=== PATIENT | male | born 1955 | race Caucasian/White ===

== ENCOUNTER 2021-10-09 08:00 | Outpatient (CLI) | payer OTHER, SELFPAY | END 2021-10-09 08:01 | disposition home or self-care (01) | PROVIDERS: Visit Provider Nurse Practitioner Family | DX: E11.622 Type 2 diabetes mellitus with other skin ulcer (principal); I87.2 Venous insufficiency (chronic) (peripheral); I89.0 Lymphedema, not elsewhere classified; I87.313 Chronic venous hypertension (idiopathic) with ulcer of bilateral lower extremity; L97.815 Non-pressure chronic ulcer of other part of right lower leg with muscle involvement without evidence of necrosis; L97.215 Non-pressure chronic ulcer of right calf with muscle involvement without evidence of necrosis; L97.825 Non-pressure chronic ulcer of other part of left lower leg with muscle involvement without evidence of necrosis; L97.822 Non-pressure chronic ulcer of other part of left lower leg with fat layer exposed; Z79.84 Long term (current) use of oral hypoglycemic drugs; E66.01 Morbid (severe) obesity due to excess calories; Z68.44 Body mass index [BMI] 60.0-69.9, adult; S81.002A Unspecified open wound, left knee, initial encounter | CPT/HCPCS: 11042; 11043; 11046 ==

== ENCOUNTER 2021-10-21 08:37 | Outpatient (CLI) | payer OTHER, SELFPAY ==
--- NOTE | 2021-10-21 08:45 | CRLHL7_ITS ---
For Patients: As a result of the Century Cures Act, medical imaging exams and procedure reports are released immediately into your electronic medical record. You may view this report before your referring provider. If you have questions, please contact your health care provider. DUPLEX ARTERIAL ULTRASOUND BILATERAL LOWER EXTREMITY CLINICAL HISTORY: Lower extremity pain, concern for peripheral disease. COMPARISON: None. TECHNIQUE: The bilateral lower extremity arteries were examined per exam specific protocol with kitchen-scale ultrasound, color-flow and Doppler spectral analysis. Peak systolic velocities (PSV), Doppler waveform quality and Velocity Ratios if applicable, were documented at sites per exam specific protocol. FINDINGS: Multiphasic waveforms are seen throughout both lower extremity arterial systems. No evidence of hemodynamically significant stenoses or occlusions. RIGHT: PSV (cm/second). Waveform (Tri-T, Bi-B Ross-M). O AND M SUPERVISOR: 108. T. DFA: 90. T. FA PRX: 99. T. FA MID: 111. T. FA DISTAL: 100. T. POP A: 100. T. MERI A: 67. Multi. WOOD TURNING LATHE OPERATOR: 60. Multi. OCTAVIANO: 36. Multi. DPA: 54. Multi. LEFTT: PSV (cm/second). Waveform (Tri-T, Bi-B Ross-M). O AND M SUPERVISOR: 92. T. DFA: 39. T. FA PRX: 123. T. FA MID: 108. T. FA DISTAL: 115. T. POP A: 104. T. MERI A: 38. Multi. WOOD TURNING LATHE OPERATOR: 49. Multi. OCTAVIANO: 36. Multi DPA: 91. Multi. IMPRESSION: Multiphasic waveforms throughout both lower extremity arterial systems. No evidence of hemodynamically significant stenoses or occlusions. Douglas Jaimes M.D. [email or web address] YARELIS/Dictated by: Douglas Jaimes MD @ 10/21/2021 2:42:00 PM (Electronically Signed)
== END 2021-10-21 08:38 | disposition home or self-care (01) ==
LOC: US 08:38
PROVIDERS: PCP Internal Medicine; Visit Provider Nurse Practitioner Family
DX: M79.604 Pain in right leg (principal); M79.605 Pain in left leg
CPT/HCPCS: 93926

== ENCOUNTER 2021-10-21 09:54 | Outpatient (CLI) | payer OTHER, SELFPAY | END 2021-10-21 09:55 | disposition home or self-care (01) | LOC: WOUND 09:55 | PROVIDERS: PCP Internal Medicine; Visit Provider Physician Assistant Surgical | DX: E11.622 Type 2 diabetes mellitus with other skin ulcer (principal); I87.311 Chronic venous hypertension (idiopathic) with ulcer of right lower extremity; L97.212 Non-pressure chronic ulcer of right calf with fat layer exposed; S81.802A Unspecified open wound, left lower leg, initial encounter | CPT/HCPCS: 99214 ==

== ENCOUNTER 2021-10-26 10:47 | Outpatient (CLI) | payer OTHER, SELFPAY | END 2021-10-26 10:48 | disposition home or self-care (01) | LOC: WOUND 10:47 | PROVIDERS: PCP Internal Medicine; Visit Provider Nurse Practitioner Family | DX: E11.622 Type 2 diabetes mellitus with other skin ulcer (principal); L97.815 Non-pressure chronic ulcer of other part of right lower leg with muscle involvement without evidence of necrosis; L97.825 Non-pressure chronic ulcer of other part of left lower leg with muscle involvement without evidence of necrosis; L97.215 Non-pressure chronic ulcer of right calf with muscle involvement without evidence of necrosis; I89.0 Lymphedema, not elsewhere classified; Z79.84 Long term (current) use of oral hypoglycemic drugs | CPT/HCPCS: 11042; 11045 ==

== ENCOUNTER 2021-11-03 13:02 | Outpatient (CLI) | payer OTHER, SELFPAY | END 2021-11-03 13:03 | disposition home or self-care (01) | LOC: WOUND 13:02 | PROVIDERS: PCP Internal Medicine; Visit Provider Nurse Practitioner Family | DX: E11.622 Type 2 diabetes mellitus with other skin ulcer (principal); L97.215 Non-pressure chronic ulcer of right calf with muscle involvement without evidence of necrosis; L97.815 Non-pressure chronic ulcer of other part of right lower leg with muscle involvement without evidence of necrosis; S81.802A Unspecified open wound, left lower leg, initial encounter; Z79.84 Long term (current) use of oral hypoglycemic drugs | CPT/HCPCS: 11042 ==

== ENCOUNTER 2021-11-17 09:03 | Outpatient (CLI) | payer OTHER, SELFPAY | END 2021-11-17 09:04 | disposition home or self-care (01) | LOC: WOUND 09:03 | PROVIDERS: PCP Internal Medicine; Visit Provider Nurse Practitioner Family | DX: E11.622 Type 2 diabetes mellitus with other skin ulcer (principal); L97.815 Non-pressure chronic ulcer of other part of right lower leg with muscle involvement without evidence of necrosis; S81.802A Unspecified open wound, left lower leg, initial encounter; I89.0 Lymphedema, not elsewhere classified; Z79.84 Long term (current) use of oral hypoglycemic drugs | CPT/HCPCS: 11042 ==

== ENCOUNTER 2021-12-01 09:12 | Outpatient (CLI) | payer OTHER, SELFPAY | END 2021-12-01 09:13 | disposition home or self-care (01) | LOC: WOUND 09:13 | PROVIDERS: PCP Internal Medicine; Visit Provider Nurse Practitioner Family | DX: E11.622 Type 2 diabetes mellitus with other skin ulcer (principal); L97.815 Non-pressure chronic ulcer of other part of right lower leg with muscle involvement without evidence of necrosis; L97.215 Non-pressure chronic ulcer of right calf with muscle involvement without evidence of necrosis; Z79.84 Long term (current) use of oral hypoglycemic drugs | CPT/HCPCS: 11042 ==

== ENCOUNTER 2021-12-26 11:24 | Emergency (ER) | payer OTHER, SELFPAY ==
--- NOTE | 2021-12-26 11:29 | ED.GENADULT ---
HPI - General Adult General Chief complaint: Back Injury/Pain Stated complaint: lower back pain left side Time Seen by Provider: 12/26/21 11:26 History of Present Illness HPI narrative: Ender is a 66yo male patient with h/o T2DM, chronic bilateral LE wounds, and chronic back pain that presents to the ED via POV with complaints of left sided back pain. Review of Ender's records indicate that he was recently seen in September of 2021 for complaints of poorly controlled chronic bilateral lower extremity wounds. At that time, the patient was scheduled for outpatient infusion of IV antibiotics. Patient reports he has not had significant change in smell, pain, or drainage noted from the wound. Although, he reports, at wound care states that the wounds are significantly improving. The patient states today, his family noted with wound dressing change that there is odor to the wound again. He does not smell this. In addition, the patient states that his low back pain on the left has been present for approximately 3 days. It is worsened with movement and forward bending. The patient states he has had no recent trauma or injury. Although, the patient had a fall approximately 4 months prior. He was in the emergency department, evaluated, and treated. He is uncertain this could be secondary to urinary complaints. He does not have a history of frequent urinary tract infection or kidney stones. Related Data Home Medications Medication Instructions Recorded Confirmed acetic acid 0.25 % irrigation 12/26/21 solution amiodarone 200 mg tablet mg 12/26/21 apixaban 5 mg tablet (Eliquis) mg 12/26/21 carvedilol 12.5 mg tablet mg 12/26/21 gentamicin 0.1 % topical ointment topical 12/26/21 metformin 500 mg tablet mg 12/26/21 pravastatin 20 mg tablet mg 12/26/21 sacubitril 49 mg-valsartan 51 mg tab 12/26/21 tablet (Entresto) spironolactone 25 mg tablet mg 12/26/21 tizanidine 4 mg tablet mg 12/26/21 Previous Rx's Medication Instructions Recorded hydrocodone 5 mg-acetaminophen 325 1 tab PO BID PRN flank pain #6 tabs 12/26/21 mg tablet sulfamethoxazole 800 1 tab PO BID #10 tabs 12/26/21 mg-trimethoprim 160 mg tablet (Bactrim DS) Allergies Allergy/AdvReac Type Severity Reaction Status Date / Time No Known Drug Allergies Allergy Verified 12/26/21 11:41 Review of Systems Const: Denies: fever, chills, fatigue or malaise Eyes: Denies: change in vision or blurry vision ENMT: Denies: throat pain or ear pain Cardio: Denies: chest pain, palpitations or shortness of breath with exertion Resp: Denies: shortness of breath, cough, wheezing or pain on inspiration GI: Denies: abdominal pain, nausea, vomiting, diarrhea or constipation : Denies: painful urination, urinary frequency or urinary urgency Musculo: Reports: back pain; Denies: joint pain Integ/Breast: Reports: non-healing lesion (chronic LE wounds, reportedly improved per patient); Denies: rash Neuro: Denies: headache, numbness in extremities, weakness in extremities or dizziness Psych: Denies: anxiety or mood swings Endo: Denies: fatigue Allergy/Immuno: Denies: wheezing PFSH PFSH Social History Smoking Status: Unknown if ever smoked How often do you have a drink containing alcohol: never How often do you have six or more drinks on one occasion: Never AUDIT-C Alcohol total score: 0 Non-prescribed substance use: denies use Exam Const: Vital Signs, click to edit/add: Vital Signs - 24 hr 12/26/21 11:34 Temperature 97.0 F L Pulse Rate [Right Pulse Oximeter] 62 Respiratory Rate 20 Blood Pressure [Ri ght Upper Arm] 149/97 H Pulse Oximetry 94 Oxygen Delivery Me thod Room Air Documenting provider has reviewed patient's vital signs: yes Common normals: no apparent distress, oriented x3, no limitations, healthy appearing, alert and well nourished General appearance: cooperative, comfortable and well developed; not in distress Nutritional appearance: obese morbidly obese Orientation/consciousness: Yes awake, Yes oriented to person and Yes oriented to place HENMT: Common normals: normocephalic, head/scalp atraumatic and hearing grossly normal bilaterally Head and scalp: normocephalic and atraumatic Face and sinus: normal facial exam (within limits of masking) Eye: Common normals: EOMs intact bilaterally General eye: normal appearance of both eyes Resp: Common normals: normal respiratory effort, no retractions, no use of accessory muscles and clear to auscultation bilaterally Effort & inspection: able to speak in complete sentences Auscultation: clear to auscultation bilaterally Cardio: Common normals: regular rate, regular rhythm, S1 normal heart sound and S2 normal heart sound Rate: regular rate Rhythm: regular rhythm Heart sounds: S1 normal and S2 normal Other: HS distant 2/2 body habitus GI: Common normals: soft to palpation and non-tender Palpation: soft : Common normals: no CVA tenderness Bladder/kidney exam: no CVA tenderness Back & Pelvis: Common normals: no CVA tenderness, thoracic and lumbar spine normal to inspection and no thoracic nor lumbar tenderness Extremity: General: edema (bilateral chronic, pitting with wraps in place; scaling chronic icthyosis) and other findings (greenish-yellow discharge noted on wound dressing, minimal) Legs Lower/ Feet Lateral Rt1: 1. wound 4.5cm x 2.5cm (est) with granulomatous tissue surrounding 2. 1cm (est) circular wound with granulomatous tissue surrounding Neuro: Common normals: oriented x3, moves all extremities, no focal motor deficits and no sensory deficits noted Sensorium/orientation: awake, alert, oriented to person and oriented to place Gait (neuro): assistive device used other (walker at home, wheelchair for distances) Motor exam: no movement abnormalities noted Psych: Common normals: mental status grossly normal, thought process normal and activity/motor behavior normal Appearance: grossly normal Thought process: normal thought process Thought content: normal thought content Attention/concentration: attention grossly intact Memory/cognition: memory grossly intact Insight: insight good Judgement: judgment good Skin: Common normals: no rashes or lesions noted General skin exam: no rashes or lesions noted Course Course Hospital Course: Ender presented with complaints of left low back pain without acute injury or trauma and request for reevaluation of RLE wound, currently followed by wound care. He has labs as noted with plan for evaluation of possible etiology of condition. No acute trauma or injury to suggest musculoskeletal injury, however patient is supermorbidly obese, and we discussed potential self-injury due to body habitus. Patient's RLE wound was unwrapped, cultured, and fresh wrap was placed for wound care. Labs are pending. Unfortunately due to patient's body habitus, we will be unable to perform imaging to evaluate if concern for stone is present. The patient is given anticipatory guidance regarding s/s of potential stone obstruction including anuria, dysuria, or worsening pain. If these or fever develops, he is strongly urge to follow-up for reevaluation and determination of closest facility that may be able to offer imaging. Wound dressing: Vaselline gauze over RLE to ankle with adaptec applied at ankle. Entire leg dressed Vital Signs Vital signs: Initial Vital Signs Temperature 97.0 F L 12/26/21 11:34 Temperature Source Temporal Artery Scan 12/26/21 11:34 Pulse Rate 62 12/26/21 11:34 Respiratory Rate 20 12/26/21 11:34 Blood Pressure 149/97 H 12/26/21 11:34 Blood Pressure Mean 114 12/26/21 11:34 Blood Pressure Position Sitting 12/26/21 11:34 Pulse Oximetry 94 12/26/21 11:34 Oxygen Delivery Method 12/26/21 11:34 Vital Signs Temperature 97.0 F L 12/26/21 11:34 Pulse Rate 62 12/26/21 11:34 Respiratory Rate 20 12/26/21 11:34 Blood Pressure 149/97 H 12/26/21 11:34 Pulse Oximetry 94 12/26/21 11:34 Oxygen Delivery Method 12/26/21 11:34 Temperature 97.0 F L 12/26/21 11:34 Pulse Rate 62 12/26/21 11:34 Respiratory Rate 20 12/26/21 11:34 Blood Pressure 149/97 H 12/26/21 11:34 Pulse Oximetry 94 12/26/21 11:34 Oxygen Delivery Method 12/26/21 11:34 Medical Decision Making MDM Narrative Medical decision making narrative: Life-threatening differential diagnoses considered include: cauda equina and epidural abscess, mass, or lesion. Other differential diagnoses considered include: sprain or strain, contusion, nerve root entrapment, radiculopathy, muscle spasm, urolithiasis, lumbar fracture, pyelonephritis, as well as other etiologies. The patient denied saddle anesthesia, bowel or bladder incontinence, or lower extremity weakness. Lab Data Lab results reviewed: Yes I reviewed the patient's lab results Labs: Lab Results 12/26/21 12/26/21 12/26/21 Range/Units 12:05 12:53 12:53 WBC 7.22 (4.50-11.00) K/uL RBC 5.01 (4.30-5.90) m/uL Hgb 12.3 L (13.5-17.5) gm/dL Hct 42.5 (37.0-53.0) % MCV 85 (80-100) fL MCH 25 L (26-34) pg MCHC 29 L (32-36) gm/dL RDW Coeff of Asael 17.9 H (11.5-15.5) % Plt Count 218 (140-440) K/uL Neut % (Auto) 73.9 H (42.0-72.0) % Lymph % (Auto) 15.0 L (20-44) % [place] % (Auto) 6.0 (0.0-11.0) % Eos % (Auto) 4.6 (0.0-7.0) % Baso % (Auto) 0.4 (0.0-3.0) % Neut # (Auto) 5.30 (1.7-7.0) K/uL Lymph # (Auto) 1.10 (0.90-2.90) K/uL [place] # (Auto) 0.40 (0.00-0.90) K/UL Eos # (Auto) 0.33 (0.00-0.50) K/uL Baso # (Auto) 0.03 (0.00-0.30) K/uL Abs Immat Gran (auto) 0.01 (0.00-0.30) K/uL Diff Slide Review Acceptable Review (Acceptable) Sodium 141 (135-149) mmol/L Potassium 5.7 H (3.6-5.1) mmol/L Chloride 100 (96-114) mmol/L Carbon Dioxide 31 (20-32) mmol/L BUN 29 (7-30) mg/dL Creatinine 0.9 (0.5-1.5) mg/dL Estimated Creat Clear 94.05 Estimated GFR 95 ml/min Glucose 114 (60-115) mg/dL Calcium 9.4 (8.4-10.6) mg/dL Total Bilirubin 0.6 (0.1-1.5) mg/dL AST 16 (12-35) U/L ALT 10 (4-50) U/L Alkaline Phosphatase 83 (40-150) U/L Total Protein 9.0 H (6.0-8.3) g/dL Albumin 4.2 (3.3-5.0) g/dL Urine Color Yellow (Yellow) Urine Appearance Cloudy A (Clear) Urine pH 5.5 (5.0-8.5) Ur Specific [place] 1.020 (1.000-1.030) Urine Protein Trace A (Negative) Urine Glucose (UA) Negative (Negative) Urine Ketones Negative (Negative) Urine Blood 3+ A (Negative) Urine Nitrite Positive A (Negative) Urine Bilirubin Negative (Negative) Urine Urobilinogen 1.0 (0.2-1.0) Ur Leukocyte Esterase 3+ A (Negative) Urine RBC 25-50 A (0-2) Urine WBC 25-50 A (0-5) Ur Squamous Epith Cells Moderate A (None-Few) Other Sediment TUR[employer]ER Urine Bacteria Many A (None) Urine Yeast Moderate A (None) Discharge Plan Discharge Clinical Impression: Chronic wound of extremity Urinary tract infection Qualifiers: Urinary tract infection type: acute cystitis Hematuria presence: with hematuria Qualified Code(s): N30.01 - Acute cystitis with hematuria Low back pain Qualifiers: Chronicity: acute Back pain laterality: left Sciatica presence: without sciatica Qualified Code(s): M54.50 - Low back pain, unspecified Patient Disposition: Home, Self-Care Condition: Stable Instructions: Flank Pain (ED) Additional Instructions: Thank you for choosing [facility] for your care today. Consider treatment with Flomax, NSAIDs, and pain medication. Take antibiotic as directed. Use medication as directed. Urology referral should be considered with patient's primary physician if pain does not improve after treatment. Encouraged to drink plenty of water. Patient advised to eliminate soda and tea from diet. Discussed consideration of straining urine for stone analysis, if stone passes. In addition, continue wound care dressing changes as noted, with care to be taken around the ankle to ensure wraps are not causing restriction. The patient is also given guidance on foot soaks that may assist with cares including Epsom salt soaks and Listerine soaks three times daily, if access to someone to rewrap lower extremities. Follow up recommended for new or worsening symptoms. I recommend calling primary care for follow-up in the next 3-5 days for persistent symptoms. If new or worsening symptoms develop or you have any concerns in the meantime, please call your primary care clinic or return to the ER for re-evaluation. Activity Level: No Restrictions and Activity as Tolerated Discharge Diet: Low Fat/Low Cholesterol Prescriptions: New sulfamethoxazole-trimethoprim [Bactrim DS] 800-160 mg tablet 1 tab PO BID Qty: 10 0RF hydrocodone-acetaminophen 5-325 mg tablet 1 tab PO BID PRN (Reason: flank pain) Qty: 6 0RF Held spironolactone 25 mg tablet Hold Instructions: Resume on 01/01/22. Hold while taking antibiotic. Follow with primary physician to have potassium level reassessed. No Action metformin 500 mg tablet carvedilol 12.5 mg tablet tizanidine 4 mg tablet amiodarone 200 mg tablet acetic acid 0.25 % solution Label Comments: SOAK TO OPEN WOUNDS ONCE DAILY pravastatin 20 mg tablet gentamicin 0.1 % ointment TOPICAL Label Comments: APPLY TO WOUND BEDS TWICE DAILY FOR 1 WEEK Eliquis 5 mg tablet Entresto 49-51 mg tablet Follow Up/Referrals: Pushpa Meier [Primary Care Provider] - Stand Alone [facility]: [facility] Info Inst[facility]
[2021-12-26 11:34] VITALS: BP 149/97; PULSE 62; RESP 20; TEMP 36.1; O2SAT 94; BMI 54.5
[2021-12-26 12:16] LABS: Appearance Urine Cloudy (Clear); Bilirubin Urine Negative (Negative); Blood Urine 3+ (Negative); Color Urine Yellow (Yellow); Glucose Urine Negative (Negative); Ketones Urine Negative (Negative); Leukocyte Esterase Urine 3+ (Negative); Nitrite Urine Positive (Negative); Protein Urine Trace (Negative); pH Urine 5.5 (5.0-8.5)
[2021-12-26 12:31] LABS: Bacteria Urine Many; RBC Urine 25-50 (0-2); Squamous Epithelial Cell Urine Moderate (None-Few); WBC Urine 25-50 (0-5)
--- NOTE | 2021-12-26 12:40 | ED.NURSE ---
and justowriter operator in to unwrap wound on pt's R leg. MD removed old dressing, collected wound culture of wound on lateral lower R leg. Wound dressed by with vaseline gauze, adaptic, telfa, kerlix gauze roll, and JONA wrap. Burlap Bag Sewer then applied coban around pt's entire lower R leg.
[2021-12-26 12:59] LABS: Basophils Absolute Auto 0.03 K/uL (0.00-0.30); Basophils Percent Auto 0.4 % (0.0-3.0); Eosinophils Absolute Auto 0.33 K/uL (0.00-0.50); Eosinophils Percent Auto 4.6 % (0.0-7.0); Hematocrit 42.5 % (37.0-53.0); Hemoglobin* 12.3 gm/dL (13.5-17.5); Immature Granulocytes Abs Auto 0.01 K/uL (0.00-0.30); Mean Corpuscular HGB Conc 29 gm/dL (32-36); Mean Corpuscular Hemoglobin 25 pg (26-34); Mean Corpuscular Volume 85 fL (80-100); Neutrophils Percent Auto 73.9 % (42.0-72.0); Platelet Count* 218 K/uL (140-440); RDW Coefficient of Variation % 17.9 % (11.5-15.5); Red Blood Count 5.01 m/uL (4.30-5.90); White Blood Count* 7.22 K/uL (4.50-11.00)
[2021-12-26 13:11] LABS: Albumin* 4.2 g/dL (3.3-5.0); Chloride* 100 mmol/L (96-114)
[2021-12-26 13:12] LABS: Potassium* 5.7 mmol/L (3.6-5.1); Sodium* 141 mmol/L (135-149)
[2021-12-26 13:14] LABS: Aspartate Amino Transferase* 16 U/L (12-35); Bilirubin Total* 0.6 mg/dL (0.1-1.5); Carbon Dioxide* 31 mmol/L (20-32); Creatinine* 0.9 mg/dL (0.5-1.5); Est. Creatinine Clearance* 94.05; Estimated Glomerular Filt Rate 95 ml/min
[2021-12-26 13:15] LABS: Alanine Aminotransferase* 10 U/L (4-50); Alkaline Phosphatase* 83 U/L (40-150); Blood Urea Nitrogen* 29 mg/dL (7-30); Calcium* 9.4 mg/dL (8.4-10.6); Glucose* 114 mg/dL (60-115)
[2021-12-26 13:17] LABS: Slide Review Reflex Yes
[2021-12-26 13:18] LABS: Slide Review Acceptable Review (Acceptable)
== END 2021-12-26 13:50 | disposition home or self-care (01) ==
PROVIDERS: Emergency Provider Family Medicine; PCP Internal Medicine
DX: M54.50 Low back pain, unspecified (principal); N30.01 Acute cystitis with hematuria; S81.801A Unspecified open wound, right lower leg, initial encounter
CPT/HCPCS: 36415; 80053; 81003; 81015; 85025; 87086; 87186; 87205; 99284

== ENCOUNTER 2021-12-29 08:59 | Outpatient (CLI) | payer OTHER, SELFPAY | END 2021-12-29 09:00 | disposition home or self-care (01) | LOC: WOUND 08:59 | PROVIDERS: PCP Internal Medicine; Visit Provider Nurse Practitioner Family | DX: E11.622 Type 2 diabetes mellitus with other skin ulcer (principal); L97.815 Non-pressure chronic ulcer of other part of right lower leg with muscle involvement without evidence of necrosis; L97.215 Non-pressure chronic ulcer of right calf with muscle involvement without evidence of necrosis; L97.822 Non-pressure chronic ulcer of other part of left lower leg with fat layer exposed; Z79.84 Long term (current) use of oral hypoglycemic drugs | CPT/HCPCS: 11042; 11045; 87070; 87186 ==

== ENCOUNTER 2022-01-05 13:05 | Outpatient (CLI) | payer OTHER, SELFPAY | END 2022-01-05 13:06 | disposition home or self-care (01) | LOC: WOUND 13:05 | PROVIDERS: PCP Internal Medicine; Visit Provider Nurse Practitioner Family | DX: E11.622 Type 2 diabetes mellitus with other skin ulcer (principal); L97.815 Non-pressure chronic ulcer of other part of right lower leg with muscle involvement without evidence of necrosis; L97.825 Non-pressure chronic ulcer of other part of left lower leg with muscle involvement without evidence of necrosis; L97.219 Non-pressure chronic ulcer of right calf with unspecified severity; Z79.84 Long term (current) use of oral hypoglycemic drugs | CPT/HCPCS: 11042; 11045 ==

== ENCOUNTER 2022-01-19 09:00 | Outpatient (CLI) | payer OTHER, SELFPAY | END 2022-01-19 09:01 | disposition home or self-care (01) | LOC: WOUND 09:00 | PROVIDERS: PCP Internal Medicine; Visit Provider Nurse Practitioner Family | DX: E11.622 Type 2 diabetes mellitus with other skin ulcer (principal); L97.812 Non-pressure chronic ulcer of other part of right lower leg with fat layer exposed; S81.802A Unspecified open wound, left lower leg, initial encounter; Z79.84 Long term (current) use of oral hypoglycemic drugs | CPT/HCPCS: 11042; 15271; Q4151 ==

== ENCOUNTER 2022-01-26 08:57 | Outpatient (CLI) | payer OTHER, SELFPAY | END 2022-01-26 08:58 | disposition home or self-care (01) | LOC: WOUND 08:58 | PROVIDERS: PCP Internal Medicine; Visit Provider Nurse Practitioner Family | DX: E11.622 Type 2 diabetes mellitus with other skin ulcer (principal); L97.822 Non-pressure chronic ulcer of other part of left lower leg with fat layer exposed; S81.802A Unspecified open wound, left lower leg, initial encounter; Z79.84 Long term (current) use of oral hypoglycemic drugs | CPT/HCPCS: 11042; 11045 ==

== ENCOUNTER 2022-02-02 08:30 | Outpatient (CLI) | payer OTHER, SELFPAY | END 2022-02-02 08:31 | disposition home or self-care (01) | PROVIDERS: PCP Internal Medicine; Visit Provider Nurse Practitioner Family | DX: E11.622 Type 2 diabetes mellitus with other skin ulcer (principal); L97.815 Non-pressure chronic ulcer of other part of right lower leg with muscle involvement without evidence of necrosis; S81.802A Unspecified open wound, left lower leg, initial encounter; Z79.84 Long term (current) use of oral hypoglycemic drugs | CPT/HCPCS: 11042; 11045 ==

== ENCOUNTER 2022-02-16 08:46 | Outpatient (CLI) | payer MEDICARE, BC, SELFPAY | END 2022-02-16 08:47 | disposition home or self-care (01) | PROVIDERS: PCP Internal Medicine; Visit Provider Nurse Practitioner Family | DX: E11.622 Type 2 diabetes mellitus with other skin ulcer (principal); L97.815 Non-pressure chronic ulcer of other part of right lower leg with muscle involvement without evidence of necrosis; S81.802A Unspecified open wound, left lower leg, initial encounter; I89.0 Lymphedema, not elsewhere classified; Z79.84 Long term (current) use of oral hypoglycemic drugs | CPT/HCPCS: 11042; 11045 ==

== ENCOUNTER 2022-03-09 08:50 | Outpatient (CLI) | payer MEDICARE, BC, SELFPAY | END 2022-03-09 08:51 | disposition home or self-care (01) | LOC: WOUND 08:51 | PROVIDERS: PCP Internal Medicine; Visit Provider Nurse Practitioner Family | DX: E11.622 Type 2 diabetes mellitus with other skin ulcer (principal); L97.815 Non-pressure chronic ulcer of other part of right lower leg with muscle involvement without evidence of necrosis; L97.822 Non-pressure chronic ulcer of other part of left lower leg with fat layer exposed; Z79.84 Long term (current) use of oral hypoglycemic drugs | CPT/HCPCS: 15271; Q4158 ==

== ENCOUNTER 2022-03-23 08:05 | Outpatient (CLI) | payer MEDICARE, BC, SELFPAY | END 2022-03-23 08:06 | disposition home or self-care (01) | LOC: WOUND 08:06 | PROVIDERS: PCP Internal Medicine; Visit Provider Nurse Practitioner Family | DX: E11.622 Type 2 diabetes mellitus with other skin ulcer (principal); L97.815 Non-pressure chronic ulcer of other part of right lower leg with muscle involvement without evidence of necrosis; L97.822 Non-pressure chronic ulcer of other part of left lower leg with fat layer exposed; Z79.84 Long term (current) use of oral hypoglycemic drugs | CPT/HCPCS: 11042; 11045 ==

== ENCOUNTER 2022-03-30 07:46 | Outpatient (CLI) | payer MEDICARE, BC, SELFPAY | END 2022-03-30 07:47 | disposition home or self-care (01) | LOC: WOUND 07:46 | PROVIDERS: PCP Internal Medicine; Visit Provider Nurse Practitioner Family | DX: E11.622 Type 2 diabetes mellitus with other skin ulcer (principal); L97.815 Non-pressure chronic ulcer of other part of right lower leg with muscle involvement without evidence of necrosis; L97.822 Non-pressure chronic ulcer of other part of left lower leg with fat layer exposed; Z79.84 Long term (current) use of oral hypoglycemic drugs; I89.0 Lymphedema, not elsewhere classified | CPT/HCPCS: 11042 ==

== ENCOUNTER 2022-04-20 07:52 | Outpatient (CLI) | payer MEDICARE, BC, SELFPAY | END 2022-04-20 07:53 | disposition home or self-care (01) | LOC: WOUND 07:53 | PROVIDERS: PCP Internal Medicine; Visit Provider Nurse Practitioner Family | DX: E11.622 Type 2 diabetes mellitus with other skin ulcer (principal); L97.825 Non-pressure chronic ulcer of other part of left lower leg with muscle involvement without evidence of necrosis; L97.215 Non-pressure chronic ulcer of right calf with muscle involvement without evidence of necrosis; I89.0 Lymphedema, not elsewhere classified | CPT/HCPCS: 11042 ==

== ENCOUNTER 2022-05-04 07:56 | Outpatient (CLI) | payer MEDICARE, BC, SELFPAY | END 2022-05-04 07:57 | disposition home or self-care (01) | LOC: WOUND 07:56 | PROVIDERS: PCP Internal Medicine; Visit Provider Nurse Practitioner Family | DX: E11.622 Type 2 diabetes mellitus with other skin ulcer (principal); L97.822 Non-pressure chronic ulcer of other part of left lower leg with fat layer exposed; L97.815 Non-pressure chronic ulcer of other part of right lower leg with muscle involvement without evidence of necrosis; Z79.84 Long term (current) use of oral hypoglycemic drugs | CPT/HCPCS: 11042 ==

== ENCOUNTER 2022-05-18 07:34 | Outpatient (CLI) | payer MEDICARE, BC, SELFPAY | END 2022-05-18 07:35 | disposition home or self-care (01) | LOC: WOUND 07:35 | PROVIDERS: PCP Internal Medicine; Visit Provider Nurse Practitioner Family | DX: E11.622 Type 2 diabetes mellitus with other skin ulcer (principal); L97.815 Non-pressure chronic ulcer of other part of right lower leg with muscle involvement without evidence of necrosis; L97.822 Non-pressure chronic ulcer of other part of left lower leg with fat layer exposed; I87.2 Venous insufficiency (chronic) (peripheral); Z79.4 Long term (current) use of insulin | CPT/HCPCS: 11042 ==

== ENCOUNTER 2022-06-01 07:48 | Outpatient (CLI) | payer MEDICARE, BC, SELFPAY | END 2022-06-01 07:49 | disposition home or self-care (01) | LOC: WOUND 07:48 | PROVIDERS: PCP Internal Medicine; Visit Provider Nurse Practitioner Family | DX: E11.622 Type 2 diabetes mellitus with other skin ulcer (principal); L97.822 Non-pressure chronic ulcer of other part of left lower leg with fat layer exposed; L97.812 Non-pressure chronic ulcer of other part of right lower leg with fat layer exposed; Z79.84 Long term (current) use of oral hypoglycemic drugs | CPT/HCPCS: 11042 ==

== ENCOUNTER 2022-06-15 07:43 | Outpatient (CLI) | payer MEDICARE, BC, SELFPAY | END 2022-06-15 07:44 | disposition home or self-care (01) | LOC: WOUND 07:44 | PROVIDERS: PCP Internal Medicine; Visit Provider Physician Assistant Surgical | DX: E11.622 Type 2 diabetes mellitus with other skin ulcer (principal); L97.825 Non-pressure chronic ulcer of other part of left lower leg with muscle involvement without evidence of necrosis; L97.815 Non-pressure chronic ulcer of other part of right lower leg with muscle involvement without evidence of necrosis; Z79.84 Long term (current) use of oral hypoglycemic drugs | CPT/HCPCS: 11042 ==

== ENCOUNTER 2022-06-29 07:46 | Outpatient (CLI) | payer MEDICARE, BC, SELFPAY | END 2022-06-29 07:47 | disposition home or self-care (01) | LOC: WOUND 07:46 | PROVIDERS: PCP Internal Medicine; Visit Provider Nurse Practitioner Family | DX: E11.622 Type 2 diabetes mellitus with other skin ulcer (principal); L97.815 Non-pressure chronic ulcer of other part of right lower leg with muscle involvement without evidence of necrosis; L97.825 Non-pressure chronic ulcer of other part of left lower leg with muscle involvement without evidence of necrosis; Z79.84 Long term (current) use of oral hypoglycemic drugs | CPT/HCPCS: 11042 ==

== ENCOUNTER 2022-07-13 07:51 | Outpatient (CLI) | payer MEDICARE, BC, SELFPAY | END 2022-07-13 07:52 | disposition home or self-care (01) | LOC: WOUND 07:51 | PROVIDERS: PCP Internal Medicine; Visit Provider Nurse Practitioner Family | DX: E11.622 Type 2 diabetes mellitus with other skin ulcer (principal); L97.822 Non-pressure chronic ulcer of other part of left lower leg with fat layer exposed; L97.812 Non-pressure chronic ulcer of other part of right lower leg with fat layer exposed; Z79.84 Long term (current) use of oral hypoglycemic drugs | CPT/HCPCS: 11042 ==

== ENCOUNTER 2022-07-27 07:51 | Outpatient (CLI) | payer MEDICARE, BC, SELFPAY | END 2022-07-27 07:52 | disposition home or self-care (01) | LOC: WOUND 07:51 | PROVIDERS: PCP Internal Medicine; Visit Provider Nurse Practitioner Family | DX: E11.622 Type 2 diabetes mellitus with other skin ulcer (principal); L97.822 Non-pressure chronic ulcer of other part of left lower leg with fat layer exposed; L97.212 Non-pressure chronic ulcer of right calf with fat layer exposed; I89.0 Lymphedema, not elsewhere classified | CPT/HCPCS: 11042 ==

== ENCOUNTER 2022-08-10 07:53 | Outpatient (CLI) | payer MEDICARE, BC, SELFPAY | END 2022-08-10 07:54 | disposition home or self-care (01) | LOC: WOUND 07:53 | PROVIDERS: PCP Internal Medicine; Visit Provider Nurse Practitioner Family | DX: E11.622 Type 2 diabetes mellitus with other skin ulcer (principal); L97.822 Non-pressure chronic ulcer of other part of left lower leg with fat layer exposed; L97.212 Non-pressure chronic ulcer of right calf with fat layer exposed; I89.0 Lymphedema, not elsewhere classified; I87.2 Venous insufficiency (chronic) (peripheral) | CPT/HCPCS: 11042 ==

== ENCOUNTER 2022-09-14 13:16 | Outpatient (CLI) | payer MEDICARE, BC, SELFPAY | END 2022-09-14 13:17 | disposition home or self-care (01) | LOC: WOUND 13:17 | PROVIDERS: PCP Internal Medicine; Visit Provider Nurse Practitioner Family | DX: E11.622 Type 2 diabetes mellitus with other skin ulcer (principal); L97.822 Non-pressure chronic ulcer of other part of left lower leg with fat layer exposed; L97.212 Non-pressure chronic ulcer of right calf with fat layer exposed; I89.0 Lymphedema, not elsewhere classified; Z79.84 Long term (current) use of oral hypoglycemic drugs | CPT/HCPCS: 11042 ==

== ENCOUNTER 2022-09-28 07:45 | Outpatient (CLI) | payer MEDICARE, BC, SELFPAY | END 2022-09-28 07:46 | disposition home or self-care (01) | LOC: WOUND 07:45 | PROVIDERS: PCP Internal Medicine; Visit Provider Physician Assistant Surgical | DX: E11.622 Type 2 diabetes mellitus with other skin ulcer (principal); L97.822 Non-pressure chronic ulcer of other part of left lower leg with fat layer exposed; L97.212 Non-pressure chronic ulcer of right calf with fat layer exposed; Z79.84 Long term (current) use of oral hypoglycemic drugs; Z79.85 Long-term (current) use of injectable non-insulin antidiabetic drugs | CPT/HCPCS: 11042 ==

== ENCOUNTER 2022-10-19 07:55 | Outpatient (CLI) | payer MEDICARE, BC, SELFPAY | END 2022-10-19 07:56 | disposition home or self-care (01) | LOC: WOUND 07:55 | PROVIDERS: PCP Internal Medicine; Visit Provider Nurse Practitioner Family | DX: E11.622 Type 2 diabetes mellitus with other skin ulcer (principal); L97.212 Non-pressure chronic ulcer of right calf with fat layer exposed; L97.822 Non-pressure chronic ulcer of other part of left lower leg with fat layer exposed; Z79.84 Long term (current) use of oral hypoglycemic drugs | CPT/HCPCS: 11042 ==

== ENCOUNTER 2022-11-02 07:59 | Outpatient (CLI) | payer MEDICARE, BC, SELFPAY | END 2022-11-02 08:00 | disposition home or self-care (01) | LOC: WOUND 08:00 | PROVIDERS: PCP Internal Medicine; Visit Provider Nurse Practitioner Family | DX: E11.622 Type 2 diabetes mellitus with other skin ulcer (principal); L97.212 Non-pressure chronic ulcer of right calf with fat layer exposed; Z79.84 Long term (current) use of oral hypoglycemic drugs | CPT/HCPCS: 11042; 97597 ==

== ENCOUNTER 2022-11-16 07:46 | Outpatient (CLI) | payer MEDICARE, BC, SELFPAY | END 2022-11-16 07:47 | disposition home or self-care (01) | LOC: WOUND 07:47 | PROVIDERS: PCP Internal Medicine; Visit Provider Nurse Practitioner Family | DX: E11.622 Type 2 diabetes mellitus with other skin ulcer (principal); L97.822 Non-pressure chronic ulcer of other part of left lower leg with fat layer exposed; L97.212 Non-pressure chronic ulcer of right calf with fat layer exposed; I89.0 Lymphedema, not elsewhere classified; Z79.84 Long term (current) use of oral hypoglycemic drugs | CPT/HCPCS: 11042; 97597 ==

== ENCOUNTER 2022-11-25 16:53 | Inpatient (IN) | payer MEDICARE, BC, SELFPAY ==
[2022-11-25] VITALS (34 sets, daily range): BP systolic 94–143; BP diastolic 53–83; PULSE 59–75; RESP 18–28; TEMP 36.6–36.9; O2SAT 78–94; BMI 64.5
--- NOTE | 2022-11-25 17:25 | CRLHL7_ITS ---
For Patients: As a result of the Century Cures Act, medical imaging exams and procedure reports are released immediately into your electronic medical record. You may view this report before your referring provider. If you have questions, please contact your health care provider. HISTORY: Weakness. Hypoxia. TECHNIQUE: One view of the chest. COMPARISON: No prior. FINDINGS: Platelike opacity within the right lung likely relates to platelike atelectasis. Left lung clear. No pneumothorax. No pleural effusion. Cardiac size is prominent but exaggerated by technique. IMPRESSION: Platelike atelectasis within the right lung. Dictated by Kal Ayala MD @ 11/25/2022 7:27:04 PM Dictated by: Kal Ayala MD @ 11/25/2022 19:27:07 (Electronically Signed)
--- NOTE | 2022-11-25 17:28 | ED_ITS ---
HPI - General Adult General Time Seen by Provider: 17:28 Date Seen: 11/25/22 Chief complaint: Laceration/Wound Stated complaint: Weakness Time Seen by Provider: 11/25/22 17:03 History of Present Illness HPI narrative: This is a 67-year-old male who has a past medical history of atrial fibrillation (on amiodarone and Eliquis) high cholesterol, morbid obesity, non insulin- dependent type 2 diabetes, chronic bilateral lower extremity edema, chronic bilateral lower extremity wounds, possible lung disease or COPD (uses an albuterol inhaler p.r.n. at home) was brought to the ER today by EMS from home for evaluation of generalized weakness. According to the patient he does have chronic lower extremity wounds and goes to a wound clinic for wound evaluations every couple of weeks. He keeps dressings on his legs to catch chronic serosanguineous yellow drainage from both of his legs. They have not really changed lately. He is not particularly suspicious that they are infected. He does note that he has been having to use his inhaler fairly often the summer and he relates that today's when the Aricept from the [employer]. He has not been having to use his inhaler today. No recent cough or particular trouble breathing. Today he has just been weaker than normal. It sounds like he has had generally no energy. No other definite symptoms today. No chest pain. No palpitations. Initially says that there is no new cough, but then he says that his granddaughter came to visit this weekend in both in his not have a cough. No fever. No nausea or vomiting. No diarrhea. His blood sugar has been labile today, as high as 340 and as low as 70. He does not take any insulin for that. He says he thinks he probably has not been eating and drinking as much as he should lately. He was apparently weeks Ob 911 was called. Paramedics gave him 500 mL of fluid EN route. He was placed on oxygen by paramedics, and says he does not normally need oxygen. He does not feel short of breath. He had significant swelling of his backside and perineum with feces. It sounds like he has a very hard time doing his care is at home because of his BMI. He is not having any diarrhea. He has significant skin breakdown of the folds of the skin under his pannus, around his mons pubis, and the intertriginous areas of his groin. He is not able to see those. They are sensitive. It sounds like these are chronic Related Data Home Medications Medication Instructions Recorded Confirmed acetic acid 0.25 % irrigation 1 irrig irrigation Q6H PRN 12/26/21 11/25/22 solution amiodarone 200 mg tablet 200 mg PO DAILY 12/26/21 11/25/22 apixaban 5 mg tablet (Eliquis) 5 mg PO BID 12/26/21 11/25/22 carvedilol 12.5 mg tablet 12.5 mg PO BID 12/26/21 11/25/22 metformin 500 mg tablet 1,000 mg PO BID 12/26/21 11/25/22 pravastatin 20 mg tablet 20 mg PO NIGHTLY 12/26/21 11/25/22 sacubitril 49 mg-valsartan 51 mg 1 tab PO BID 12/26/21 11/25/22 tablet (Entresto) spironolactone 25 mg tablet 25 mg PO DAILY 12/26/21 11/25/22 albuterol sulfate 90 mcg/actuation 2 puff inhalation Q4H PRN wheezing 11/25/22 11/25/22 aerosol inhaler blood sugar diagnostic (Accu-Chek 11/25/22 11/25/22 SmartView Test Strips) semaglutide 0.25 mg or 0.5 mg (2 0.25 mg subcut .weekly 11/25/22 11/25/22 mg/3 mL) subcutaneous pen injector (Ozempic) Previous Rx's Medication Instructions Recorded sulfamethoxazole 800 1 tab PO BID #10 tabs 12/26/21 mg-trimethoprim 160 mg tablet (Bactrim DS) Allergies Allergy/AdvReac Type Severity Reaction Status Date / Time No Known Drug Allergies Allergy Verified 11/25/22 17:03 Review of Systems Narrative: As above, otherwise negative [facility] Medical History (Updated 11/26/22 @ 00:22 by Radha Austin MD) Morbid obesity with BMI of 60.0-69.9, adult ?E66.01 - Morbid (severe) obesity due to excess calories (ICD-10) ?Z68.44 - Body mass index [BMI] 60.0-69.9, adult (ICD-10) Non-pressure ulcer of right lower extremity with fat layer exposed ?L97.912 - Non-pressure chronic ulcer of unspecified part of right lower leg with fat layer exposed (ICD-10) Social History Smoking Status: Never smoker Do you use any of these nicotine containing products: None Second hand tobacco smoke exposure: No How often do you have a drink containing alcohol: never How often do you have six or more drinks on one occasion: Never AUDIT-C Alcohol total score: 0 Non-prescribed substance use: denies use service: No Exam Narrative: Exam Narrative: Constitutional: Appears well-developed. He has a very elevated BMI. He is initially sitting up on the edge of the bed with his feet down. Alert. Conversant. He is a vague historian. Overall, Non toxic. I assess the nurses in getting him cleaned up and positioned back into bed so he can rest. HENT: Head: Atraumatic. Nose: Nose normal. Mouth/Throat: Oral mucosa is clear. Mucous membranes are dry but not desiccated a cracked. no trismus. Pharynx normal. Eyes: Conjunctivae normal. EOM normal. Pupils equal, round, and reactive to light. No scleral icterus. Neck: Normal range of motion. Neck supple. No tracheal deviation present. Cardiovascular: Normal rate, regular rhythm. No gallop. No friction rub. No murmur heard. Symmetric radial artery pulses Pulmonary/Chest: Effort normal. No stridor. No respiratory distress. No wheezes. No rales. No rhonchi . No tenderness. Breathing easily on nasal cannula. Abdominal: Soft. Bowel sounds normal. Protuberant due to body habitus, No distension. No mass. No tenderness. No rebound. No guarding. Musculoskeletal: RUE: Normal range of motion. No tenderness. No deformity LUE: Normal range of motion. No tenderness. No deformity RLE: Normal range of motion. . No tenderness. No deformity LLE: Normal range of motion. No tenderness. No deformity He has what appears to be chronic edema both lower extremities. He has thickening and scaliness and lichenification of the skin of both of his legs. There appears to be some yellowish serous drainage attached to the skin on both of his legs, right more than the left. Which he says is chronic. No definite acute ulcer or bright erythema. Lymph: No cervical adenopathy. Neurological: Alert and oriented to person, place, and time. Normal strength. CN II-VII intact. No sensory deficit. GCS eye subscore is 4. GCS verbal subscore is 5. GCS motor subscore is 6. Normal coordination Skin: The skin underneath his abdominal pannus, around his mons pubis, and the intertriginous areas of his groin is erythematous and broken down. It is not really indurated to suggest cellulitis. Suspect this is probably a Susan infection/skin breakdown from moisture and limited hygiene. I am able to retract the skin of his mons pubis and see the glans of his penis, which appears normal. There is some skin breakdown on the scrotum but no evidence for scrotal edema or abscess. As were assisting with cleaning up his backside which was soiled with dark brown stool were able to evaluate his backside and gluteal cleft. There is chronic thickening of the skin over the sacrum but no evidence for ulcer. He does have some erythematous skin breakdown of the gluteal cleft but no obvious penetrating ulcer or abscess or definite induration to suggest cellulitis there. Skin of his trunk and upper extremities is warm and dry. No otherr kelsie noted. No pallor. Normal capillary refill. Psychiatric: Normal mood. Normal affect. Const: Vital Signs, click to edit/add: Vital Signs - 24 hr 11/25/22 16:57 11/25/22 17:25 11/25/22 17:25 Temperature 98.4 F Pulse Rate Respiratory Rate 18 20 Blood Pressure Blood Pressure [Ri ght Upper Arm] 139/83 Pulse Oximetry 84 L 84 L 92 Oxygen Delivery Me thod Room Air Room Air Nasal Cannula Oxygen Flow Rate 2 11/25/22 17:38 11/25/22 17:44 11/25/22 17:45 Temperature Pulse Rate 62 64 63 Respiratory Rate 24 Blood Pressure 113/66 Blood Pressure [Ri ght Upper Arm] Pulse Oximetry 93 93 92 Oxygen Delivery Me thod Nasal Cannula Oxygen Flow Rate 2 11/25/22 18:00 11/25/22 18:01 11/25/22 18:15 Temperature Pulse Rate 66 62 64 Respiratory Rate 26 H Blood Pressure 111/67 Blood Pressure [Ri ght Upper Arm] Pulse Oximetry 91 93 93 Oxygen Delivery Me thod Nasal Cannula Nasal Cannula Oxygen Flow Rate 2 2 11/25/22 18:30 11/25/22 18:32 11/25/22 18:45 Temperature Pulse Rate 63 63 72 Respiratory Rate Blood Pressure 116/67 Blood Pressure [Ri ght Upper Arm] Pulse Oximetry 92 91 91 Oxygen Delivery Me thod Oxygen Flow Rate 11/25/22 19:00 11/25/22 19:02 11/25/22 19:15 Temperature Pulse Rate 65 67 62 Respiratory Rate Blood Pressure 121/71 Blood Pressure [Ri ght Upper Arm] Pulse Oximetry 90 91 90 Oxygen Delivery Me thod Oxygen Flow Rate 11/25/22 19:30 11/25/22 19:33 11/25/22 19:45 Temperature Pulse Rate 68 75 69 Respiratory Rate Blood Pressure 117/60 Blood Pressure [Ri ght Upper Arm] Pulse Oximetry 89 91 87 L Oxygen Delivery Me thod Oxygen Flow Rate 11/25/22 20:00 11/25/22 20:01 11/25/22 20:15 Temperature Pulse Rate 64 66 63 Respiratory Rate Blood Pressure 104/58 L Blood Pressure [Ri ght Upper Arm] Pulse Oximetry 87 L 88 78 L Oxygen Delivery Me thod Oxygen Flow Rate 11/25/22 20:30 11/25/22 20:32 11/25/22 20:45 Temperature Pulse Rate 61 61 59 L Respiratory Rate Blood Pressure 99/58 L Blood Pressure [Ri ght Upper Arm] Pulse Oximetry 86 L 88 93 Oxygen Delivery Me thod Oxygen Flow Rate 2 3 4 11/25/22 21:00 11/25/22 21:01 11/25/22 21:02 Temperature Pulse Rate 62 65 62 Respiratory Rate Blood Pressure 94/53 L Blood Pressure [Ri ght Upper Arm] Pulse Oximetry 92 92 92 Oxygen Delivery Me thod Oxygen Flow Rate 4 4 11/25/22 21:15 11/25/22 21:30 11/25/22 21:32 Temperature Pulse Rate 62 60 64 Respiratory Rate Blood Pressure 95/63 Blood Pressure [Ri ght Upper Arm] Pulse Oximetry 90 90 90 Oxygen Delivery Me thod Oxygen Flow Rate 11/25/22 21:45 11/25/22 22:00 11/25/22 22:01 Temperature Pulse Rate 64 66 65 Respiratory Rate Blood Pressure 102/64 Blood Pressure [Ri ght Upper Arm] Pulse Oximetry 90 90 90 Oxygen Delivery Me thod Nasal Cannula Oxygen Flow Rate 4 11/25/22 22:15 Temperature Pulse Rate 66 Respiratory Rate Blood Pressure Blood Pressure [Ri ght Upper Arm] Pulse Oximetry 89 Oxygen Delivery Me thod Nasal Cannula Oxygen Flow Rate 4 Course Course Hospital Course: Admission history and physical, transfer summary all together. Patient was on the floor for 2 hours. Transferred immediately secondary to decompensation, respiratory arrest to [facility] ICU. Reevaluation(s) Reevaluation #1: Recheck-rostrally stable. Hemodynamically stable. Resting in bed. Vital Signs Vital signs: Initial Vital Signs Temperature 98.4 F 11/25/22 16:57 Temperature Source Temporal Artery Scan 11/25/22 16:57 Respiratory Rate 18 11/25/22 16:57 Blood Pressure 139/83 11/25/22 16:57 Blood Pressure Mean 101 11/25/22 16:57 Blood Pressure Position Sitting 11/25/22 16:57 Pulse Oximetry 84 L 11/25/22 16:57 Oxygen Delivery Method Room Air 11/25/22 16:57 Vital Signs Temperature 98.4 F 11/25/22 16:57 Respiratory Rate 18 11/25/22 16:57 Blood Pressure 139/83 11/25/22 16:57 Pulse Oximetry 84 L 11/25/22 16:57 Oxygen Delivery Method Room Air 11/25/22 16:57 Temperature 98.4 F 11/25/22 16:57 Pulse Rate 66 11/25/22 22:15 Respiratory Rate 26 H 11/25/22 18:01 Blood Pressure 102/64 11/25/22 22:01 Pulse Oximetry 89 11/25/22 22:15 Oxygen Delivery Method Nasal Cannula 11/25/22 22:15 Oxygen Flow Rate 4 11/25/22 22:15 Medical Decision Making [facility] Narrative Medical decision making narrative: This is a pleasant 67-year-old gentleman brought to the ER today from home by EMS for generalized weakness. He was found to be hypoxic per EMS and is now stable on 2 L nasal cannula. One. Neuro. Patient has generalized weakness but is able to ambulate here in the ER. No focal deficits. No acute stroke symptoms. 2. Pulmonary. Patient has had a mild cough for the past few days. Chest x-ray shows no definite acute pulmonary infiltrate, just right basilar atelectasis. He is hypoxic requiring 2 L nasal cannula but no respiratory distress. He . Has a history of using an albuterol inhaler from time to time at home, is not having any wheezing or bronchospasm on my exam tonight. Blood gas shows normal pH with the elevated pCO2, likely reflective of chronic CO2 retention related to his body habitus. At this point oxygen is stable on nasal cannula. No trend for respiratory depression and indicated that require BiPAP or intubation. With his recent cough we did check for coronavirus. He is COVID positive. May have been exposed when his family came to visit this weekend. Decadron administered for potential coronavirus causing hypoxia. He will require admission. Discussed with our hospitalist, Dr. Austin. She accepts him for admission here. She also requests that we add on D-dimer given risk of PE. She will follow up on the D-dimer test result and treat accordingly. 3. Cardiac. The EKG shows sinus rhythm. Troponin negative. 4. Renal. No acute kidney injury. Potassium and electrolytes normal. 5. Endocrine. Patient apparently has diabetes and had labile blood sugars at home today. Blood sugar on his BMP is normal. No evidence for DKA nonketotic hyperosmolar syndrome. The steroids administered for COVID here in the ER, will have to monitor for hyperglycemia while on the floor. ID. Skin exam shows signs for breakdown and excoriation under his abdominal pannus and in his groin intertriginous areas and gluteal cleft. Suspect likely related to Susan, difficulties with hygiene. No clear evidence for any abdominal wall cellulitis, panniculitis, Elizabeth's gangrene. no evidence for sepsis. Lab Data Labs: Lab Results 11/25/22 11/25/22 11/25/22 Range/Units 17:35 17:35 19:39 WBC 5.55 (4.50-11.00) K/uL RBC 4.34 (4.30-5.90) m/uL Hgb 10.6 L (13.5-17.5) gm/dL Hct 37.5 (37.0-53.0) % MCV 86 (80-100) fL MCH 24 L (26-34) pg MCHC 28 L (32-36) gm/dL RDW Coeff of Asael 18.1 H (11.5-15.5) % Plt Count 182 (140-440) K/uL Neut % (Auto) 70.8 (42.0-72.0) % Lymph % (Auto) 11.2 L (20-44) % Ramsey % (Auto) 16.9 H (0.0-11.0) % Eos % (Auto) 0.5 (0.0-7.0) % Baso % (Auto) 0.4 (0.0-3.0) % Neut # (Auto) 3.93 (1.7-7.0) K/uL Lymph # (Auto) 0.60 L (0.90-2.90) K/uL Ramsey # (Auto) 0.90 (0.00-0.90) K/UL Eos # (Auto) 0.03 (0.00-0.50) K/uL Baso # (Auto) 0.02 (0.00-0.30) K/uL Abs Immat Gran (auto) 0.01 (0.00-0.30) K/uL Imm/Tot Granulo (auto) 0.2 % D-Dimer Quant (PE/DVT) 0.78 H (0.00-0.50) ug/ml VBG pH 7.360 (7.32-7.43) VBG pCO2 56 H (40-50) mmHG VBG pO2 42.7 (25-47) mmHG VBG HCO3 32 H (21-28) mmol/L Sodium 137 (135-149) mmol/L Potassium 5.1 (3.6-5.1) mmol/L Chloride 100 (96-114) mmol/L Carbon Dioxide 29 (20-32) mmol/L BUN 30 (7-30) mg/dL Creatinine 0.9 (0.5-1.5) mg/dL Estimated Creat Clear 90.42 Estimated GFR 95 ml/min Glucose 102 (60-115) mg/dL Hemoglobin A1c 5.86 H (0-5.6) % Lactate 1.4 (0.5-1.9) mmol/L Calcium 8.6 (8.4-10.6) mg/dL Lactate Dehydrogenase 212 (120-246) U/L Troponin I < 0.01 L (0.01-0.04) ng/mL C-Reactive Protein Cancelled 5.9 H Procalcitonin 0.10 (<0.50) ng/mL Urine Color (Yellow) Urine Appearance (Clear) Urine pH (5.0-8.5) Ur Specific [place] (1.000-1.030) Urine Protein (Negative) Urine Glucose (UA) (Negative) Urine Ketones (Negative) Urine Blood (Negative) Urine Nitrite (Negative) Urine Bilirubin (Negative) Urine Urobilinogen (0.2-1.0) Ur Leukocyte Esterase (Negative) Urine RBC (0-2) Urine WBC (0-5) Ur Squamous Epith Cells (None-Few) Urine Bacteria (None) SARS-CoV-2 (PCR) POSITIVE SARS-CoV-2 A (Negative) Influenza Type A (PCR) Negative PCR FLU A (Negative) Influenza Type B (PCR) Negative PCR FLU B (Negative) RSV (PCR) Negative PCR RSV (Negative) Lab Acknowledgement Test Added 11/25/22 11/25/22 11/25/22 Range/Units 19:50 20:28 21:59 WBC (4.50-11.00) K/uL RBC (4.30-5.90) m/uL Hgb (13.5-17.5) gm/dL Hct (37.0-53.0) % MCV (80-100) fL MCH (26-34) pg MCHC (32-36) gm/dL RDW Coeff of Asael (11.5-15.5) % Plt Count (140-440) K/uL Neut % (Auto) (42.0-72.0) % Lymph % (Auto) (20-44) % Ramsey % (Auto) (0.0-11.0) % Eos % (Auto) (0.0-7.0) % Baso % (Auto) (0.0-3.0) % Neut # (Auto) (1.7-7.0) K/uL Lymph # (Auto) (0.90-2.90) K/uL Ramsey # (Auto) (0.00-0.90) K/UL Eos # (Auto) (0.00-0.50) K/uL Baso # (Auto) (0.00-0.30) K/uL Abs Immat Gran (auto) (0.00-0.30) K/uL Imm/Tot Granulo (auto) % D-Dimer Quant (PE/DVT) (0.00-0.50) ug/ml VBG pH (7.32-7.43) VBG pCO2 (40-50) mmHG VBG pO2 (25-47) mmHG VBG HCO3 (21-28) mmol/L Sodium (135-149) mmol/L Potassium (3.6-5.1) mmol/L Chloride (96-114) mmol/L Carbon Dioxide (20-32) mmol/L BUN (7-30) mg/dL Creatinine (0.5-1.5) mg/dL Estimated Creat Clear Estimated GFR ml/min Glucose (60-115) mg/dL Hemoglobin A1c (0-5.6) % Lactate (0.5-1.9) mmol/L Calcium (8.4-10.6) mg/dL Lactate Dehydrogenase (120-246) U/L Troponin I (0.01-0.04) ng/mL C-Reactive Protein Procalcitonin (<0.50) ng/mL Urine Color Yellow (Yellow) Urine Appearance Cloudy A (Clear) Urine pH 5.5 (5.0-8.5) Ur Specific [place] >= 1.030 (1.000-1.030) Urine Protein 1+ A (Negative) Urine Glucose (UA) Negative (Negative) Urine Ketones Negative (Negative) Urine Blood 2+ A (Negative) Urine Nitrite Positive A (Negative) Urine Bilirubin Negative (Negative) Urine Urobilinogen 1.0 (0.2-1.0) Ur Leukocyte Esterase Trace A (Negative) Urine RBC 5-10 A (0-2) Urine WBC 5-10 A (0-5) Ur Squamous Epith Cells Few (None-Few) Urine Bacteria Many A (None) SARS-CoV-2 (PCR) (Negative) Influenza Type A (PCR) (Negative) Influenza Type B (PCR) (Negative) RSV (PCR) (Negative) Lab Acknowledgement Test Added Test Added 11/25/22 Range/Units 22:03 WBC (4.50-11.00) K/uL RBC (4.30-5.90) m/uL Hgb (13.5-17.5) gm/dL Hct (37.0-53.0) % MCV (80-100) fL MCH (26-34) pg MCHC (32-36) gm/dL RDW Coeff of Asael (11.5-15.5) % Plt Count (140-440) K/uL Neut % (Auto) (42.0-72.0) % Lymph % (Auto) (20-44) % Ramsey % (Auto) (0.0-11.0) % Eos % (Auto) (0.0-7.0) % Baso % (Auto) (0.0-3.0) % Neut # (Auto) (1.7-7.0) K/uL Lymph # (Auto) (0.90-2.90) K/uL Ramsey # (Auto) (0.00-0.90) K/UL Eos # (Auto) (0.00-0.50) K/uL Baso # (Auto) (0.00-0.30) K/uL Abs Immat Gran (auto) (0.00-0.30) K/uL Imm/Tot Granulo (auto) % D-Dimer Quant (PE/DVT) (0.00-0.50) ug/ml VBG pH (7.32-7.43) VBG pCO2 (40-50) mmHG VBG pO2 (25-47) mmHG VBG HCO3 (21-28) mmol/L Sodium (135-149) mmol/L Potassium (3.6-5.1) mmol/L Chloride (96-114) mmol/L Carbon Dioxide (20-32) mmol/L BUN (7-30) mg/dL Creatinine (0.5-1.5) mg/dL Estimated Creat Clear Estimated GFR ml/min Glucose (60-115) mg/dL Hemoglobin A1c (0-5.6) % Lactate (0.5-1.9) mmol/L Calcium (8.4-10.6) mg/dL Lactate Dehydrogenase (120-246) U/L Troponin I (0.01-0.04) ng/mL C-Reactive Protein Procalcitonin (<0.50) ng/mL Urine Color (Yellow) Urine Appearance (Clear) Urine pH (5.0-8.5) Ur Specific [place] (1.000-1.030) Urine Protein (Negative) Urine Glucose (UA) (Negative) Urine Ketones (Negative) Urine Blood (Negative) Urine Nitrite (Negative) Urine Bilirubin (Negative) Urine Urobilinogen (0.2-1.0) Ur Leukocyte Esterase (Negative) Urine RBC (0-2) Urine WBC (0-5) Ur Squamous Epith Cells (None-Few) Urine Bacteria (None) SARS-CoV-2 (PCR) (Negative) Influenza Type A (PCR) (Negative) Influenza Type B (PCR) (Negative) RSV (PCR) (Negative) Lab Acknowledgement Test Added Imaging Data Chest x-ray: Attestation: I have reviewed the pertinent imaging results. Radiologist's impression: IMPRESSION: Platelike atelectasis within the right lung. ECG Data Attestation: I personally reviewed and interpreted this ECG as follows: Interpretation: Normal sinus rhythm with first-degree AV block. Rate 61 MA 224 QRS axis right bundle-branch block. Left anterior fascicular block. Left axis deviation. No pathologic Q-waves. ST segment/T wave: T-wave inversion V1, V2. No definite ST segment elevation or depression. QTc: 489 No old EKGs available for comparison. Discharge Plan Discharge Condition: Critical Oxygen: Yes Oxygen Delivery Method: intubated Urinary Catheter: Yes
[2022-11-25] MEDS: 0.9 % SODIUM CHLORIDE 1000 ml 1,000 ML IV (17:41)
[2022-11-25 17:42] LABS: HCO3 VBG 32 mmol/L (21-28); Lactate* 1.4 mmol/L (0.5-1.9); PCO2 VBG 56 mmHG (40-50); PO2 VBG 42.7 mmHG (25-47)
[2022-11-25 17:45] LABS: Basophils Absolute Auto 0.02 K/uL (0.00-0.30); Basophils Percent Auto 0.4 % (0.0-3.0); Eosinophils Absolute Auto 0.03 K/uL (0.00-0.50); Eosinophils Percent Auto 0.5 % (0.0-7.0); Hematocrit 37.5 % (37.0-53.0); Hemoglobin* 10.6 gm/dL (13.5-17.5); Immature Granulocytes Abs Auto 0.01 K/uL (0.00-0.30); Immature Granulocytes Pct Auto 0.2 %; Lymphocytes Percent Auto 11.2 % (20-44); Mean Corpuscular HGB Conc 28 gm/dL (32-36); Mean Corpuscular Hemoglobin 24 pg (26-34); Mean Corpuscular Volume 86 fL (80-100); Monocytes Percent Auto 16.9 % (0.0-11.0); Neutrophils Absolute Auto 3.93 K/uL (1.7-7.0); Neutrophils Percent Auto 70.8 % (42.0-72.0); Platelet Count* 182 K/uL (140-440); RDW Coefficient of Variation % 18.1 % (11.5-15.5); Red Blood Count 4.34 m/uL (4.30-5.90); White Blood Count* 5.55 K/uL (4.50-11.00)
[2022-11-25 17:51] LABS: Slide Review Reflex No
[2022-11-25 18:06] LABS: C Reactive Protein* 5.9 mg/dL (0.5-1.0)
[2022-11-25] MEDS: NYSTATIN CREAM 30 GM TOPICAL (18:14)
[2022-11-25 18:20] LABS: Troponin I* < 0.01 ng/mL (0.01-0.04)
[2022-11-25 18:22] LABS: PCR FLU A Negative PCR FLU A (Negative); PCR FLU B Negative PCR FLU B (Negative); PCR RSV Negative PCR RSV (Negative)
[2022-11-25 18:53] LABS: SARS PCR* POSITIVE SARS-CoV-2 (Negative)
[2022-11-25 19:53] LABS: Chloride* 100 mmol/L (96-114); Sodium* 137 mmol/L (135-149)
[2022-11-25 19:56] LABS: Blood Urea Nitrogen* 30 mg/dL (7-30); Carbon Dioxide* 29 mmol/L (20-32); Creatinine* 0.9 mg/dL (0.5-1.5); Est. Creatinine Clearance* 90.42; Estimated Glomerular Filt Rate 95 ml/min
[2022-11-25 19:57] LABS: Calcium* 8.6 mg/dL (8.4-10.6); Glucose* 102 mg/dL (60-115)
[2022-11-25 19:58] LABS: Appearance Urine Cloudy (Clear); Bilirubin Urine Negative (Negative); Blood Urine 2+ (Negative); Color Urine Yellow (Yellow); Glucose Urine Negative (Negative); Ketones Urine Negative (Negative); Leukocyte Esterase Urine Trace (Negative); Nitrite Urine Positive (Negative); Protein Urine 1+ (Negative); Specific Gravity Urine >= 1.030 (1.000-1.030); pH Urine 5.5 (5.0-8.5)
[2022-11-25 20:08] LABS: Bacteria Urine Many; Squamous Epithelial Cell Urine Few (None-Few)
[2022-11-25 20:12] LABS: Potassium* 5.1 mmol/L (3.6-5.1)
[2022-11-25] MEDS: dexAMETHasone 4 MG/ML VIAL 6 MG IV (20:20)
--- NOTE | 2022-11-25 21:11 | ED.NURSE ---
02 was needed to be increased to 4 l n/c due to sats in low 80s with him sleeping. Is arousable. had stopped by and she is aware that he will be admitted.
--- NOTE | 2022-11-25 21:56 | PM.IMHP1 ---
Hospitalist- H&P: HPI History of Present Illness Date Seen: 11/26/22 Chief complaint: Weekness Narrative: ADMISSION HISTORY AND PHYSICAL --> CRITICAL CARE/TRANSFER- HOSPITALIST I previously had been consulted about this patient for admission. He had presented with weakness and a cough. He told the emergency room physician that his grand kids had visited with a hold and both he and his has started to feel ill in the last 1-2 days. His past medical history is relevant for congestive heart failure, morbid obesity, type 2 diabetes, chronic lymphedema, untreated JOHNATHON. He was found to have COVID pneumonitis exacerbated cavazos of acute heart failure. I surveyed him in the ED from the rob and he was resting comfortably on 2 L nasal cannula oxygen. Discussed the case with the ER physician and agreed to admit. In the hours from admission to arrival on the floor he became more hypotensive and his oxygen needs did increase. Patient arrived on the floor at approximately 10:30 p.m.. It was obvious upon arrival to room 274 that this patient was in distress and decompensating. The RN called me to the bedside. I immediately noted him to be up tended following commands. In the last 30 minutes in prior transfer up to the ED his O2 requirement had increased to 4 L per nasal cannula and his sats were in the high 80s. His blood pressure was dropping. He was tachypneic. -my immediate impression was this patient was quickly decompensated and likely would need intubation and transfer to tertiary care ICU. -stat ABG, stat Lasix 80 mg IV push -start heated high-flow at 100%/40 L -get a 2nd line -placed a Ma -call ENGINEERING LECTURER and prepare for intubation -I appreciate Dr. Harris coming up from the ED to assist, [place] from anesthesia arrived within 30 minute -lab called back with a critical pH of 7.1, pCO2 95. -our team prepared to intubate and control his airway -[place] from anesthesia was able to secure an ET tube, 8.5, 26 cm at the lip -our RSI protocol included a propofol push and drip - we then noted mild to moderate hypotension and bradycardia. We pushed ketamine and vecuronium. We started a ketamine drip and DC our propofol. With persistent hypotension we started norepinephrine. He did get a 500 mL fluid bolus to help support his intravascular pressure. -I updated Dr. Spaulding at [place]. -EMS transferred by ground, leaving the floor at approx 12:20am. CODE STATUS: FULL CODE EMERGENCY CONTACT PLAN: , ALFONSO, . She was updated at 12:00 a.m. with recent events and need for transfer. I've updated the PFSH, medications and allergies in the [facility] tabs. INVESTIGATIONS: LABS/MICRO/ECG/IMAGING Blood pressure 94/53, 99/58, 104/58, 117/60 Pulse 50s and 60s Pulse ox 92% on 2 L Afebrile CBC reflects a hemoglobin of 10.6, WBC of 5.5 Platelet count 182 Blood gas shows a normal pH of 7.3, mild hypercapnia at 56 --> next pH was 7.1 with worsening hypercapnia. Normal electrolytes and renal function Normal lactate Normal troponin Mildly elevated CRP at 5.9 Urine is cloudy, positive nitrate, trace leukocyte esterase, 5-10 red blood cells Positive SARS-CoV-2 Chest x-ray one view portable IMPRESSION: Platelike atelectasis within the right lung. Urine culture and blood culture x 2 pending REVIEW OF SYSTEMS: 12-point ROS completed with patient and negative unless otherwise stated in HPI or below. PHYSICAL EXAM: CONSTITUTIONAL: obtunded; not following commands. not speaking coherently. VITAL SIGNS: see record. HEENT: Normocephalic, atraumatic. PERRL, EOMI, conjunctivae pink, no scleral icterus. Ears and nose externally normal. Pharynx normal. NECK: No JVD. No carotid bruit, no thyromegaly, no adenopathy. CHEST: b/l rhonchi; wet sounding. HEART: S1 and S2 normal. No harsh murmurs. chronic lymphedema and stasis dermatitis MUSCULOSKELETAL: No gross joint deformity or swelling. NEURO: obtunded. No asymmetric findings. SKIN: chronic lymphedema changes ADMIT TO MEDSURG: CCU DVT: Lovenox or eliquis once taking oral GI: IV PPI Time spent: Today I spent 2 hours with the patient, discussing the patient with ER staff, reviewing [facility] and [facility] notes/diagnostics, discussing the care plan with our care time that includes social work, PT/OT, pharmacy, RT, nursing home and documenting my impressions and plan in the medical record. Critical Care: 10:30pm-12:30am, 120 minutes [id number] Critical care first 30-74 minutes [id number] Critical care next full 30 mins: X2 The patient required my highest level preparedness to intervene emergently and I personally spent this critical care time directly and personally managing the patient. This critical care time included: Obtaining a history; Examining the patient; Pulse oximetry; Ordering and reviewing of studies; Arranging urgent treatment with development of a management plan; Evaluation of patients response to treatment; Frequent reassessment discussions with other providers. This critical care time was performed to assess and manage the high probability of imminent life-threatening deterioration that could result in multiorgan failure. It was exclusive of separate billable procedures and treating other patients and teaching time. Dr. Harris from ED and [place], ENGINEERING LECTURER assisted. [facility] Medical History (Updated 11/26/22 @ 00:22 by Radha Austin MD) Morbid obesity with BMI of 60.0-69.9, adult ?E66.01 - Morbid (severe) obesity due to excess calories (ICD-10) ?Z68.44 - Body mass index [BMI] 60.0-69.9, adult (ICD-10) Non-pressure ulcer of right lower extremity with fat layer exposed ?L97.912 - Non-pressure chronic ulcer of unspecified part of right lower leg with fat layer exposed (ICD-10) Social History Smoking Status: Never smoker Do you use any of these nicotine containing products: None Second hand tobacco smoke exposure: No How often do you have a drink containing alcohol: never How often do you have six or more drinks on one occasion: Never AUDIT-C Alcohol total score: 0 Non-prescribed substance use: denies use service: No Meds Home Medications and Allergies Home Medications Medication Instructions Recorded Confirmed Type acetic acid 0.25 % irrigation 1 irrig irrigation Q6H PRN 12/26/21 11/25/22 History solution amiodarone 200 mg tablet 200 mg PO DAILY 12/26/21 11/25/22 History apixaban 5 mg tablet (Eliquis) 5 mg PO BID 12/26/21 11/25/22 History carvedilol 12.5 mg tablet 12.5 mg PO BID 12/26/21 11/25/22 History metformin 500 mg tablet 1,000 mg PO BID 12/26/21 11/25/22 History pravastatin 20 mg tablet 20 mg PO NIGHTLY 12/26/21 11/25/22 History sacubitril 49 mg-valsartan 51 mg 1 tab PO BID 12/26/21 11/25/22 History tablet (Entresto) spironolactone 25 mg tablet 25 mg PO DAILY 12/26/21 11/25/22 History albuterol sulfate 90 mcg/actuation 2 puff inhalation Q4H PRN wheezing 11/25/22 11/25/22 History aerosol inhaler blood sugar diagnostic (Accu-Chek 11/25/22 11/25/22 History SmartView Test Strips) semaglutide 0.25 mg or 0.5 mg (2 0.25 mg subcut .weekly 11/25/22 11/25/22 History mg/3 mL) subcutaneous pen injector ([id number]) Allergies Allergy/AdvReac Type Severity Reaction Status Date / Time No Known Drug Allergies Allergy Verified 11/25/22 17:03 Exam Const: Vital Signs, click to edit/add: Vital Signs - 24 hr 11/25/22 16:57 11/25/22 17:25 11/25/22 17:25 Temperature 98.4 F Pulse Rate Respiratory Rate 18 20 Blood Pressure Blood Pressure [Ri ght Upper Arm] 139/83 Pulse Oximetry 84 L 84 L 92 Oxygen Delivery Me thod Room Air Room Air Nasal Cannula Oxygen Flow Rate 2 11/25/22 17:38 11/25/22 17:44 11/25/22 17:45 Temperature Pulse Rate 62 64 63 Respiratory Rate 24 Blood Pressure 113/66 Blood Pressure [Ri ght Upper Arm] Pulse Oximetry 93 93 92 Oxygen Delivery Me thod Nasal Cannula Oxygen Flow Rate 2 11/25/22 18:00 11/25/22 18:01 11/25/22 18:15 Temperature Pulse Rate 66 62 64 Respiratory Rate 26 H Blood Pressure 111/67 Blood Pressure [Ri ght Upper Arm] Pulse Oximetry 91 93 93 Oxygen Delivery Me thod Nasal Cannula Nasal Cannula Oxygen Flow Rate 2 2 11/25/22 18:30 11/25/22 18:32 11/25/22 18:45 Temperature Pulse Rate 63 63 72 Respiratory Rate Blood Pressure 116/67 Blood Pressure [Ri ght Upper Arm] Pulse Oximetry 92 91 91 Oxygen Delivery Me thod Oxygen Flow Rate 11/25/22 19:00 11/25/22 19:02 08/17/23 19:15 Temperature Pulse Rate 65 67 62 Respiratory Rate Blood Pressure 121/71 Blood Pressure [Ri ght Upper Arm] Pulse Oximetry 90 91 90 Oxygen Delivery Me thod Oxygen Flow Rate 11/25/22 19:30 11/25/22 19:33 11/25/22 19:45 Temperature Pulse Rate 68 75 69 Respiratory Rate Blood Pressure 117/60 Blood Pressure [Ri ght Upper Arm] Pulse Oximetry 89 91 87 L Oxygen Delivery Me thod Oxygen Flow Rate 11/25/22 20:00 11/25/22 20:01 11/25/22 20:15 Temperature Pulse Rate 64 66 63 Respiratory Rate Blood Pressure 104/58 L Blood Pressure [Ri ght Upper Arm] Pulse Oximetry 87 L 88 78 L Oxygen Delivery Me thod Oxygen Flow Rate 11/25/22 20:30 11/25/22 20:32 11/25/22 20:45 Temperature Pulse Rate 61 61 59 L Respiratory Rate Blood Pressure 99/58 L Blood Pressure [Ri ght Upper Arm] Pulse Oximetry 86 L 88 93 Oxygen Delivery Me thod Oxygen Flow Rate 2 3 4 11/25/22 21:00 11/25/22 21:01 Temperature Pulse Rate 62 65 Respiratory Rate Blood Pressure 94/53 L Blood Pressure [Ri ght Upper Arm] Pulse Oximetry 92 92 Oxygen Delivery Me thod Oxygen Flow Rate 4 4 Hospitalist - H&P: Result Labs Labs: Short CBC 11/25/22 Range/Units 17:35 WBC 5.55 (4.50-11.00) K/uL Hgb 10.6 L (13.5-17.5) gm/dL Hct 37.5 (37.0-53.0) % Plt Count 182 (140-440) K/uL BMP 11/25/22 17:35 Sodium 137 Potassium 5.1 Chloride 100 Carbon Dioxide 29 BUN 30 Creatinine 0.9 Glucose 102 Calcium 8.6 Cardiac Enzymes 11/25/22 Range/Units 17:35 Troponin I < 0.01 L (0.01-0.04) ng/mL Urine 11/25/22 Range/Units 19:50 Urine Color Yellow (Yellow) Urine Appearance Cloudy A (Clear) Urine pH 5.5 (5.0-8.5) Ur Specific [place] >= 1.030 (1.000-1.030) Urine Protein 1+ A (Negative) Urine Glucose (UA) Negative (Negative) Assessment and Plan Assessment and plan (1) Acute respiratory failure due to COVID-19: Problem comment: -covid + -covid vaccinated -superimposed heart failure -RSI indicated for hypercapnia and not protecting airway -transferred by ground to Dr. Jasson Bender accepting Status: Acute (2) Acute respiratory failure with hypoxia and hypercapnia: Problem comment: -as above Status: Acute (3) Morbid obesity with BMI of 60.0-69.9, adult: Status: Acute (4) Type 2 diabetes mellitus: Status: Acute (5) Acute heart failure: Status: Acute
[2022-11-25 22:07] LABS: D Dimer Quantitative* 0.78 ug/ml (0.00-0.50)
[2022-11-25 22:34] LABS: Lactate Dehydrogenase* 212 U/L (120-246)
[2022-11-25 22:37] LABS: Hemoglobin A1C* 5.86 % (0-5.6)
[2022-11-25] MEDS: FUROSEMIDE 10 MG/ML inj 80 MG IVP (23:00)
[2022-11-25 23:08] LABS: HCO3 ABG 34 mmol/L (21-28); PO2 ABG 77.5 mmHG (80-105)
[2022-11-25 23:09] LABS: Base Excess ABG 2.1 mmol/L (-3.0-3.0); TCO2 ABG 32 mmol/l (21-30)
[2022-11-25 23:10] LABS: Carboxyhemoglobin* 1.6 % (0.0-5.0); Oxygen Saturation ABG 90 % (92-100); pH ABG 7.15 (7.35-7.45)
[2022-11-25 23:11] LABS: ABG PCO2 96 mmHG (35-45)
[2022-11-25 23:19] LABS: Chloride* 100 mmol/L (96-114); Potassium* 5.3 mmol/L (3.6-5.1); Sodium* 139 mmol/L (135-149)
[2022-11-25 23:22] LABS: Blood Urea Nitrogen* 28 mg/dL (7-30); Carbon Dioxide* 33 mmol/L (20-32); Est. Creatinine Clearance* 90.42; Estimated Glomerular Filt Rate 84 ml/min; Glucose* 143 mg/dL (60-115)
[2022-11-25 23:23] LABS: Calcium* 8.4 mg/dL (8.4-10.6)
[2022-11-25] MEDS: SUCCINYLCHOLINE 20 MG/ML INJ 200 MG IVP (23:23)
[2022-11-25] MEDS: PROPOFOL 10 MG/ML INJ 200 MG IVP (23:23)
--- NOTE | 2022-11-25 23:33 | CRLHL7_ITS ---
For Patients: As a result of the Century Cures Act, medical imaging exams and procedure reports are released immediately into your electronic medical record. You may view this report before your referring provider. If you have questions, please contact your health care provider. INDICATION: Intubation. COMPARISON: 5:33 p.m. 11/25/2022 chest radiograph. FINDINGS/IMPRESSION: Supine portable AP chest radiograph. Interval placement of an endotracheal tube with its tip 3 centimeters above the elli. A nasogastric tube has also been placed, extending at least to the level of the distal esophagus with the more distal portions of the tube obscured by overlying density. Lungs show shallow inspiration, slight increase in right upper lobe atelectasis, and unchanged pulmonary vascular congestion. Cardiac contour appears stable. Dictated by Hermelindo Iglesias MD @ 11/26/2022 1:01:31 AM Dictated by: Hermelindo Iglesias MD @ 11/26/2022 01:01:55 (Electronically Signed)
[2022-11-25] MEDS: propofoL 1,000 MG/100 ML ML 144.24 MG IVPB (23:34)
[2022-11-25] MEDS: KETAMINE HCL 100 MG/ML inj 200 MG IV (23:41)
[2022-11-25] MEDS: VECURONIUM 1 MG/ML INJ 10 MG IVP (23:43)
--- NOTE | 2022-11-26 00:09 | PM.ANBPRC ---
[facility] Medical History (Updated 11/25/22 @ 21:58 by Radha Austin MD) Morbid obesity with BMI of 60.0-69.9, adult ?E66.01 - Morbid (severe) obesity due to excess calories (ICD-10) ?Z68.44 - Body mass index [BMI] 60.0-69.9, adult (ICD-10) Non-pressure ulcer of right lower extremity with fat layer exposed ?L97.912 - Non-pressure chronic ulcer of unspecified part of right lower leg with fat layer exposed (ICD-10) Social History Smoking Status: Never smoker Do you use any of these nicotine containing products: None Second hand tobacco smoke exposure: No How often do you have a drink containing alcohol: never How often do you have six or more drinks on one occasion: Never AUDIT-C Alcohol total score: 0 Non-prescribed substance use: denies use service: No Meds Home Medications and Allergies Home Medications Medication Instructions Recorded Confirmed Type acetic acid 0.25 % irrigation 1 irrig irrigation Q6H PRN 12/26/21 11/25/22 History solution amiodarone 200 mg tablet 200 mg PO DAILY 12/26/21 11/25/22 History apixaban 5 mg tablet (Eliquis) 5 mg PO BID 12/26/21 11/25/22 History carvedilol 12.5 mg tablet 12.5 mg PO BID 12/26/21 11/25/22 History metformin 500 mg tablet 1,000 mg PO BID 12/26/21 11/25/22 History pravastatin 20 mg tablet 20 mg PO NIGHTLY 12/26/21 11/25/22 History sacubitril 49 mg-valsartan 51 mg 1 tab PO BID 12/26/21 11/25/22 History tablet (Entresto) spironolactone 25 mg tablet 25 mg PO DAILY 12/26/21 11/25/22 History albuterol sulfate 90 mcg/actuation 2 puff inhalation Q4H PRN wheezing 11/25/22 11/25/22 History aerosol inhaler blood sugar diagnostic (Accu-Chek 11/25/22 11/25/22 History SmartView Test Strips) semaglutide 0.25 mg or 0.5 mg (2 0.25 mg subcut .weekly 11/25/22 11/25/22 History mg/3 mL) subcutaneous pen injector (Ozempic) Allergies Allergy/AdvReac Type Severity Reaction Status Date / Time No Known Drug Allergies Allergy Verified 11/25/22 17:03 Results Labs Labs: Laboratory Results - last 24 hr 11/25/22 11/25/22 11/25/22 17:35 17:35 19:39 WBC 5.55 RBC 4.34 Hgb 10.6 L Hct 37.5 MCV 86 MCH 24 L MCHC 28 L RDW Coeff of Asael 18.1 H Plt Count 182 Neut % (Auto) 70.8 Lymph % (Auto) 11.2 L Adams % (Auto) 16.9 H Eos % (Auto) 0.5 Baso % (Auto) 0.4 Neut # (Auto) 3.93 Lymph # (Auto) 0.60 L Adams # (Auto) 0.90 Eos # (Auto) 0.03 Baso # (Auto) 0.02 Abs Immat Gran (auto) 0.01 Imm/Tot Granulo (auto) 0.2 D-Dimer Quant (PE/DVT) 0.78 H ABG pH ABG pCO2 ABG pO2 ABG HCO3 ABG Total CO2 ABG O2 Saturation ABG Base Excess VBG pH 7.360 VBG pCO2 56 H VBG pO2 42.7 VBG HCO3 32 H Carboxyhemoglobin Sodium 137 Potassium 5.1 Chloride 100 Carbon Dioxide 29 BUN 30 Creatinine 0.9 Estimated Creat Clear 90.42 Estimated GFR 95 Glucose 102 Hemoglobin A1c 5.86 H Lactate 1.4 Calcium 8.6 Lactate Dehydrogenase 212 Troponin I < 0.01 L C-Reactive Protein Cancelled 5.9 H Procalcitonin 0.10 Urine Color Urine Appearance Urine pH Ur Specific [place] Urine Protein Urine Glucose (UA) Urine Ketones Urine Blood Urine Nitrite Urine Bilirubin Urine Urobilinogen Ur Leukocyte Esterase Urine RBC Urine WBC Ur Squamous Epith Cells Urine Bacteria SARS-CoV-2 (PCR) POSITIVE SARS-CoV-2 A Influenza Type A (PCR) Negative PCR FLU A Influenza Type B (PCR) Negative PCR FLU B RSV (PCR) Negative PCR RSV Lab Acknowledgement Test Added 11/25/22 11/25/22 11/25/22 19:50 20:28 21:59 WBC RBC Hgb Hct MCV MCH MCHC RDW Coeff of Asael Plt Count Neut % (Auto) Lymph % (Auto) Adams % (Auto) Eos % (Auto) Baso % (Auto) Neut # (Auto) Lymph # (Auto) Adams # (Auto) Eos # (Auto) Baso # (Auto) Abs Immat Gran (auto) Imm/Tot Granulo (auto) D-Dimer Quant (PE/DVT) ABG pH ABG pCO2 ABG pO2 ABG HCO3 ABG Total CO2 ABG O2 Saturation ABG Base Excess VBG pH VBG pCO2 VBG pO2 VBG HCO3 Carboxyhemoglobin Sodium Potassium Chloride Carbon Dioxide BUN Creatinine Estimated Creat Clear Estimated GFR Glucose Hemoglobin A1c Lactate Calcium Lactate Dehydrogenase Troponin I C-Reactive Protein Procalcitonin Urine Color Yellow Urine Appearance Cloudy A Urine pH 5.5 Ur Specific [place] >= 1.030 Urine Protein 1+ A Urine Glucose (UA) Negative Urine Ketones Negative Urine Blood 2+ A Urine Nitrite Positive A Urine Bilirubin Negative Urine Urobilinogen 1.0 Ur Leukocyte Esterase Trace A Urine RBC 5-10 A Urine WBC 5-10 A Ur Squamous Epith Cells Few Urine Bacteria Many A SARS-CoV-2 (PCR) Influenza Type A (PCR) Influenza Type B (PCR) RSV (PCR) Lab Acknowledgement Test Added Test Added 11/25/22 11/25/22 11/25/22 22:03 22:47 22:50 WBC RBC Hgb Hct MCV MCH MCHC RDW Coeff of Asael Plt Count Neut % (Auto) Lymph % (Auto) Adams % (Auto) Eos % (Auto) Baso % (Auto) Neut # (Auto) Lymph # (Auto) Adams # (Auto) Eos # (Auto) Baso # (Auto) Abs Immat Gran (auto) Imm/Tot Granulo (auto) D-Dimer Quant (PE/DVT) ABG pH 7.15 L* ABG pCO2 96 H* ABG pO2 77.5 L ABG HCO3 34 H ABG Total CO2 32 H ABG O2 Saturation 90 L ABG Base Excess 2.1 VBG pH VBG pCO2 VBG pO2 VBG HCO3 Carboxyhemoglobin 1.6 Sodium 139 Potassium 5.3 H Chloride 100 Carbon Dioxide 33 H BUN 28 Creatinine 1.0 Estimated Creat Clear 90.42 Estimated GFR 84 Glucose 143 H Hemoglobin A1c Lactate Calcium 8.4 Lactate Dehydrogenase Troponin I C-Reactive Protein Procalcitonin Urine Color Urine Appearance Urine pH Ur Specific [place] Urine Protein Urine Glucose (UA) Urine Ketones Urine Blood Urine Nitrite Urine Bilirubin Urine Urobilinogen Ur Leukocyte Esterase Urine RBC Urine WBC Ur Squamous Epith Cells Urine Bacteria SARS-CoV-2 (PCR) Influenza Type A (PCR) Influenza Type B (PCR) RSV (PCR) Lab Acknowledgement Test Added Vital Signs Vital Signs: Last Vital Signs Temp 98.4 F 11/25/22 16:57 Pulse 66 11/25/22 22:15 Resp 26 H 11/25/22 18:01 BP 102/64 11/25/22 22:01 Pulse Ox 89 11/25/22 22:15 O2 Del Method Nasal Cannula 11/25/22 22:15 O2 Flow Rate 4 11/25/22 22:15 Weight: 240.404 kg Height: 193.04 cm Anesthesia Procedures Airway Patient Location: MedSurg/CCU Urgency: emergent Date: 11/26/22 Time: 23:45 UTILITY BILL COLLECTION CLERK: Darien Piper Preferred by: LEODAN Preanesthetic Checklist: IV checked and monitors and equipment checked Difficult Airway: Yes Indications for Airway Management: airway protection and cardiovascular instability Spontaneous Ventilation: present Sedation Level: moderate (conscious sedation) Preoxygenated: Yes Mask Difficulty Assessment: 0 - not attempted Final Airway Details: 8.0 oral endotracheal tube times 1 with glidescope 3 with ease. Secured. Positive bilateral breath sounds. Chest x-ray to confirm placement. To Ventilator. EMS here for transport. Sedation and paralysis per nursing documentation. Dr. Austin informed and Dr. Asutin resumed care Final Airway Type: endotracheal airway Number of Attempts at Approach: 1 Dentition Unchanged: Yes
--- NOTE | 2022-11-26 00:15 | W.ANESCHARGE ---
Anesthesia Charges Start Date/Time Anesthesia Start Date: 11/26/22 Anesthesia Start Time: 23:35 Stop Date/Time Anesthesia Stop Date: 11/26/22 Anesthesia Stop Time: 23:55 Summary Emergency: CODING QUALITY COORDINATOR
--- NOTE | 2022-11-26 00:25 | PM.DS1 ---
DS: Providers Provider Date Seen: 11/26/22 Date of admission: 11/25/22 22:21 Primary care physician: Pushpa Meier Admitting Clinician: Radha Austin MD [facility] Attending Physician on discharge: Radha Austin MD [facility] Date of Discharge: 11/26/22 DS: Diagnosis Discharge Diagnosis (1) Acute respiratory failure due to COVID-19: Status: Acute Problem details: -covid + -covid vaccinated -superimposed heart failure -RSI indicated for hypercapnia and not protecting airway -transferred by ground to Dr. Jasson Bender accepting (2) Acute respiratory failure with hypoxia and hypercapnia: Status: Acute Problem details: -as above (3) Acute heart failure: Status: Acute DS: Summary Hospital Course Hospital Course: Admission history and physical, transfer summary all together. Patient was on the floor for 2 hours. Transferred immediately secondary to decompensation, respiratory arrest to [facility] ICU. Status at Discharge Functional status at discharge: bed bound Overall status at discharge: patient is not back to baseline Time Spent with Patient Time attestation: Total time spent providing and/or coordinating discharge services: Time spent: Greater than 30 minutes Exam Const: Vital Signs, click to edit/add: Vital Signs - 24 hr 11/25/22 16:57 11/25/22 17:25 11/25/22 17:25 Temperature 98.4 F Pulse Rate Respiratory Rate 18 20 Blood Pressure Blood Pressure [Ri ght Upper Arm] 139/83 Pulse Oximetry 84 L 84 L 92 Oxygen Delivery Me thod Room Air Room Air Nasal Cannula Oxygen Flow Rate 2 11/25/22 17:38 11/25/22 17:44 11/25/22 17:45 Temperature Pulse Rate 62 64 63 Respiratory Rate 24 Blood Pressure 113/66 Blood Pressure [Ri ght Upper Arm] Pulse Oximetry 93 93 92 Oxygen Delivery Me thod Nasal Cannula Oxygen Flow Rate 2 11/25/22 18:00 11/25/22 18:01 11/25/22 18:15 Temperature Pulse Rate 66 62 64 Respiratory Rate 26 H Blood Pressure 111/67 Blood Pressure [Ri ght Upper Arm] Pulse Oximetry 91 93 93 Oxygen Delivery Me thod Nasal Cannula Nasal Cannula Oxygen Flow Rate 2 2 11/25/22 18:30 11/25/22 18:32 11/25/22 18:45 Temperature Pulse Rate 63 63 72 Respiratory Rate Blood Pressure 116/67 Blood Pressure [Ri ght Upper Arm] Pulse Oximetry 92 91 91 Oxygen Delivery Me thod Oxygen Flow Rate 11/25/22 19:00 11/25/22 19:02 11/25/22 19:15 Temperature Pulse Rate 65 67 62 Respiratory Rate Blood Pressure 121/71 Blood Pressure [Ri ght Upper Arm] Pulse Oximetry 90 91 90 Oxygen Delivery Me thod Oxygen Flow Rate 11/25/22 19:30 11/25/22 19:33 11/25/22 19:45 Temperature Pulse Rate 68 75 69 Respiratory Rate Blood Pressure 117/60 Blood Pressure [Ri ght Upper Arm] Pulse Oximetry 89 91 87 L Oxygen Delivery Me thod Oxygen Flow Rate 11/25/22 20:00 11/25/22 20:01 11/25/22 20:15 Temperature Pulse Rate 64 66 63 Respiratory Rate Blood Pressure 104/58 L Blood Pressure [Ri ght Upper Arm] Pulse Oximetry 87 L 88 78 L Oxygen Delivery Me thod Oxygen Flow Rate 11/25/22 20:30 11/25/22 20:32 11/25/22 20:45 Temperature Pulse Rate 61 61 59 L Respiratory Rate Blood Pressure 99/58 L Blood Pressure [Ri ght Upper Arm] Pulse Oximetry 86 L 88 93 Oxygen Delivery Me thod Oxygen Flow Rate 2 3 4 11/25/22 21:00 11/25/22 21:01 11/25/22 21:02 Temperature Pulse Rate 62 65 62 Respiratory Rate Blood Pressure 94/53 L Blood Pressure [Ri ght Upper Arm] Pulse Oximetry 92 92 92 Oxygen Delivery Me thod Oxygen Flow Rate 4 4 11/25/22 21:15 11/25/22 21:30 11/25/22 21:32 Temperature Pulse Rate 62 60 64 Respiratory Rate Blood Pressure 95/63 Blood Pressure [Ri ght Upper Arm] Pulse Oximetry 90 90 90 Oxygen Delivery Me thod Oxygen Flow Rate 11/25/22 21:45 11/25/22 22:00 11/25/22 22:01 Temperature Pulse Rate 64 66 65 Respiratory Rate Blood Pressure 102/64 Blood Pressure [Ri ght Upper Arm] Pulse Oximetry 90 90 90 Oxygen Delivery Me thod Nasal Cannula Oxygen Flow Rate 4 11/25/22 22:15 Temperature Pulse Rate 66 Respiratory Rate Blood Pressure Blood Pressure [Ri ght Upper Arm] Pulse Oximetry 89 Oxygen Delivery Me thod Nasal Cannula Oxygen Flow Rate 4 DS: Data Data Completed and Pending Labs on day of discharge: Labs from last 24 hours 11/25/22 11/25/22 11/25/22 22:50 22:47 22:03 WBC RBC Hgb Hct MCV MCH MCHC RDW Coeff of Asael Plt Count Neut % (Auto) Lymph % (Auto) [place] % (Auto) Eos % (Auto) Baso % (Auto) Neut # (Auto) Lymph # (Auto) [place] # (Auto) Eos # (Auto) Baso # (Auto) Abs Immat Gran (auto) Imm/Tot Granulo (auto) D-Dimer Quant (PE/DVT) ABG pH 7.15 L* ABG pCO2 96 H* ABG pO2 77.5 L ABG HCO3 34 H ABG Total CO2 32 H ABG O2 Saturation 90 L ABG Base Excess 2.1 VBG pH VBG pCO2 VBG pO2 VBG HCO3 Carboxyhemoglobin 1.6 Sodium 139 Potassium 5.3 H Chloride 100 Carbon Dioxide 33 H BUN 28 Creatinine 1.0 Estimated Creat Clear 90.42 Estimated GFR 84 Glucose 143 H Hemoglobin A1c Lactate Calcium 8.4 Lactate Dehydrogenase Troponin I C-Reactive Protein Procalcitonin Urine Color Urine Appearance Urine pH Ur Specific [place] Urine Protein Urine Glucose (UA) Urine Ketones Urine Blood Urine Nitrite Urine Bilirubin Urine Urobilinogen Ur Leukocyte Esterase Urine RBC Urine WBC Ur Squamous Epith Cells Urine Bacteria SARS-CoV-2 (PCR) Influenza Type A (PCR) Influenza Type B (PCR) RSV (PCR) Lab Acknowledgement Test Added 11/25/22 11/25/22 11/25/22 21:59 20:28 19:50 WBC RBC Hgb Hct MCV MCH MCHC RDW Coeff of Asael Plt Count Neut % (Auto) Lymph % (Auto) [place] % (Auto) Eos % (Auto) Baso % (Auto) Neut # (Auto) Lymph # (Auto) [place] # (Auto) Eos # (Auto) Baso # (Auto) Abs Immat Gran (auto) Imm/Tot Granulo (auto) D-Dimer Quant (PE/DVT) ABG pH ABG pCO2 ABG pO2 ABG HCO3 ABG Total CO2 ABG O2 Saturation ABG Base Excess VBG pH VBG pCO2 VBG pO2 VBG HCO3 Carboxyhemoglobin Sodium Potassium Chloride Carbon Dioxide BUN Creatinine Estimated Creat Clear Estimated GFR Glucose Hemoglobin A1c Lactate Calcium Lactate Dehydrogenase Troponin I C-Reactive Protein Procalcitonin Urine Color Yellow Urine Appearance Cloudy A Urine pH 5.5 Ur Specific [place] >= 1.030 Urine Protein 1+ A Urine Glucose (UA) Negative Urine Ketones Negative Urine Blood 2+ A Urine Nitrite Positive A Urine Bilirubin Negative Urine Urobilinogen 1.0 Ur Leukocyte Esterase Trace A Urine RBC 5-10 A Urine WBC 5-10 A Ur Squamous Epith Cells Few Urine Bacteria Many A SARS-CoV-2 (PCR) Influenza Type A (PCR) Influenza Type B (PCR) RSV (PCR) Lab Acknowledgement Test Added Test Added 11/25/22 11/25/22 11/25/22 19:39 17:35 17:35 WBC 5.55 RBC 4.34 Hgb 10.6 L Hct 37.5 MCV 86 MCH 24 L MCHC 28 L RDW Coeff of Asael 18.1 H Plt Count 182 Neut % (Auto) 70.8 Lymph % (Auto) 11.2 L [place] % (Auto) 16.9 H Eos % (Auto) 0.5 Baso % (Auto) 0.4 Neut # (Auto) 3.93 Lymph # (Auto) 0.60 L [place] # (Auto) 0.90 Eos # (Auto) 0.03 Baso # (Auto) 0.02 Abs Immat Gran (auto) 0.01 Imm/Tot Granulo (auto) 0.2 D-Dimer Quant (PE/DVT) 0.78 H ABG pH ABG pCO2 ABG pO2 ABG HCO3 ABG Total CO2 ABG O2 Saturation ABG Base Excess VBG pH 7.360 VBG pCO2 56 H VBG pO2 42.7 VBG HCO3 32 H Carboxyhemoglobin Sodium 137 Potassium 5.1 Chloride 100 Carbon Dioxide 29 BUN 30 Creatinine 0.9 Estimated Creat Clear 90.42 Estimated GFR 95 Glucose 102 Hemoglobin A1c 5.86 H Lactate 1.4 Calcium 8.6 Lactate Dehydrogenase 212 Troponin I < 0.01 L C-Reactive Protein 5.9 H Cancelled Procalcitonin 0.10 Urine Color Urine Appearance Urine pH Ur Specific [place] Urine Protein Urine Glucose (UA) Urine Ketones Urine Blood Urine Nitrite Urine Bilirubin Urine Urobilinogen Ur Leukocyte Esterase Urine RBC Urine WBC Ur Squamous Epith Cells Urine Bacteria SARS-CoV-2 (PCR) POSITIVE SARS-CoV-2 A Influenza Type A (PCR) Negative PCR FLU A Influenza Type B (PCR) Negative PCR FLU B RSV (PCR) Negative PCR RSV Lab Acknowledgement Test Added Preliminary micro results at discharge 11/25/22 Unknown Urine Culture - Preliminary Urine,Clean Catch Culture in Progress Discharge Plan Discharge Disposition: [facility] Date of Admission: 11/25/22 22:21 Attending Provider on Discharge: Radha Austin Primary Care Provider: Pushpa Meier Condition: Critical Oxygen: Yes Oxygen Delivery Method: intubated Urinary Catheter: Yes Drips/Lines: ketamine, norepinephrine Services not available here: ICU care
--- NOTE | 2022-11-26 02:25 | PC.NURSE ---
Addendum entered by Iram Aldridge RN 11/26/22 03:01: Pt transferred to [place] @0045 Original Note: ADMIT/DISCHARGE NOTE: Pt to [facility] @ [phone], not responding to questions, no meaningful conversation, responding only to tactile stimulus. Initially on 2L O2, immediately switched to hiflo 40L/100% with oxygen saturations in the low 90's. 80mg Lasix given, Ma placed per MD. MD in to see pt, RSI initiated, please refer to Critical Care Record for medications and interventions completed. Pt sent to [facility] via EMS, Report given to nurse caring for pt at [facility].
== END 2022-11-26 00:45 | disposition short-term general hospital (02) | DRG 177 ==
LOC: ED 18:02 → MEDSURG 11-26 00:24
PROVIDERS: Admitting Provider Family Medicine; Emergency Provider Emergency Medicine; PCP Internal Medicine; Visit Provider Family Medicine
DX: U07.1 COVID-19 (principal); I50.23 Acute on chronic systolic (congestive) heart failure; J96.02 Acute respiratory failure with hypercapnia; J96.01 Acute respiratory failure with hypoxia; J98.11 Atelectasis; Z68.44 Body mass index [BMI] 60.0-69.9, adult; I45.2 Bifascicular block; L97.929 Non-pressure chronic ulcer of unspecified part of left lower leg with unspecified severity; L97.919 Non-pressure chronic ulcer of unspecified part of right lower leg with unspecified severity; I48.91 Unspecified atrial fibrillation; Z79.01 Long term (current) use of anticoagulants; E78.00 Pure hypercholesterolemia, unspecified; E11.8 Type 2 diabetes mellitus with unspecified complications; Z79.85 Long-term (current) use of injectable non-insulin antidiabetic drugs; Z79.84 Long term (current) use of oral hypoglycemic drugs; L30.4 Erythema intertrigo; E66.01 Morbid (severe) obesity due to excess calories; G47.33 Obstructive sleep apnea (adult) (pediatric); R60.0 Localized edema; L28.0 Lichen simplex chronicus
CPT/HCPCS: 31500; 36415; 36600; 51701; 71045; 80048; 81001; 82803; 83036; 83605; 83615; 84145; 84484; 85025; 85379; 86140; 87040; 87086; 87186; 87631; 93005; 94761; 99140; 99284; 99285; A9270; J0330; J1100; J1940; J2704; J3490; J7030

== ENCOUNTER 2022-11-25 23:41 | Outpatient (CLI) | payer MEDICARE, BC, SELFPAY ==
--- NOTE | 2022-12-09 12:11 | W.ANESCHARGE ---
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
== END 2022-11-25 23:42 | disposition home or self-care (01) ==
LOC: AMB 12-06 03:36
PROVIDERS: PCP Internal Medicine; Visit Provider Emergency Medicine
DX: J96.90 Respiratory failure, unspecified, unspecified whether with hypoxia or hypercapnia (principal)
CPT/HCPCS: 31500; 99140; A0425; A0434

== ENCOUNTER 2022-12-20 09:37 | Outpatient (CLI) | payer MEDICARE, BC, SELFPAY | END 2022-12-20 09:38 | disposition home or self-care (01) | LOC: WOUND 09:38 | PROVIDERS: PCP Internal Medicine; Visit Provider Nurse Practitioner Family | DX: E11.622 Type 2 diabetes mellitus with other skin ulcer (principal); I89.0 Lymphedema, not elsewhere classified; L97.222 Non-pressure chronic ulcer of left calf with fat layer exposed; L97.812 Non-pressure chronic ulcer of other part of right lower leg with fat layer exposed; I87.2 Venous insufficiency (chronic) (peripheral); Z79.84 Long term (current) use of oral hypoglycemic drugs | CPT/HCPCS: 11042; 11045 ==

== ENCOUNTER 2022-12-27 09:51 | Outpatient (CLI) | payer MEDICARE, BC, SELFPAY | END 2022-12-27 09:52 | disposition home or self-care (01) | LOC: WOUND 09:51 | PROVIDERS: PCP Internal Medicine; Visit Provider Nurse Practitioner Family | DX: E11.622 Type 2 diabetes mellitus with other skin ulcer (principal); I89.0 Lymphedema, not elsewhere classified; L97.222 Non-pressure chronic ulcer of left calf with fat layer exposed; L97.812 Non-pressure chronic ulcer of other part of right lower leg with fat layer exposed; Z79.84 Long term (current) use of oral hypoglycemic drugs | CPT/HCPCS: 11042; 11045 ==

== ENCOUNTER 2023-01-03 10:06 | Outpatient (CLI) | payer MEDICARE, BC, SELFPAY | END 2023-01-03 10:07 | disposition home or self-care (01) | LOC: WOUND 10:06 | PROVIDERS: PCP Internal Medicine; Visit Provider Nurse Practitioner Family | DX: E11.622 Type 2 diabetes mellitus with other skin ulcer (principal); I89.0 Lymphedema, not elsewhere classified; L97.222 Non-pressure chronic ulcer of left calf with fat layer exposed; L97.812 Non-pressure chronic ulcer of other part of right lower leg with fat layer exposed; Z79.84 Long term (current) use of oral hypoglycemic drugs; Z79.85 Long-term (current) use of injectable non-insulin antidiabetic drugs | CPT/HCPCS: 11042; 11045 ==

== ENCOUNTER 2023-01-10 08:53 | Outpatient (CLI) | payer MEDICARE, BC, SELFPAY | END 2023-01-10 08:54 | disposition home or self-care (01) | LOC: WOUND 08:54 | PROVIDERS: PCP Internal Medicine; Visit Provider Nurse Practitioner Family | DX: E11.622 Type 2 diabetes mellitus with other skin ulcer (principal); L97.222 Non-pressure chronic ulcer of left calf with fat layer exposed; L97.812 Non-pressure chronic ulcer of other part of right lower leg with fat layer exposed; Z79.84 Long term (current) use of oral hypoglycemic drugs | CPT/HCPCS: 11042; 11045 ==

== ENCOUNTER 2023-01-17 09:47 | Outpatient (CLI) | payer MEDICARE, BC, SELFPAY | END 2023-01-17 09:48 | disposition home or self-care (01) | LOC: WOUND 09:47 | PROVIDERS: PCP Internal Medicine; Visit Provider Nurse Practitioner Family | DX: E11.622 Type 2 diabetes mellitus with other skin ulcer (principal); L97.222 Non-pressure chronic ulcer of left calf with fat layer exposed; L97.212 Non-pressure chronic ulcer of right calf with fat layer exposed; I89.0 Lymphedema, not elsewhere classified; Z79.84 Long term (current) use of oral hypoglycemic drugs | CPT/HCPCS: 11042; 11045; 97602 ==

== ENCOUNTER 2023-01-24 09:44 | Outpatient (CLI) | payer MEDICARE, BC, SELFPAY | END 2023-01-24 09:45 | disposition home or self-care (01) | LOC: WOUND 09:44 | PROVIDERS: PCP Internal Medicine; Visit Provider Nurse Practitioner Family | DX: E11.622 Type 2 diabetes mellitus with other skin ulcer (principal); I89.0 Lymphedema, not elsewhere classified; L97.222 Non-pressure chronic ulcer of left calf with fat layer exposed; L97.818 Non-pressure chronic ulcer of other part of right lower leg with other specified severity; Z79.84 Long term (current) use of oral hypoglycemic drugs | CPT/HCPCS: 11042; 11045 ==

== ENCOUNTER 2023-01-31 09:34 | Outpatient (CLI) | payer MEDICARE, BC, SELFPAY | END 2023-01-31 09:35 | disposition home or self-care (01) | LOC: WOUND 09:34 | PROVIDERS: PCP Internal Medicine; Visit Provider Nurse Practitioner Family | DX: E11.622 Type 2 diabetes mellitus with other skin ulcer (principal); I89.0 Lymphedema, not elsewhere classified; L97.222 Non-pressure chronic ulcer of left calf with fat layer exposed; L97.812 Non-pressure chronic ulcer of other part of right lower leg with fat layer exposed; Z79.84 Long term (current) use of oral hypoglycemic drugs | CPT/HCPCS: 11042; 11045; 97602 ==

== ENCOUNTER 2023-02-07 09:54 | Outpatient (CLI) | payer MEDICARE, BC, SELFPAY | END 2023-02-07 09:55 | disposition home or self-care (01) | LOC: WOUND 09:54 | PROVIDERS: PCP Internal Medicine; Visit Provider Nurse Practitioner Family | DX: E11.622 Type 2 diabetes mellitus with other skin ulcer (principal); I89.0 Lymphedema, not elsewhere classified; L97.222 Non-pressure chronic ulcer of left calf with fat layer exposed; L97.818 Non-pressure chronic ulcer of other part of right lower leg with other specified severity; Z79.84 Long term (current) use of oral hypoglycemic drugs | CPT/HCPCS: 11042; 11045 ==

== ENCOUNTER 2023-02-14 09:48 | Outpatient (CLI) | payer MEDICARE, BC, SELFPAY | END 2023-02-14 09:49 | disposition home or self-care (01) | LOC: WOUND 09:48 | PROVIDERS: PCP Internal Medicine; Visit Provider Nurse Practitioner Family | DX: E11.622 Type 2 diabetes mellitus with other skin ulcer (principal); I89.0 Lymphedema, not elsewhere classified; L97.222 Non-pressure chronic ulcer of left calf with fat layer exposed; L97.212 Non-pressure chronic ulcer of right calf with fat layer exposed; I87.2 Venous insufficiency (chronic) (peripheral); Z79.84 Long term (current) use of oral hypoglycemic drugs | CPT/HCPCS: 97597; 97598 ==

== ENCOUNTER 2023-02-21 09:49 | Outpatient (CLI) | payer MEDICARE, BC, SELFPAY | END 2023-02-21 09:50 | disposition home or self-care (01) | LOC: WOUND 09:49 | PROVIDERS: PCP Internal Medicine; Visit Provider Family Medicine | DX: I89.0 Lymphedema, not elsewhere classified (principal); L97.222 Non-pressure chronic ulcer of left calf with fat layer exposed; L97.818 Non-pressure chronic ulcer of other part of right lower leg with other specified severity | CPT/HCPCS: 97597; 97598 ==

== ENCOUNTER 2023-02-28 09:41 | Outpatient (CLI) | payer MEDICARE, BC, SELFPAY | END 2023-02-28 09:42 | disposition home or self-care (01) | LOC: WOUND 09:41 | PROVIDERS: PCP Internal Medicine; Visit Provider Nurse Practitioner Family | DX: E11.622 Type 2 diabetes mellitus with other skin ulcer (principal); I89.0 Lymphedema, not elsewhere classified; L97.222 Non-pressure chronic ulcer of left calf with fat layer exposed; L97.812 Non-pressure chronic ulcer of other part of right lower leg with fat layer exposed; Z79.84 Long term (current) use of oral hypoglycemic drugs | CPT/HCPCS: 11042; 11045 ==

== ENCOUNTER 2023-03-07 09:33 | Outpatient (CLI) | payer MEDICARE, BC, SELFPAY | END 2023-03-07 09:34 | disposition home or self-care (01) | LOC: WOUND 09:33 | PROVIDERS: PCP Internal Medicine; Visit Provider Nurse Practitioner Family | DX: I89.0 Lymphedema, not elsewhere classified (principal); I87.2 Venous insufficiency (chronic) (peripheral); L97.222 Non-pressure chronic ulcer of left calf with fat layer exposed; L97.818 Non-pressure chronic ulcer of other part of right lower leg with other specified severity | CPT/HCPCS: 97597; 97598 ==

== ENCOUNTER 2023-03-14 09:43 | Outpatient (CLI) | payer MEDICARE, BC, SELFPAY | END 2023-03-14 09:44 | disposition home or self-care (01) | LOC: WOUND 09:44 | PROVIDERS: PCP Internal Medicine; Visit Provider Nurse Practitioner Family | DX: E11.622 Type 2 diabetes mellitus with other skin ulcer (principal); I89.0 Lymphedema, not elsewhere classified; L97.222 Non-pressure chronic ulcer of left calf with fat layer exposed; L97.812 Non-pressure chronic ulcer of other part of right lower leg with fat layer exposed; I87.2 Venous insufficiency (chronic) (peripheral); Z79.84 Long term (current) use of oral hypoglycemic drugs | CPT/HCPCS: 11042; 11045 ==

== ENCOUNTER 2023-03-21 09:42 | Outpatient (CLI) | payer MEDICARE, BC, SELFPAY | END 2023-03-21 09:43 | disposition home or self-care (01) | LOC: WOUND 09:43 | PROVIDERS: PCP Internal Medicine; Visit Provider Nurse Practitioner Family | DX: I89.0 Lymphedema, not elsewhere classified (principal); L97.222 Non-pressure chronic ulcer of left calf with fat layer exposed; L97.812 Non-pressure chronic ulcer of other part of right lower leg with fat layer exposed | CPT/HCPCS: 11042; 97602 ==

== ENCOUNTER 2023-03-28 09:45 | Outpatient (CLI) | payer MEDICARE, BC, SELFPAY | END 2023-03-28 09:46 | disposition home or self-care (01) | LOC: WOUND 09:46 | PROVIDERS: PCP Internal Medicine; Visit Provider Nurse Practitioner Family | DX: E11.622 Type 2 diabetes mellitus with other skin ulcer (principal); I89.0 Lymphedema, not elsewhere classified; L97.222 Non-pressure chronic ulcer of left calf with fat layer exposed; L97.212 Non-pressure chronic ulcer of right calf with fat layer exposed; Z79.84 Long term (current) use of oral hypoglycemic drugs | CPT/HCPCS: 15271; 15272; Q4158 ==

== ENCOUNTER 2023-04-05 09:51 | Outpatient (CLI) | payer MEDICARE, BC, SELFPAY | END 2023-04-05 09:52 | disposition home or self-care (01) | LOC: WOUND 09:52 | PROVIDERS: PCP Internal Medicine; Visit Provider Family Medicine | DX: E11.622 Type 2 diabetes mellitus with other skin ulcer (principal); I89.0 Lymphedema, not elsewhere classified; L97.222 Non-pressure chronic ulcer of left calf with fat layer exposed; L97.812 Non-pressure chronic ulcer of other part of right lower leg with fat layer exposed; Z79.84 Long term (current) use of oral hypoglycemic drugs | CPT/HCPCS: 11042; 11045 ==

== ENCOUNTER 2023-04-18 09:53 | Outpatient (CLI) | payer MEDICARE, BC, SELFPAY | END 2023-04-18 09:54 | disposition home or self-care (01) | LOC: WOUND 09:53 | PROVIDERS: PCP Internal Medicine; Visit Provider Nurse Practitioner Family | DX: E11.622 Type 2 diabetes mellitus with other skin ulcer (principal); I89.0 Lymphedema, not elsewhere classified; L97.222 Non-pressure chronic ulcer of left calf with fat layer exposed; L97.818 Non-pressure chronic ulcer of other part of right lower leg with other specified severity; I87.2 Venous insufficiency (chronic) (peripheral); Z79.84 Long term (current) use of oral hypoglycemic drugs | CPT/HCPCS: 11042; 11045; 97597 ==

== ENCOUNTER 2023-04-25 09:54 | Outpatient (CLI) | payer MEDICARE, BC, SELFPAY | END 2023-04-25 09:55 | disposition home or self-care (01) | LOC: WOUND 09:54 | PROVIDERS: PCP Internal Medicine; Visit Provider Nurse Practitioner Family | DX: I89.0 Lymphedema, not elsewhere classified (principal); I87.2 Venous insufficiency (chronic) (peripheral); E11.622 Type 2 diabetes mellitus with other skin ulcer; L97.222 Non-pressure chronic ulcer of left calf with fat layer exposed; L97.212 Non-pressure chronic ulcer of right calf with fat layer exposed; Z79.84 Long term (current) use of oral hypoglycemic drugs | CPT/HCPCS: 97597; 97598 ==

== ENCOUNTER 2023-05-02 09:40 | Outpatient (CLI) | payer MEDICARE, BC, SELFPAY | END 2023-05-02 09:41 | disposition home or self-care (01) | LOC: WOUND 09:40 | PROVIDERS: PCP Internal Medicine; Visit Provider Nurse Practitioner Family | DX: I89.0 Lymphedema, not elsewhere classified (principal); E11.622 Type 2 diabetes mellitus with other skin ulcer; L97.222 Non-pressure chronic ulcer of left calf with fat layer exposed; L97.212 Non-pressure chronic ulcer of right calf with fat layer exposed; Z79.84 Long term (current) use of oral hypoglycemic drugs | CPT/HCPCS: 11042; 11045 ==

== ENCOUNTER 2023-05-09 09:52 | Outpatient (CLI) | payer MEDICARE, BC, SELFPAY | END 2023-05-09 09:53 | disposition home or self-care (01) | LOC: WOUND 09:53 | PROVIDERS: PCP Internal Medicine; Visit Provider Nurse Practitioner Family | DX: I87.2 Venous insufficiency (chronic) (peripheral) (principal); E11.622 Type 2 diabetes mellitus with other skin ulcer; L97.222 Non-pressure chronic ulcer of left calf with fat layer exposed; L97.818 Non-pressure chronic ulcer of other part of right lower leg with other specified severity; I89.0 Lymphedema, not elsewhere classified; Z79.84 Long term (current) use of oral hypoglycemic drugs | CPT/HCPCS: 15271; 97597; Q4158 ==

== ENCOUNTER 2023-05-16 09:49 | Outpatient (CLI) | payer MEDICARE, BC, SELFPAY | END 2023-05-16 09:50 | disposition home or self-care (01) | LOC: WOUND 09:49 | PROVIDERS: PCP Internal Medicine; Visit Provider Nurse Practitioner Family | DX: I87.2 Venous insufficiency (chronic) (peripheral) (principal); L97.222 Non-pressure chronic ulcer of left calf with fat layer exposed; L97.812 Non-pressure chronic ulcer of other part of right lower leg with fat layer exposed; I89.0 Lymphedema, not elsewhere classified | CPT/HCPCS: 11042; 97602 ==

== ENCOUNTER 2023-05-23 09:51 | Outpatient (CLI) | payer MEDICARE, BC, SELFPAY | END 2023-05-23 09:52 | disposition home or self-care (01) | LOC: WOUND 09:52 | PROVIDERS: PCP Internal Medicine; Visit Provider Physician Assistant | DX: I87.2 Venous insufficiency (chronic) (peripheral) (principal); E11.622 Type 2 diabetes mellitus with other skin ulcer; L97.222 Non-pressure chronic ulcer of left calf with fat layer exposed; L97.812 Non-pressure chronic ulcer of other part of right lower leg with fat layer exposed; Z79.84 Long term (current) use of oral hypoglycemic drugs | CPT/HCPCS: 97597 ==

== ENCOUNTER 2023-05-30 09:52 | Outpatient (CLI) | payer MEDICARE, BC, SELFPAY | END 2023-05-30 09:53 | disposition home or self-care (01) | LOC: WOUND 09:53 | PROVIDERS: PCP Internal Medicine; Visit Provider Nurse Practitioner Family | DX: I87.2 Venous insufficiency (chronic) (peripheral) (principal); E11.622 Type 2 diabetes mellitus with other skin ulcer; L97.812 Non-pressure chronic ulcer of other part of right lower leg with fat layer exposed; L97.222 Non-pressure chronic ulcer of left calf with fat layer exposed; Z79.84 Long term (current) use of oral hypoglycemic drugs | CPT/HCPCS: 11042; 15271; Q4158 ==

== ENCOUNTER 2023-06-06 09:50 | Outpatient (CLI) | payer MEDICARE, BC, SELFPAY | END 2023-06-06 09:51 | disposition home or self-care (01) | LOC: WOUND 09:50 | PROVIDERS: PCP Internal Medicine; Visit Provider Nurse Practitioner Family | DX: I87.2 Venous insufficiency (chronic) (peripheral) (principal); E11.622 Type 2 diabetes mellitus with other skin ulcer; L97.222 Non-pressure chronic ulcer of left calf with fat layer exposed; L97.812 Non-pressure chronic ulcer of other part of right lower leg with fat layer exposed; Z79.84 Long term (current) use of oral hypoglycemic drugs | CPT/HCPCS: 11042 ==

== ENCOUNTER 2023-06-13 09:51 | Outpatient (CLI) | payer MEDICARE, BC, SELFPAY | END 2023-06-13 09:52 | disposition home or self-care (01) | LOC: WOUND 09:51 | PROVIDERS: PCP Internal Medicine; Visit Provider Nurse Practitioner Family | DX: I87.2 Venous insufficiency (chronic) (peripheral) (principal); E11.622 Type 2 diabetes mellitus with other skin ulcer; L97.812 Non-pressure chronic ulcer of other part of right lower leg with fat layer exposed; L97.222 Non-pressure chronic ulcer of left calf with fat layer exposed; I89.0 Lymphedema, not elsewhere classified; Z79.84 Long term (current) use of oral hypoglycemic drugs | CPT/HCPCS: 15271; 97597; Q4158 ==

== ENCOUNTER 2023-06-20 09:46 | Outpatient (CLI) | payer MEDICARE, BC, SELFPAY | END 2023-06-20 09:47 | disposition home or self-care (01) | LOC: WOUND 09:46 | PROVIDERS: PCP Internal Medicine; Visit Provider Nurse Practitioner Family | DX: I87.2 Venous insufficiency (chronic) (peripheral) (principal); E11.622 Type 2 diabetes mellitus with other skin ulcer; L97.222 Non-pressure chronic ulcer of left calf with fat layer exposed; L97.812 Non-pressure chronic ulcer of other part of right lower leg with fat layer exposed; I89.0 Lymphedema, not elsewhere classified; Z79.84 Long term (current) use of oral hypoglycemic drugs | CPT/HCPCS: 11042; 97597 ==

== ENCOUNTER 2023-06-27 09:16 | Outpatient (CLI) | payer MEDICARE, BC, SELFPAY | END 2023-06-27 09:17 | disposition home or self-care (01) | LOC: WOUND 09:16 | PROVIDERS: PCP Internal Medicine; Visit Provider Nurse Practitioner Family | DX: I87.2 Venous insufficiency (chronic) (peripheral) (principal); E11.622 Type 2 diabetes mellitus with other skin ulcer; L97.812 Non-pressure chronic ulcer of other part of right lower leg with fat layer exposed; L97.222 Non-pressure chronic ulcer of left calf with fat layer exposed; I89.0 Lymphedema, not elsewhere classified; Z79.84 Long term (current) use of oral hypoglycemic drugs | CPT/HCPCS: 15271; 97597; Q4158 ==

== ENCOUNTER 2023-07-04 09:39 | Outpatient (CLI) | payer MEDICARE, BC, SELFPAY | END 2023-07-04 09:40 | disposition home or self-care (01) | LOC: WOUND 09:39 | PROVIDERS: PCP Internal Medicine; Visit Provider Physician Assistant | DX: I87.2 Venous insufficiency (chronic) (peripheral) (principal); E11.622 Type 2 diabetes mellitus with other skin ulcer; L97.222 Non-pressure chronic ulcer of left calf with fat layer exposed; L97.812 Non-pressure chronic ulcer of other part of right lower leg with fat layer exposed; Z79.84 Long term (current) use of oral hypoglycemic drugs | CPT/HCPCS: 97597 ==

== ENCOUNTER 2023-07-11 09:47 | Outpatient (CLI) | payer MEDICARE, BC, SELFPAY | END 2023-07-11 09:48 | disposition home or self-care (01) | LOC: WOUND 09:47 | PROVIDERS: PCP Internal Medicine; Visit Provider Nurse Practitioner Family | DX: I87.2 Venous insufficiency (chronic) (peripheral) (principal); E11.622 Type 2 diabetes mellitus with other skin ulcer; E11.43 Type 2 diabetes mellitus with diabetic autonomic (poly)neuropathy; L97.222 Non-pressure chronic ulcer of left calf with fat layer exposed; L97.812 Non-pressure chronic ulcer of other part of right lower leg with fat layer exposed; L60.3 Nail dystrophy; Z79.84 Long term (current) use of oral hypoglycemic drugs | CPT/HCPCS: 11720; 97597 ==

== ENCOUNTER 2023-07-18 09:45 | Outpatient (CLI) | payer MEDICARE, BC, SELFPAY | END 2023-07-18 09:46 | disposition home or self-care (01) | LOC: WOUND 09:45 | PROVIDERS: PCP Internal Medicine; Visit Provider Nurse Practitioner Family | DX: I87.2 Venous insufficiency (chronic) (peripheral) (principal); E11.622 Type 2 diabetes mellitus with other skin ulcer; E11.43 Type 2 diabetes mellitus with diabetic autonomic (poly)neuropathy; L97.222 Non-pressure chronic ulcer of left calf with fat layer exposed; L97.812 Non-pressure chronic ulcer of other part of right lower leg with fat layer exposed; Z79.84 Long term (current) use of oral hypoglycemic drugs | CPT/HCPCS: 15271; Q4158 ==

== ENCOUNTER 2023-07-25 09:46 | Outpatient (CLI) | payer MEDICARE, BC, SELFPAY | END 2023-07-25 09:47 | disposition home or self-care (01) | LOC: WOUND 09:46 | PROVIDERS: PCP Internal Medicine; Visit Provider Nurse Practitioner Family | DX: I87.2 Venous insufficiency (chronic) (peripheral) (principal); E11.622 Type 2 diabetes mellitus with other skin ulcer; E11.43 Type 2 diabetes mellitus with diabetic autonomic (poly)neuropathy; L97.222 Non-pressure chronic ulcer of left calf with fat layer exposed; L97.812 Non-pressure chronic ulcer of other part of right lower leg with fat layer exposed; Z79.84 Long term (current) use of oral hypoglycemic drugs | CPT/HCPCS: 97597 ==

== ENCOUNTER 2023-08-01 09:49 | Outpatient (CLI) | payer MEDICARE, BC, SELFPAY | END 2023-08-01 09:50 | disposition home or self-care (01) | LOC: WOUND 09:49 | PROVIDERS: PCP Internal Medicine; Visit Provider Nurse Practitioner Family | DX: I87.2 Venous insufficiency (chronic) (peripheral) (principal); E11.622 Type 2 diabetes mellitus with other skin ulcer; E11.43 Type 2 diabetes mellitus with diabetic autonomic (poly)neuropathy; L97.222 Non-pressure chronic ulcer of left calf with fat layer exposed; L97.812 Non-pressure chronic ulcer of other part of right lower leg with fat layer exposed; I89.0 Lymphedema, not elsewhere classified; Z79.84 Long term (current) use of oral hypoglycemic drugs | CPT/HCPCS: 11042 ==

== ENCOUNTER 2023-08-08 09:53 | Outpatient (CLI) | payer MEDICARE, BC, SELFPAY | END 2023-08-08 09:54 | disposition home or self-care (01) | LOC: WOUND 09:53 | PROVIDERS: PCP Internal Medicine; Visit Provider Nurse Practitioner Family | DX: I87.2 Venous insufficiency (chronic) (peripheral) (principal); E11.622 Type 2 diabetes mellitus with other skin ulcer; E11.43 Type 2 diabetes mellitus with diabetic autonomic (poly)neuropathy; L97.222 Non-pressure chronic ulcer of left calf with fat layer exposed; L97.812 Non-pressure chronic ulcer of other part of right lower leg with fat layer exposed; I89.0 Lymphedema, not elsewhere classified; Z79.84 Long term (current) use of oral hypoglycemic drugs | CPT/HCPCS: 11042 ==

== ENCOUNTER 2023-08-15 09:57 | Outpatient (CLI) | payer MEDICARE, BC, SELFPAY | END 2023-08-15 09:58 | disposition home or self-care (01) | LOC: WOUND 09:57 | PROVIDERS: PCP Internal Medicine; Visit Provider Family Medicine | DX: I87.2 Venous insufficiency (chronic) (peripheral) (principal); E11.622 Type 2 diabetes mellitus with other skin ulcer; E11.43 Type 2 diabetes mellitus with diabetic autonomic (poly)neuropathy; L97.222 Non-pressure chronic ulcer of left calf with fat layer exposed; L97.812 Non-pressure chronic ulcer of other part of right lower leg with fat layer exposed; Z79.84 Long term (current) use of oral hypoglycemic drugs | CPT/HCPCS: 11042 ==

== ENCOUNTER 2023-08-22 09:47 | Outpatient (CLI) | payer MEDICARE, BC, SELFPAY | END 2023-08-22 09:48 | disposition home or self-care (01) | LOC: WOUND 09:47 | PROVIDERS: PCP Internal Medicine; Visit Provider Nurse Practitioner Family | DX: E11.622 Type 2 diabetes mellitus with other skin ulcer (principal); E11.43 Type 2 diabetes mellitus with diabetic autonomic (poly)neuropathy; L97.222 Non-pressure chronic ulcer of left calf with fat layer exposed; Z79.84 Long term (current) use of oral hypoglycemic drugs | CPT/HCPCS: 11042 ==

== ENCOUNTER 2023-08-29 08:40 | Outpatient (CLI) | payer MEDICARE, BC, SELFPAY | END 2023-08-29 08:41 | disposition home or self-care (01) | LOC: WOUND 08:40 | PROVIDERS: PCP Internal Medicine; Visit Provider Nurse Practitioner Family | DX: I87.313 Chronic venous hypertension (idiopathic) with ulcer of bilateral lower extremity (principal); E11.622 Type 2 diabetes mellitus with other skin ulcer; E11.43 Type 2 diabetes mellitus with diabetic autonomic (poly)neuropathy; L97.812 Non-pressure chronic ulcer of other part of right lower leg with fat layer exposed; L97.222 Non-pressure chronic ulcer of left calf with fat layer exposed; Z79.84 Long term (current) use of oral hypoglycemic drugs | CPT/HCPCS: 97597 ==

== ENCOUNTER 2023-09-06 09:42 | Outpatient (CLI) | payer MEDICARE, BC, SELFPAY | END 2023-09-06 09:43 | disposition home or self-care (01) | LOC: WOUND 09:43 | PROVIDERS: PCP Internal Medicine; Visit Provider Family Medicine | DX: I87.2 Venous insufficiency (chronic) (peripheral) (principal); E11.622 Type 2 diabetes mellitus with other skin ulcer; E11.43 Type 2 diabetes mellitus with diabetic autonomic (poly)neuropathy; L97.222 Non-pressure chronic ulcer of left calf with fat layer exposed; L97.812 Non-pressure chronic ulcer of other part of right lower leg with fat layer exposed; Z79.84 Long term (current) use of oral hypoglycemic drugs | CPT/HCPCS: 11042 ==

== ENCOUNTER 2023-09-12 09:49 | Outpatient (CLI) | payer MEDICARE, BC, SELFPAY | END 2023-09-12 09:50 | disposition home or self-care (01) | LOC: WOUND 09:49 | PROVIDERS: PCP Internal Medicine; Visit Provider Nurse Practitioner Family | DX: I87.2 Venous insufficiency (chronic) (peripheral) (principal); E11.622 Type 2 diabetes mellitus with other skin ulcer; L97.222 Non-pressure chronic ulcer of left calf with fat layer exposed; L97.812 Non-pressure chronic ulcer of other part of right lower leg with fat layer exposed; Z79.84 Long term (current) use of oral hypoglycemic drugs | CPT/HCPCS: 11042; 97597 ==

== ENCOUNTER 2023-09-19 09:48 | Outpatient (CLI) | payer MEDICARE, BC, SELFPAY | END 2023-09-19 09:49 | disposition home or self-care (01) | LOC: WOUND 09:49 | PROVIDERS: PCP Internal Medicine; Visit Provider Nurse Practitioner Family | DX: I87.2 Venous insufficiency (chronic) (peripheral) (principal); E11.43 Type 2 diabetes mellitus with diabetic autonomic (poly)neuropathy; L97.228 Non-pressure chronic ulcer of left calf with other specified severity; L97.812 Non-pressure chronic ulcer of other part of right lower leg with fat layer exposed; I89.0 Lymphedema, not elsewhere classified; Z79.84 Long term (current) use of oral hypoglycemic drugs | CPT/HCPCS: 11042 ==

== ENCOUNTER 2023-09-26 09:49 | Outpatient (CLI) | payer MEDICARE, BC, SELFPAY | END 2023-09-26 09:50 | disposition home or self-care (01) | LOC: WOUND 09:49 | PROVIDERS: PCP Internal Medicine; Visit Provider Family Medicine | DX: I87.2 Venous insufficiency (chronic) (peripheral) (principal); E11.622 Type 2 diabetes mellitus with other skin ulcer; E11.43 Type 2 diabetes mellitus with diabetic autonomic (poly)neuropathy; L97.222 Non-pressure chronic ulcer of left calf with fat layer exposed; L97.812 Non-pressure chronic ulcer of other part of right lower leg with fat layer exposed; Z79.84 Long term (current) use of oral hypoglycemic drugs | CPT/HCPCS: 11042 ==

== ENCOUNTER 2023-10-03 09:55 | Outpatient (CLI) | payer MEDICARE, BC, SELFPAY | END 2023-10-03 09:56 | disposition home or self-care (01) | LOC: WOUND 09:55 | PROVIDERS: PCP Internal Medicine; Visit Provider Nurse Practitioner Family | DX: I87.2 Venous insufficiency (chronic) (peripheral) (principal); E11.622 Type 2 diabetes mellitus with other skin ulcer; E11.43 Type 2 diabetes mellitus with diabetic autonomic (poly)neuropathy; L97.812 Non-pressure chronic ulcer of other part of right lower leg with fat layer exposed; L97.222 Non-pressure chronic ulcer of left calf with fat layer exposed; Z79.84 Long term (current) use of oral hypoglycemic drugs | CPT/HCPCS: 97597 ==

== ENCOUNTER 2023-10-10 09:47 | Outpatient (CLI) | payer MEDICARE, BC, SELFPAY | END 2023-10-10 09:48 | disposition home or self-care (01) | LOC: WOUND 09:47 | PROVIDERS: PCP Internal Medicine; Visit Provider Nurse Practitioner Family | DX: I87.2 Venous insufficiency (chronic) (peripheral) (principal); E11.622 Type 2 diabetes mellitus with other skin ulcer; E11.43 Type 2 diabetes mellitus with diabetic autonomic (poly)neuropathy; I89.0 Lymphedema, not elsewhere classified; L97.222 Non-pressure chronic ulcer of left calf with fat layer exposed; L97.812 Non-pressure chronic ulcer of other part of right lower leg with fat layer exposed; Z79.84 Long term (current) use of oral hypoglycemic drugs | CPT/HCPCS: 15271; Q4121 ==

== ENCOUNTER 2023-10-17 15:41 | Outpatient (CLI) | payer MEDICARE, BC, SELFPAY | END 2023-10-17 15:42 | disposition home or self-care (01) | LOC: WOUND 15:41 | PROVIDERS: PCP Internal Medicine; Visit Provider Nurse Practitioner Family | DX: I87.2 Venous insufficiency (chronic) (peripheral) (principal); E11.622 Type 2 diabetes mellitus with other skin ulcer; E11.43 Type 2 diabetes mellitus with diabetic autonomic (poly)neuropathy; L97.222 Non-pressure chronic ulcer of left calf with fat layer exposed; L97.812 Non-pressure chronic ulcer of other part of right lower leg with fat layer exposed; Z79.84 Long term (current) use of oral hypoglycemic drugs | CPT/HCPCS: 97597 ==

== ENCOUNTER 2023-10-24 09:44 | Outpatient (CLI) | payer MEDICARE, BC, SELFPAY | END 2023-10-24 09:45 | disposition home or self-care (01) | LOC: WOUND 09:44 | PROVIDERS: PCP Internal Medicine; Visit Provider Physician Assistant Surgical | DX: I87.2 Venous insufficiency (chronic) (peripheral) (principal); E11.622 Type 2 diabetes mellitus with other skin ulcer; E11.43 Type 2 diabetes mellitus with diabetic autonomic (poly)neuropathy; L97.222 Non-pressure chronic ulcer of left calf with fat layer exposed; L97.812 Non-pressure chronic ulcer of other part of right lower leg with fat layer exposed; Z79.84 Long term (current) use of oral hypoglycemic drugs | CPT/HCPCS: 15271; C5271; Q4121 ==

== ENCOUNTER 2023-10-31 09:48 | Outpatient (CLI) | payer MEDICARE, BC, SELFPAY | END 2023-10-31 09:49 | disposition home or self-care (01) | LOC: WOUND 09:49 | PROVIDERS: PCP Internal Medicine; Visit Provider Nurse Practitioner Family | DX: I87.2 Venous insufficiency (chronic) (peripheral) (principal); E11.622 Type 2 diabetes mellitus with other skin ulcer; E11.43 Type 2 diabetes mellitus with diabetic autonomic (poly)neuropathy; I89.0 Lymphedema, not elsewhere classified; L97.222 Non-pressure chronic ulcer of left calf with fat layer exposed; L97.812 Non-pressure chronic ulcer of other part of right lower leg with fat layer exposed; Z79.84 Long term (current) use of oral hypoglycemic drugs | CPT/HCPCS: 97597 ==

== ENCOUNTER 2023-11-07 09:47 | Outpatient (CLI) | payer MEDICARE, BC, SELFPAY | END 2023-11-07 09:48 | disposition home or self-care (01) | LOC: WOUND 09:47 | PROVIDERS: PCP Internal Medicine; Visit Provider Family Medicine | DX: I87.2 Venous insufficiency (chronic) (peripheral) (principal); E11.622 Type 2 diabetes mellitus with other skin ulcer; E11.43 Type 2 diabetes mellitus with diabetic autonomic (poly)neuropathy; L97.222 Non-pressure chronic ulcer of left calf with fat layer exposed; L97.812 Non-pressure chronic ulcer of other part of right lower leg with fat layer exposed; I89.0 Lymphedema, not elsewhere classified | CPT/HCPCS: 11042 ==

== ENCOUNTER 2023-11-14 10:00 | Outpatient (CLI) | payer MEDICARE, BC, SELFPAY | END 2023-11-14 10:01 | disposition home or self-care (01) | LOC: WOUND 11-15 12:27 | PROVIDERS: PCP Internal Medicine; Visit Provider Nurse Practitioner Family | DX: I87.2 Venous insufficiency (chronic) (peripheral) (principal); E11.622 Type 2 diabetes mellitus with other skin ulcer; E11.43 Type 2 diabetes mellitus with diabetic autonomic (poly)neuropathy; L97.222 Non-pressure chronic ulcer of left calf with fat layer exposed; Z79.84 Long term (current) use of oral hypoglycemic drugs | CPT/HCPCS: 97597 ==

== ENCOUNTER 2023-11-21 09:39 | Outpatient (CLI) | payer MEDICARE, BC, SELFPAY | END 2023-11-21 09:40 | disposition home or self-care (01) | LOC: WOUND 09:39 | PROVIDERS: PCP Internal Medicine; Visit Provider Nurse Practitioner Family | DX: I87.2 Venous insufficiency (chronic) (peripheral) (principal); I89.0 Lymphedema, not elsewhere classified; L97.222 Non-pressure chronic ulcer of left calf with fat layer exposed | CPT/HCPCS: 15271; Q4201 ==

== ENCOUNTER 2023-11-28 09:41 | Outpatient (CLI) | payer MEDICARE, BC, SELFPAY | END 2023-11-28 09:42 | disposition home or self-care (01) | LOC: WOUND 09:41 | PROVIDERS: PCP Internal Medicine; Visit Provider Nurse Practitioner Family | DX: I87.2 Venous insufficiency (chronic) (peripheral) (principal); E11.622 Type 2 diabetes mellitus with other skin ulcer; E11.43 Type 2 diabetes mellitus with diabetic autonomic (poly)neuropathy; L97.222 Non-pressure chronic ulcer of left calf with fat layer exposed; Z79.84 Long term (current) use of oral hypoglycemic drugs | CPT/HCPCS: 97597 ==

== ENCOUNTER 2023-12-05 09:51 | Outpatient (CLI) | payer MEDICARE, BC, SELFPAY | END 2023-12-05 09:52 | disposition home or self-care (01) | LOC: WOUND 09:51 | PROVIDERS: PCP Internal Medicine; Visit Provider Physician Assistant Surgical | DX: I87.313 Chronic venous hypertension (idiopathic) with ulcer of bilateral lower extremity (principal); E11.622 Type 2 diabetes mellitus with other skin ulcer; L97.222 Non-pressure chronic ulcer of left calf with fat layer exposed; L97.812 Non-pressure chronic ulcer of other part of right lower leg with fat layer exposed; I89.0 Lymphedema, not elsewhere classified | CPT/HCPCS: 11042; 15271; Q4201 ==

== ENCOUNTER 2023-12-13 10:24 | Outpatient (CLI) | payer MEDICARE, BC, SELFPAY | END 2023-12-13 10:25 | disposition home or self-care (01) | LOC: WOUND 10:24 | PROVIDERS: PCP Internal Medicine; Visit Provider Nurse Practitioner Family | DX: I87.313 Chronic venous hypertension (idiopathic) with ulcer of bilateral lower extremity (principal); E11.622 Type 2 diabetes mellitus with other skin ulcer; I89.0 Lymphedema, not elsewhere classified; L97.222 Non-pressure chronic ulcer of left calf with fat layer exposed; L97.812 Non-pressure chronic ulcer of other part of right lower leg with fat layer exposed | CPT/HCPCS: 97597 ==

== ENCOUNTER 2023-12-19 09:50 | Outpatient (CLI) | payer MEDICARE, BC, SELFPAY | END 2023-12-19 09:51 | disposition home or self-care (01) | LOC: WOUND 09:51 | PROVIDERS: PCP Internal Medicine; Visit Provider Nurse Practitioner Family | DX: I87.313 Chronic venous hypertension (idiopathic) with ulcer of bilateral lower extremity (principal); I87.2 Venous insufficiency (chronic) (peripheral); E11.622 Type 2 diabetes mellitus with other skin ulcer; L97.228 Non-pressure chronic ulcer of left calf with other specified severity; L97.818 Non-pressure chronic ulcer of other part of right lower leg with other specified severity; I89.0 Lymphedema, not elsewhere classified | CPT/HCPCS: 97597 ==

== ENCOUNTER 2023-12-26 09:49 | Outpatient (CLI) | payer MEDICARE, BC, SELFPAY | END 2023-12-26 09:50 | disposition home or self-care (01) | LOC: WOUND 09:49 | PROVIDERS: PCP Internal Medicine; Visit Provider Nurse Practitioner Family | DX: I87.313 Chronic venous hypertension (idiopathic) with ulcer of bilateral lower extremity (principal); I89.0 Lymphedema, not elsewhere classified; E11.622 Type 2 diabetes mellitus with other skin ulcer; L97.222 Non-pressure chronic ulcer of left calf with fat layer exposed; L97.812 Non-pressure chronic ulcer of other part of right lower leg with fat layer exposed; Z79.84 Long term (current) use of oral hypoglycemic drugs | CPT/HCPCS: 11042 ==

== ENCOUNTER 2024-01-02 09:45 | Outpatient (CLI) | payer MEDICARE, BC, SELFPAY | END 2024-01-02 09:46 | disposition home or self-care (01) | LOC: WOUND 09:46 | PROVIDERS: PCP Internal Medicine; Visit Provider Nurse Practitioner Family | DX: I87.313 Chronic venous hypertension (idiopathic) with ulcer of bilateral lower extremity (principal); I87.2 Venous insufficiency (chronic) (peripheral); I89.0 Lymphedema, not elsewhere classified; E11.622 Type 2 diabetes mellitus with other skin ulcer; L97.222 Non-pressure chronic ulcer of left calf with fat layer exposed; L97.822 Non-pressure chronic ulcer of other part of left lower leg with fat layer exposed; L97.812 Non-pressure chronic ulcer of other part of right lower leg with fat layer exposed | CPT/HCPCS: 11042; 97597 ==

== ENCOUNTER 2024-01-09 09:45 | Outpatient (CLI) | payer MEDICARE, BC, SELFPAY | END 2024-01-09 09:46 | disposition home or self-care (01) | LOC: WOUND 09:46 | PROVIDERS: PCP Internal Medicine; Visit Provider Nurse Practitioner Family | DX: I87.311 Chronic venous hypertension (idiopathic) with ulcer of right lower extremity (principal); I87.2 Venous insufficiency (chronic) (peripheral); I89.0 Lymphedema, not elsewhere classified; L97.812 Non-pressure chronic ulcer of other part of right lower leg with fat layer exposed; E11.622 Type 2 diabetes mellitus with other skin ulcer; Z79.84 Long term (current) use of oral hypoglycemic drugs | CPT/HCPCS: 97597 ==

== ENCOUNTER 2024-01-16 09:49 | Outpatient (CLI) | payer MEDICARE, BC, SELFPAY | END 2024-01-16 09:50 | disposition home or self-care (01) | LOC: WOUND 09:49 | PROVIDERS: PCP Internal Medicine; Visit Provider Physician Assistant Surgical | DX: I87.311 Chronic venous hypertension (idiopathic) with ulcer of right lower extremity (principal); E11.622 Type 2 diabetes mellitus with other skin ulcer; L97.812 Non-pressure chronic ulcer of other part of right lower leg with fat layer exposed; Z79.84 Long term (current) use of oral hypoglycemic drugs | CPT/HCPCS: 11042 ==

== ENCOUNTER 2024-01-23 09:55 | Outpatient (CLI) | payer MEDICARE, BC, SELFPAY | END 2024-01-23 09:56 | disposition home or self-care (01) | LOC: WOUND 09:56 | PROVIDERS: PCP Internal Medicine; Visit Provider Nurse Practitioner Family | DX: I87.311 Chronic venous hypertension (idiopathic) with ulcer of right lower extremity (principal); I87.2 Venous insufficiency (chronic) (peripheral); I89.0 Lymphedema, not elsewhere classified; L97.812 Non-pressure chronic ulcer of other part of right lower leg with fat layer exposed; I73.9 Peripheral vascular disease, unspecified | CPT/HCPCS: 11042; 97597 ==

== ENCOUNTER 2024-01-30 10:12 | Outpatient (CLI) | payer MEDICARE, BC, SELFPAY | END 2024-01-30 10:13 | disposition home or self-care (01) | LOC: WOUND 10:12 | PROVIDERS: PCP Internal Medicine; Visit Provider Nurse Practitioner Family | DX: I87.311 Chronic venous hypertension (idiopathic) with ulcer of right lower extremity (principal); I87.2 Venous insufficiency (chronic) (peripheral); I89.0 Lymphedema, not elsewhere classified; E11.622 Type 2 diabetes mellitus with other skin ulcer; L97.818 Non-pressure chronic ulcer of other part of right lower leg with other specified severity; L97.812 Non-pressure chronic ulcer of other part of right lower leg with fat layer exposed; Z79.84 Long term (current) use of oral hypoglycemic drugs | CPT/HCPCS: 11042 ==

== ENCOUNTER 2024-02-06 09:48 | Outpatient (CLI) | payer MEDICARE, BC, SELFPAY | END 2024-02-06 09:49 | disposition home or self-care (01) | LOC: WOUND 09:48 | PROVIDERS: PCP Internal Medicine; Visit Provider Nurse Practitioner Family | DX: I87.311 Chronic venous hypertension (idiopathic) with ulcer of right lower extremity (principal); I87.2 Venous insufficiency (chronic) (peripheral); I89.0 Lymphedema, not elsewhere classified; E11.622 Type 2 diabetes mellitus with other skin ulcer; L97.812 Non-pressure chronic ulcer of other part of right lower leg with fat layer exposed; Z79.84 Long term (current) use of oral hypoglycemic drugs | CPT/HCPCS: 11042 ==

== ENCOUNTER 2024-02-13 09:55 | Outpatient (CLI) | payer MEDICARE, BC, SELFPAY | END 2024-02-13 09:56 | disposition home or self-care (01) | LOC: WOUND 09:55 | PROVIDERS: PCP Internal Medicine; Visit Provider Family Medicine | DX: I87.311 Chronic venous hypertension (idiopathic) with ulcer of right lower extremity (principal); I87.2 Venous insufficiency (chronic) (peripheral); E11.622 Type 2 diabetes mellitus with other skin ulcer; L97.812 Non-pressure chronic ulcer of other part of right lower leg with fat layer exposed; Z79.84 Long term (current) use of oral hypoglycemic drugs | CPT/HCPCS: 11042 ==

== ENCOUNTER 2024-02-20 09:47 | Outpatient (CLI) | payer MEDICARE, BC, SELFPAY | END 2024-02-20 09:48 | disposition home or self-care (01) | LOC: WOUND 09:47 | PROVIDERS: PCP Internal Medicine; Visit Provider Family Medicine | DX: I87.311 Chronic venous hypertension (idiopathic) with ulcer of right lower extremity (principal); I87.2 Venous insufficiency (chronic) (peripheral); L97.812 Non-pressure chronic ulcer of other part of right lower leg with fat layer exposed; L97.811 Non-pressure chronic ulcer of other part of right lower leg limited to breakdown of skin | CPT/HCPCS: 11042; 97597 ==

== ENCOUNTER 2024-02-27 09:40 | Outpatient (CLI) | payer MEDICARE, BC, SELFPAY | END 2024-02-27 09:41 | disposition home or self-care (01) | LOC: WOUND 09:40 | PROVIDERS: PCP Internal Medicine; Visit Provider Nurse Practitioner Family | DX: I87.311 Chronic venous hypertension (idiopathic) with ulcer of right lower extremity (principal); I87.2 Venous insufficiency (chronic) (peripheral); E11.622 Type 2 diabetes mellitus with other skin ulcer; L97.812 Non-pressure chronic ulcer of other part of right lower leg with fat layer exposed; I89.0 Lymphedema, not elsewhere classified; Z79.84 Long term (current) use of oral hypoglycemic drugs | CPT/HCPCS: 11042 ==

== ENCOUNTER 2024-03-05 09:43 | Outpatient (CLI) | payer MEDICARE, BC, SELFPAY | END 2024-03-05 09:44 | disposition home or self-care (01) | LOC: WOUND 09:44 | PROVIDERS: PCP Internal Medicine; Visit Provider Nurse Practitioner Family | DX: I87.311 Chronic venous hypertension (idiopathic) with ulcer of right lower extremity (principal); I87.2 Venous insufficiency (chronic) (peripheral); E11.622 Type 2 diabetes mellitus with other skin ulcer; I89.0 Lymphedema, not elsewhere classified; L97.812 Non-pressure chronic ulcer of other part of right lower leg with fat layer exposed; Z79.84 Long term (current) use of oral hypoglycemic drugs | CPT/HCPCS: 15271; Q4201 ==

== ENCOUNTER 2024-03-06 09:25 | Emergency (ER) | payer MEDICARE, BC, SELFPAY ==
[2024-03-06] VITALS (25 sets, daily range): BP systolic 114–160; BP diastolic 71–102; PULSE 64–81; RESP 20; TEMP 36.6; O2SAT 80–94; BMI 60.9
--- NOTE | 2024-03-06 09:39 | ED_ITS ---
HPI - General Adult General Date Seen: 03/06/24 Chief complaint: Shortness of Breath/Dyspnea Stated complaint: Shortness of breath Time Seen by Provider: 03/06/24 09:39 History of Present Illness HPI narrative: This is a 68-year-old gentleman brought to the ER today from his home by EMS for feeling tired and listless, with shortness of breath. Report from paramedics is that he has been feeling a bit run down and tired for 3 days. He was seemed a little bit confused yesterday, according to his but is less confused today. He is just feeling run down and tired. This morning he felt like he just was not breathing right. He called the ambulance. When paramedics arrived he was hypoxic with sats in the mid 70s on room air. They administered a DuoNeb and sats came up to the high 80s. The put him on nasal cannula and brought him here to the ER. They note that he feels much better after the neb. He is diabetic. Blood sugar was 129. Past medical history includes morbid obesity with BMI above 60, he says he weighs about 500 lb. He has chronic bilateral lower extremity lymphedema. He has chronic wounds on his right lower leg and follows with the [facility] here in [place] for that. He says he gets checkup once every Tuesday and that his wounds are ?almost completely? healed. He also has home nursing and they do wraps and dressing changes on his wounds twice a week. His wound is not been showing signs of worsening or infection lately. He had his checkup yesterday morning in the wounds looked good. He also has a history of COVID with respiratory failure requiring a 30 day hospitalization last year. He says he uses an inhaler ?as needed. ? When I ask him how much he needs to use his inhaler he says maybe once every 3 or 4 days. He also says that he has chronically low oxygen. Apparently his home nurses check his oxygen with every visit and he typically runs in the high 80s (88-89). He is not on home oxygen. He also has a past medical history of atrial fibrillation, dyslipidemia, insulin-dependent type 2 diabetes. I saw him here in the ER last November with shortness of breath. He was COVID positive. Labs showed normal pH with elevated pCO2 suggestive of chronic CO2 retention. Initial VBG showed pH is 7.36 with a pCO2 of 56. He was COVID positive. He was admitted here in [facility] initially and then had respiratory decompensation requiring transfer to [facility]. Follow-up VBG showed a pH 7.15 with a pCO2 of 96. He was intubated for somnolence and need for airway protection was transferred to the ICU at [place]. He reports that he had a 30 day hospital stay after that. He was discharged home and does not have any chronic oxygen. Patient says his current illnesses been going on for perhaps 3 days or so. He has just been feeling run down and tired. He has perhaps had a mild cough with some production of some thick sputum. He cannot describe the color. No fevers. He has had a little bit of pain in his nose but he thinks his nose hurts because he bumped it a couple of days ago. No nasal congestion. No sore throat. He is around his neighbors and his 7-year-old granddaughter but has no known specific exposure to any illness. He he has just been feeling tired and run down in addition to his cough. He had a little bit of chest pain yesterday but none today. No palpitations. No nausea or vomiting. No diarrhea. He says he tends toward constipation. Appetite been normal and he ate 3 eggs for breakfast yesterday. He does have chronic bilateral lower extremity edema for which he has felt grows and wraps. He had his checkup at the wound clinic y[facility] r[facility] and his wounds were looking good. This morning he was just feeling more run down and felt like something was wrong with his breathing so he called the ambulance. After the [facility] he says he is fee ling ?pretty good right now. ? No other complaints. Related Data Home Medications ?Medication ?Instructions ?Recorded ?Confirmed acetic acid 0.25 % irrigation 1 irrig irrigation Q6H PRN 12/26/21 11/25/22 solution amiodarone 200 mg tablet 200 mg PO DAILY 12/26/21 11/25/22 apixaban 5 mg tablet (Eliquis) 5 mg PO BID 12/26/21 11/25/22 carvedilol 12.5 mg tablet 12.5 mg PO BID 12/26/21 11/25/22 metformin 500 mg tablet 1,000 mg PO BID 12/26/21 11/25/22 pravastatin 20 mg tablet 20 mg PO NIGHTLY 12/26/21 11/25/22 sacubitril 49 mg-valsartan 51 mg 1 tab PO BID 12/26/21 11/25/22 tablet (Entresto) spironolactone 25 mg tablet 25 mg PO DAILY 12/26/21 11/25/22 albuterol sulfate 90 mcg/actuation 2 puff inhalation Q4H PRN wheezing 11/25/22 11/25/22 aerosol inhaler blood sugar diagnostic (Accu-Chek 11/25/22 11/25/22 SmartView Test Strips) semaglutide 0.25 mg or 0.5 mg (2 0.25 mg subcut .weekly 11/25/22 11/25/22 mg/3 mL) subcutaneous pen injector (Ozempic) Previous Rx's ?Medication ?Instructions ?Recorded sulfamethoxazole 800 1 tab PO BID #10 tabs 12/26/21 mg-trimethoprim 160 mg tablet (Bactrim DS) Allergies Allergy/AdvReac Type Severity Reaction Status Date / Time No Known Drug Allergies Allergy Verified 11/26/22 02:47 [facility] Medical History (Updated 03/06/24 @ 11:54 by Ross Benitez MD) Morbid obesity with BMI of 60.0-69.9, adult ?E66.01 - Morbid (severe) obesity due to excess calories (ICD-10) ?Z68.44 - Body mass index [BMI] 60.0-69.9, adult (ICD-10) Non-pressure ulcer of right lower extremity with fat layer exposed ?L97.912 - Non-pressure chronic ulcer of unspecified part of right lower leg with fat layer exposed (ICD-10) Social History Smoking Status: Never smoker Do you use any of these nicotine containing products: None Second hand tobacco smoke exposure: No How often do you have a drink containing alcohol: never How often do you have six or more drinks on one occasion: Never AUDIT-C Alcohol total score: 0 Non-prescribed substance use: denies use service: No Exam Narrative: Exam Narrative: Primary Survey: A- patent. Speaking clearly. Phonation normal. No stridor. B- breathing easily. No wheezing on his upper lungs. Very diminished almost no breath sounds in the left base. Hypoxic into the 80s on room air. Sats came up to the mid 90s on 4 L. Hearing that his baseline is typically in the high 80s at turned down to 2 L with sats about 90%. C- no active bleeding. Blood pressure stable. Symmetric pulses and cap refill in both hands. He has wraps and socks on his feet. He has normal skin perfusion of his upper portion of his lower leg. D- alert and oriented x3. GCS 15. No focal deficits. Constitutional: Appears well-developed . He has an elevated BMI. Because of his size he requires assistance of 2 nurses to help position his legs up into the bed. Alert. Conversant, he speaking full sentences and respirations are unlabored. He has a rambling historian, however he is easily redirectable to his HPI. HENT: Head: Atraumatic. Nose: Nose normal. Mouth/Throat: Oral mucosa is clear and moist. no trismus. Pharynx normal. T onsils symmetric. No tonsillar enlargement, erythema, or exudate. Eyes: Conjunctivae normal. EOM normal. Pupils equal, round, and reactive to light. No scleral icterus. Neck: Normal range of motion. Neck supple. No tracheal deviation present. Cardiovascular: Normal rate, regular rhythm. No gallop. No friction rub. No murmur heard. Symmetric radial artery pulses Pulmonary/Chest: Effort normal. No stridor. Hypoxic. Breathing easily with nasal cannula. Diminished lung sounds in left base. Right lung sounds fairly clear. Apices are clear. No wheezing currently but he did just get a neb by EMS. Abdominal: Soft. Bowel sounds normal. Protuberant due to body habitus but non tympanic No mass. No tenderness. No rebound. No guarding. Musculoskeletal: RUE: Normal range of motion. No tenderness. No deformity LUE: Normal range of motion. No tenderness. No deformity RLE: Normal range of motion. 3+ chronic edema. No tenderness. No deformity LLE: Normal range of motion. 3+ chronic edema. No tenderness. No deformity Lymph: No cervical adenopathy. Neurological: Alert and oriented to person, place, and time. Normal strength. CN II-VII intact. No sensory deficit. GCS eye subscore is 4. GCS verbal subscore is 5. GCS motor subscore is 6. Normal coordination Skin: He has wraps on both of his lower extremities. He was in the wound clinic yesterday for wound care and his words apparently looked great. Therefore will not remove his wraps today because he needs them for his long- term wound healing. Skin of his torso and upper extremities and back is warm and dry. No rash noted. No pallor. Normal capillary refill. Psychiatric: Normal mood. Normal affect. Polite. Const: Vital Signs, click to edit/add: Vital Signs - 24 hr 03/06/24 09:34 03/06/24 09:34 03/06/24 09:35 Temperature 97.8 F Pulse Rate 70 Pulse Rate [Pulse Oximeter] 65 Respiratory Rate 20 Blood Pressure 152/85 H Blood Pressure [Ri ght Upper Arm] 160/87 H Pulse Oximetry 92 92 80 L Oxygen Delivery Me thod Nasal Cannula Room Air Oxygen Flow Rate 3 Fraction of Inspir ed Oxygen 03/06/24 09:35 03/06/24 09:42 03/06/24 10:00 Temperature Pulse Rate 72 72 77 Pulse Rate [Pulse Oximeter] Respiratory Rate Blood Pressure 146/83 H Blood Pressure [Ri ght Upper Arm] Pulse Oximetry 93 94 90 Oxygen Delivery Me thod Oxygen Flow Rate Fraction of Inspir ed Oxygen 03/06/24 10:02 03/06/24 10:22 03/06/24 10:23 Temperature Pulse Rate 78 Pulse Rate [Pulse Oximeter] Respiratory Rate Blood Pressure 150/81 H 148/74 H Blood Pressure [Ri ght Upper Arm] Pulse Oximetry 91 Oxygen Delivery Me thod Oxygen Flow Rate Fraction of Inspir ed Oxygen 03/06/24 10:42 03/06/24 10:44 03/06/24 11:00 Temperature Pulse Rate 69 72 69 Pulse Rate [Pulse Oximeter] Respiratory Rate Blood Pressure 127/71 Blood Pressure [Ri ght Upper Arm] Pulse Oximetry 90 94 86 L Oxygen Delivery Me thod Oxygen Flow Rate Fraction of Inspir ed Oxygen 03/06/24 11:02 03/06/24 11:30 03/06/24 11:32 Temperature Pulse Rate 68 74 64 Pulse Rate [Pulse Oximeter] Respiratory Rate Blood Pressure 128/102 H 124/71 Blood Pressure [Ri ght Upper Arm] Pulse Oximetry 90 91 92 Oxygen Delivery Me thod Oxygen Flow Rate Fraction of Inspir ed Oxygen 03/06/24 11:33 03/06/24 11:45 03/06/24 12:00 Temperature Pulse Rate 66 68 Pulse Rate [Pulse Oximeter] Respiratory Rate Blood Pressure Blood Pressure [Ri ght Upper Arm] Pulse Oximetry 92 90 Oxygen Delivery Me thod Oxygen Flow Rate Fraction of Inspir ed Oxygen 40 03/06/24 12:04 03/06/24 12:05 03/06/24 12:30 Temperature Pulse Rate 70 69 81 Pulse Rate [Pulse Oximeter] Respiratory Rate Blood Pressure Blood Pressure [Ri ght Upper Arm] Pulse Oximetry 89 92 82 L Oxygen Delivery Me thod Oxygen Flow Rate Fraction of Inspir ed Oxygen 03/06/24 12:40 03/06/24 13:00 03/06/24 13:02 Temperature Pulse Rate 70 67 68 Pulse Rate [Pulse Oximeter] Respiratory Rate Blood Pressure 130/79 118/85 Blood Pressure [Ri ght Upper Arm] Pulse Oximetry 85 L 93 93 Oxygen Delivery Me thod Oxygen Flow Rate Fraction of Inspir ed Oxygen Course Course ED Course: Recheck-no definite change after DuoNeb. Reevaluation(s) Reevaluation #1: Recheck-VBG shows a respiratory acidosis with a pCO2 of 75 and a pH is 7.26. With concern for possible evolving hypercapnic respiratory failure will try him on BiPAP to improve his ventilation. Suspect is hypoventilation is likely multifactorial probably due to obesity, and partly due to decreased respiratory drive because he is on oxygen. We already turn down his oxygen from 4 L to 2 L. My goal is to keep him satting 88-90% with as little oxygen as possible Recheck-RT place BiPAP and put him on 30% FiO2. He could not tolerate the mask because it was rubbing his eyes and he took it off. He refuses to wear it. Recheck-patient is still alert. He is watching the news. He says he is breathing okay right now. Oxygen sat about 92% on 2 L so turned him down to 1 L. Oxygen sat now 89-90%. Discussed with patient care provider from and [facility], Dr. Almanza. He agrees with the patient's history of hypercapnic respiratory failure requiring intubation last year and his elevated pCO2 today, there is concern for ongoing respiratory deterioration. Intensive this would recommend that we do a trial of heated high-flow nasal cannula because with the additional positive airway pressure from that we might improve ventilation. Recheck-patient alert, watching the news. He is saturating about 89% on 1 L. Recheck-discussed with accepting hospitalist, Dr. Simmons from [facility]. Recheck-12 30. Repeat VBG shows slight improvement with pH up to 7.28 and pCO2 down to 69. Starting on high-flow nasal cannula now. Vital Signs Vital signs: Initial Vital Signs Pulse Rate 70 03/06/24 09:34 Blood Pressure 152/85 H 03/06/24 09:34 Blood Pressure Mean 107 H 03/06/24 09:34 Pulse Oximetry 92 03/06/24 09:34 Oxygen Delivery Method Nasal Cannula 03/06/24 09:34 Oxygen Flow Rate 3 03/06/24 09:34 Vital Signs Pulse Rate 70 03/06/24 09:34 Blood Pressure 152/85 H 03/06/24 09:34 Pulse Oximetry 92 03/06/24 09:34 Oxygen Delivery Method Nasal Cannula 03/06/24 09:34 Oxygen Flow Rate 3 03/06/24 09:34 Temperature 97.8 F 03/06/24 09:35 Pulse Rate 68 03/06/24 13:02 Respiratory Rate 20 03/06/24 09:35 Blood Pressure 118/85 03/06/24 13:02 Pulse Oximetry 93 03/06/24 13:02 Oxygen Delivery Method Room Air 03/06/24 09:35 Oxygen Flow Rate 3 03/06/24 09:34 Fraction of Inspired Oxygen 40 03/06/24 11:45 Medications Administered Medications: Discontinued Medications Generic Name Dose Route Start Last Admin Trade Name Freq PRN Reason Stop Dose Admin Albuterol 2.5 mg 03/06/24 12:08 03/06/24 12:37 Albuterol Sulfate 2.5 Mg/3 Ml Vial.Neb NEB 03/06/24 12:09 2.5 mg ONCE ONE Administration Albuterol/Ipratropium 1 neb 03/06/24 11:14 03/06/24 11:24 Iprat-Albut 0.5-2.5 Mg/3 Ml Neb IH 03/06/24 11:15 1 neb ONCE ONE Administration Ceftriaxone Sodium 1 gm/ 100 mls @ 200 mls/hr 03/06/24 11:16 03/06/24 11:32 Sodium Chloride IVPB 03/06/24 11:17 200 mls/hr ONCE ONE Administration Azithromycin 500 mg/ Sodium 255 mls @ 255 mls/hr 03/06/24 11:16 03/06/24 12:36 Chloride IVPB 03/06/24 11:17 255 mls/hr ONCE ONE Administration Methylprednisolone Sodium Succinate 125 mg 03/06/24 11:14 03/06/24 11:24 Methylprednisolone Sod Succ 62.5 Mg/Ml (125) IVP 03/06/24 11:15 125 mg ONCE ONE Administration Medical Decision Making MDM Narrative Medical decision making narrative: 68-year-old male with a complex past medical history presents to the ER today by EMS with shortness of breath, generalized weakness and fatigue, was hypoxic down into the mid 70s on room air at home, now in the low 90s after neb and on oxygen. 1. Differential for his shortness of breath is broad. He has been somewhat weak and a little bit short of breath with mild cough for at least a couple of days at home. History is a bit vague. COVID/influenza/RSV PCR is negative. Chest x-ray is very difficult to read because of his body habitus but cannot completely rule out the possibility for infiltrates in the lower lungs. Started on Rocephin and Zithromax for possible community-acquired pneumonia. Consider possible CHF with his chest x-ray. BNP is indeterminate 1100. Per report from [facility] he does have a history of a moderately low EF. However he is not showing any signs of new peripheral edema in his legs or marked hypertension suggesting acute hypertensive CHF requiring CPAP or nitro drip. Blood pressure is normal. Hold off on diuretics for now. Consider possible wheezing and COPD. He apparently was wheezy per medics and got a DuoNeb. On my exam he is not moving much air in the left base but is not otherwise wheezing. VBG shows CO2 retention suggestive of possible bronchospasm. We did administer additional nebs and steroids. He also has an elevated BMI which could cause obesity related hypoventilation syndrome. Last year he had a pCO2 of 65 with a normal pH suggesting sitting he has a chronic CO2 retainer. We made efforts to minimize his supplemental oxygen to keep his respiratory drive going. VBG today shows a pCO2 of 75 with a pH is 726. We put the patient on BiPAP to try to about optimize his ventilation to improve his pCO2. He could not tolerate that. After discussion with patient care provider will try him on high-flow nasal cannula which might help lessen some of his work of breathing and help and ventilate Her at this point he is alert, repeat VBG shows a slightly improving pCO2. He is not showing signs of worsening hypercarbia or declining mental status where he is going to lose his airway eminently. No indication for emergent intubation. However he has a history of a fairly precipitous decline last year when he had COVID and would be at risk for decline again. He would be best served to be admitted at a hospital where there are pulmonology and patient care provider capacity should that become necessary. Discussed with patient care provider from [facility], Dr. Almanza, who agrees he is appropriate for transfer. Right now he does not need an ICU bed. Dr. Almanza was suggest either step-down or tele floor with monitoring. They are currently no step-down units available. He is accepted by the hospitalist from [facility], Dr. Simmons, to the tele floor. Patient is agreeable to transfer to [place] when a bed is available. 2. EKG shows bifascicular block but no definite ischemia. Initial troponin is normal. 3. Low risk for PE. He is on apixaban for stroke prophylaxis with AFib. Abnormal PT INR suggest he probably has been taking it. His body habitus is too large to fit into our CT scanner so could not obtain CT PA here at [place]. Since he seems to be therapeutically anticoagulated on apixaban will hold off on Lovenox for now. 4. BUN is slightly elevated at 42. Creatinine 1.1. Will hold off on additional IV fluids given potential for some pulmonary edema potential risk of worsening respiratory function. Lab Data Labs: Lab Results 03/06/24 03/06/24 03/06/24 Range/Units 09:55 10:15 12:20 WBC 4.86 (4.50-11.00) K/uL RBC 5.09 (4.30-5.90) m/uL Hgb 11.9 L (13.5-17.5) gm/dL Hct 43.7 (37.0-53.0) % MCV 86 (80-100) fL MCH 23 L (26-34) pg MCHC 27 L (32-36) gm/dL RDW Coeff of Asael 19.5 H (11.5-15.5) % Plt Count 162 (140-440) K/uL Neut % (Auto) 63.6 (42.0-72.0) % Lymph % (Auto) 20.8 (20-44) % Davidson % (Auto) 10.1 (0.0-11.0) % Eos % (Auto) 3.9 (0.0-7.0) % Baso % (Auto) 0.8 (0.0-3.0) % Neut # (Auto) 3.09 (1.7-7.0) K/uL Lymph # (Auto) 1.01 (0.90-2.90) K/uL Davidson # (Auto) 0.50 (0.00-0.90) K/UL Eos # (Auto) 0.19 (0.00-0.50) K/uL Baso # (Auto) 0.04 (0.00-0.30) K/uL Abs Immat Gran (auto) 0.04 (0.00-0.30) K/uL Imm/Tot Granulo (auto) 0.8 % INR 1.20 H (0.91-1.10) VBG pH 7.266 L 7.283 L (7.32-7.43) VBG pCO2 75 H* 69 H* (40-50) mmHG VBG pO2 37.0 48.6 H (25-47) mmHG VBG HCO3 34 H 33 H (21-28) mmol/L Sodium 141 (135-149) mmol/L Potassium 5.1 (3.6-5.1) mmol/L Chloride 102 (96-114) mmol/L Carbon Dioxide 34 H (20-32) mmol/L Anion Gap 5 L (7-15) mEq/L BUN 42 H (7-30) mg/dL Creatinine 1.1 (0.5-1.5) mg/dL Estimated Creat Clear 81.10 Estimated GFR 74 ml/min Glucose 120 H (60-115) mg/dL Lactate 1.5 (0.5-1.9) mmol/L Calcium 8.9 (8.4-10.6) mg/dL Troponin I < 0.01 L (0.01-0.04) ng/mL NT-Pro-B Natriuret Pep 1100 pg/mL SARS-CoV-2 (PCR) Negative SARS-CoV-2 (Negative) Influenza Type A (PCR) Negative PCR FLU A (Negative) Influenza Type B (PCR) Negative PCR FLU B (Negative) RSV (PCR) Negative PCR RSV (Negative) Imaging Data Chest x-ray: Attestation: I have reviewed the pertinent imaging results. My impression: bilateral opacities but limited by body habitus. Radiologist's impression: IMPRESSION: Body habitus and low lung volumes significantly limits interpretation. There is probable moderate pulmonary edema and bibasal pleural effusions versus consolidation. Consider further evaluation with chest CT if it would change clinical management ECG Data Attestation: I personally reviewed and interpreted this ECG as follows: Interpretation: Normal sinus rhythm with first-degree AV block and premature atrial contractions Rate: 66 OK: 236 QRS axis: Right bundle-branch block. Normal QRS axis. ST segment/T wave: No ST segment elevation. QTc: 488 Discharge Plan Discharge Clinical Impression: Acute exacerbation of chronic obstructive pulmonary disease, Respiratory failure with hypoxia and hypercapnia Patient Disposition: [facility] Prescriptions: No Action metformin 500 mg tablet 1,000 mg PO BID carvedilol 12.5 mg tablet 12.5 mg PO BID amiodarone 200 mg tablet 200 mg PO DAILY spironolactone 25 mg tablet 25 mg PO DAILY acetic acid 0.25 % solution 1 irrig irrigation Q6H PRN Patient Comments: SOAK TO OPEN WOUNDS ONCE DAILY pravastatin 20 mg tablet 20 mg PO NIGHTLY Eliquis 5 mg tablet 5 mg PO BID Entresto 49-51 mg tablet 1 tab PO BID sulfamethoxazole-trimethoprim [Bactrim DS] 800-160 mg tablet 1 tab PO BID Qty: 10 0RF (DME) Accu-Chek SmartView Test Strip Strip MISCELLANEOUS DAILY albuterol sulfate 90 mcg/actuation HFA aerosol inhaler 2 puff INHALATION Q4H PRN (Reason: wheezing) Ozempic 0.25 mg or 0.5 mg (2 mg/3 mL) pen injector 0.25 mg subcut .weekly Stand Alone Forms: [employer] Info Instructions
--- NOTE | 2024-03-06 09:51 | CRLHL7_ITS ---
For Patients: As a result of the Century Cures Act, medical imaging exams and procedure reports are released immediately into your electronic medical record. You may view this report before your referring provider. If you have questions, please contact your health care provider. INDICATION: Dyspnea, hypoxia, diminished lung sounds in the left base TECHNIQUE: Chest 2 views. COMPARISON: 11/25/2022 FINDINGS: Cardiovascular and mediastinum: Similar cardiomegaly and prominence of the mediastinum Lungs and pleural spaces: Body habitus and low lung volumes significantly limits interpretation. There is probable moderate pulmonary edema and bibasal pleural effusions versus consolidation. Bones and soft tissues: No significant findings. IMPRESSION: Body habitus and low lung volumes significantly limits interpretation. There is probable moderate pulmonary edema and bibasal pleural effusions versus consolidation. Consider further evaluation with chest CT if it would change clinical management Dictated by Suri Carnes MD @ 03/06/2024 11:29:12 AM (Electronically Signed)
[2024-03-06 10:27] LABS: HCO3 VBG 34 mmol/L (21-28); Lactate* 1.5 mmol/L (0.5-1.9); pH VBG 7.266 (7.32-7.43)
[2024-03-06 10:28] LABS: Basophils Absolute Auto 0.04 K/uL (0.00-0.30); Basophils Percent Auto 0.8 % (0.0-3.0); Eosinophils Absolute Auto 0.19 K/uL (0.00-0.50); Eosinophils Percent Auto 3.9 % (0.0-7.0); Hematocrit 43.7 % (37.0-53.0); Hemoglobin* 11.9 gm/dL (13.5-17.5); Immature Granulocytes Abs Auto 0.04 K/uL (0.00-0.30); Immature Granulocytes Pct Auto 0.8 %; Lymphocytes Absolute Auto 1.01 K/uL (0.90-2.90); Lymphocytes Percent Auto 20.8 % (20-44); Mean Corpuscular HGB Conc 27 gm/dL (32-36); Mean Corpuscular Hemoglobin 23 pg (26-34); Mean Corpuscular Volume 86 fL (80-100); Monocytes Percent Auto 10.1 % (0.0-11.0); Neutrophils Absolute Auto 3.09 K/uL (1.7-7.0); Neutrophils Percent Auto 63.6 % (42.0-72.0); Platelet Count* 162 K/uL (140-440); RDW Coefficient of Variation % 19.5 % (11.5-15.5); Red Blood Count 5.09 m/uL (4.30-5.90); White Blood Count* 4.86 K/uL (4.50-11.00)
[2024-03-06 10:30] LABS: PCO2 VBG 75 mmHG (40-50); Slide Review Reflex No
[2024-03-06 10:44] LABS: Chloride* 102 mmol/L (96-114); Potassium* 5.1 mmol/L (3.6-5.1); Sodium* 141 mmol/L (135-149)
[2024-03-06 10:46] LABS: Creatinine* 1.1 mg/dL (0.5-1.5); Estimated Glomerular Filt Rate 74 ml/min
[2024-03-06 10:47] LABS: Anion Gap 5 mEq/L (7-15); Blood Urea Nitrogen* 42 mg/dL (7-30); Calcium* 8.9 mg/dL (8.4-10.6); Carbon Dioxide* 34 mmol/L (20-32); Glucose* 120 mg/dL (60-115)
[2024-03-06 11:06] LABS: NT Pro B Type NatriureticPept* 1100 pg/mL; Troponin I* < 0.01 ng/mL (0.01-0.04)
[2024-03-06 11:11] LABS: PCR FLU A Negative PCR FLU A (Negative); PCR FLU B Negative PCR FLU B (Negative); PCR RSV Negative PCR RSV (Negative); SARS PCR* Negative SARS-CoV-2 (Negative)
[2024-03-06] MEDS: METHYLPREDNISOLONE SOD SUCC 62.5 MG/ML (125) 125 MG IVP (11:24)
[2024-03-06] MEDS: IPRAT-ALBUT 0.5-2.5 MG/3 ML NEB 1 NEB IH (11:24)
--- OUTSIDE RECORDS SUMMARY | 2024-03-06 11:24 | XMS_ITS | Clinical Summary ---
Author Organization [employer] [facility] Address [place], [place] [address] Care Team Providers Care Geriatric Nurse Assistant Name Role Phone Maxwell Brumfield MD Unavailable [phone] Pushpa Meier DO Primary Care Provider Nurses, Advanced Heart Failure Unavailable + [facility] [place] Unavailable [phone] Allergies No known active allergies Medications Medication Sig Dispensed Refills Start Date End Date Status acetaminophen (TYLENOL) 500 mg capsuleIndications: pain Take 2 capsules. by mouth every 6 hours if needed. Max acetaminophen dose: 4000mg in 24 hrs. Indications: pain 0 8 Active durable medical equipment (DME)Indications:De pendent edema Sock aid 1 Each 9 Active medical supply, miscellaneous (GRADUATED COMPRESSION STOCKINGS)Indicatio ns:Edema, unspecified type For personal use. Length: calf Strength: 20-30 mmHg Circumference in cm: For calf: Ankle 14, Calf 23, Ankle to calf length 20. 2 Packet 6 9 Active Alginate Dressing 2 X 2 bndgIndications:Ulc er of right calf, unspecified ulcer stage (HC) Apply topically to affected area(s). 20 Each 1 Active blood sugar diagnostic (Accu-Chek SmartView Test Strip) stripIndications:Un controlled type 2 diabetes mellitus with hyperglycemia (HC) Dispense test strips covered by the patient insurance. Test 3 times per day. 300 Each 3 1 Active ketoconazole 2% shampoo (NIZORAL) 2 % shampooIndications: Scalp psoriasis SHAMPOO THE HAIR THOROUGHLY EACH DAY FOR 3 DAYS 120 mL 3 3 Active nystatin powder (Nyamyc) powderIndications:V enous stasis dermatitis of both lower extremities APPLY EXTERNALLY TO THE AFFECTED AREA TWO TIMES A DAY 60 g 12 3 Active Pike Tar 1 % shampooIndications: Scalp psoriasis Apply to hair and scalp, rinse, repeat, leave on 5 minutes, rinse again. Use twice weekly for 2 weeks then once weekly as needed. 177 mL 3 4 Active blood sugar diagnostic (Blood Glucose Test) stripIndications:Ty pe 2 diabetes mellitus without complication, without long-term current use of insulin (HC) Test 1 times per day. ACCU CHEK SMART VIEW. As covered by ins 100 Each 3 4 Active lancets (Accu-Chek FastClix Lancing Dev)Indications:Typ e 2 diabetes mellitus with hypoglycemia without coma, without long-term current use of insulin (HC) Test 3 times per day. 100 Each 5 4 Active WalkerIndications:V enous stasis dermatitis of both lower extremities,Morbid obesity (HC) Bariatric Walker with front wheels for home use. 1 Each 4 Active albuterol HFA (PRO-AIR; VENTOLIN; PROVENTIL) 90 mcg/actuation inhalerIndications: Chronic cough,Shortness of breath,Acute bronchitis, unspecified organism INHALE 2 PUFFS BY MOUTH EVERY 4 HOURS NEEDED FOR SHORTNESS OF BREATH/WHEEZING 18 g 4 Active blood-glucose meterIndications:Un controlled type 2 diabetes mellitus with hyperglycemia (HC) Dispense meter covered by pts insurance. 1 Each 4 Active zinc sulfate 50 mg zinc (220 mg) capsuleIndications: Venous ulcer of right leg (HC) Take 1 Capsule (220 mg) by mouth once daily. 90 Capsule 1 4 Active apixaban (Eliquis) 5 mg tabletIndications:A typical atrial flutter (HC) Take 1 Tablet (5 mg) by mouth two times daily. 180 Tablet 3 4 Active pravastatin (PRAVACHOL) 20 mg tabletIndications:H eart failure, unspecified HF chronicity, unspecified heart failure type (HC),Mixed hyperlipidemia Take 1 Tablet (20 mg) by mouth at bedtime. 90 Tablet 3 4 Active amiodarone (CORDARONE) 200 mg tabletIndications:P AF (paroxysmal atrial fibrillation) (HC) TAKE 1 TABLET(200 MG) BY MOUTH DAILY 90 Tablet 1 4 Active ammonium lactate 12 % lotionIndications:T ype 2 diabetes mellitus without complication, without long-term current use of insulin (HC),Venous stasis dermatitis of both lower extremities,Fissure s in skin of both feet Apply topically to affected area(s) two times daily. 396 g 5 4 Active spironolactone (ALDACTONE) 25 mg tabletIndications:C hronic diastolic heart failure (HC) Take 1 Tablet (25 mg) by mouth once daily. 90 Tablet 3 4 Active dapagliflozin propanediol (Farxiga) 10 mg tablet Take 1 Tablet (10 mg) by mouth once daily. BMP labs in 2 weeks after starting. 90 Tablet 3 4 Active sacubitril-valsarta n (ENTRESTO 49 MG-51 MG TABLET) 49-51 mg tabletIndications:C hronic diastolic heart failure (HC) Take 1 Tablet by mouth two times daily. 180 Tablet 3 4 Active metoprolol tartrate (LOPRESSOR) 25 mg tabletIndications:C hronic diastolic heart failure (HC),Acute on chronic heart failure, unspecified heart failure type (HC) TAKE 1 TABLET BY MOUTH TWICE DAILY 180 Tablet 3 4 Active docusate (COLACE) 100 mg capsuleIndications: Constipation, acute Take 1 Capsule (100 mg) by mouth 2 times daily if needed for Constipation. 180 Capsule 3 4 Active furosemide (LASIX) 40 mg tabletIndications:C hronic diastolic heart failure (HC),Venous ulcer of right leg (HC) Take 2 Tablets (80 mg) by mouth two times daily. 360 Tablet 3 4 Active metFORMIN (GLUCOPHAGE) 500 mg tabletIndications:T ype 2 diabetes mellitus without complication, without long-term current use of insulin (HC) Take 2 Tablets (1,000 mg) by mouth two times daily with meals. 360 Tablet 1 4 Active traMADoL (ULTRAM) 100 mg tabletIndications:P oor dentition Take 1 Tablet (100 mg) by mouth every 6 hours if needed (pain). 30 Tablet 4 Active docusate (COLACE) 100 mg capsuleIndications: Constipation, acute Take 1 capsule by mouth 2 times daily if needed for Constipation. 60 capsule 2 1 02/16/20 24 Discontinu ed(Reorder (E-cancel not sent)) BiPapIndications:OS A (obstructive sleep apnea) BIPAP machine for home use at pressure: max iPAP 20 cmw, min EPAP 10cmw , full face mask x1/3month with a full face cushion x1/mo. Length of Need: 99 months; Frequency of use: Daily 1 Each 3 02/16/20 Discontinu ed(*Allerg ic/Adverse Rxn/Side Effects) furosemide (LASIX) 40 mg tabletIndications:C hronic diastolic heart failure (HC),Venous ulcer of right leg (HC),Acute on chronic heart failure, unspecified heart failure type (HC) Take 1.5 Tablets (60 mg) by mouth two times daily. 274 Tablet 3 4 02/16/20 Discontinu ed(*Medica tion adjustment ) metFORMIN (GLUCOPHAGE) 500 mg tabletIndications:T ype 2 diabetes mellitus without complication, without long-term current use of insulin (HC) Take 2 Tablets (1,000 mg) by mouth two times daily with meals. 360 Tablet 1 4 02/16/20 Discontinu ed(Reorder (E-cancel not sent)) traMADoL (ULTRAM) 100 mg tablet Take by mouth. 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 Degenerative disc disease, lumbar 07/05/2019 Ulcer of right calf 07/05/2019 Ulcer of left calf 07/05/2019 Lymphedema 06/10/2019 Enlarged LA (left atrium) 08/01/2018 Paroxysmal atrial fibrillation 09/13/2016 Atypical atrial flutter 09/13/2016 JOHNATHON, 04/14/2016, AHI 32 04/28/2016 Personal history of colonic polyps 07/26/2012 Diabetes mellitus, type 2 07/05/2012 Unspecified essential hypertension 05/06/2006 Resolved Problems Problem Noted Date Diagnosed Date Resolved Date Acute respiratory failure with hypoxia 11/27/2022 12/15/2022 Anticoagulation monitoring, DOAC 06/12/2020 09/10/2022 Anticoagulation monitoring, INR range 2-3 04/16/2020 06/11/2020 Sepsis 06/01/2019 12/15/2022 Traumatic rhabdomyolysis 06/01/201909/2022 Hypoglycemia 06/01/2019 12/15/2022 Acute renal failure with tubular necrosis 06/01/2019 12/15/2022 Vascular insufficiency 07/17/201812/15 Encounters Date Type Department Care Team Description 03/06/2024 Home Care Visit [facility] [address] [place] [address] Aura Meyer, RN CARE COORDINATION 03/02/2024 9:30 AM DELPHI DEVELOPER Home Care Visit [facility] [address] [place] [address] Aura Meyer, RN SN - HOME VISIT 02/29/2024 9:30 AM DELPHI DEVELOPER Home Care Visit [facility] [address] [place] [address] Aura Meyer, RN SN - HOME VISIT 02/24/2024 9:00 AM DELPHI DEVELOPER Home Care Visit [facility] [address] [place] [address] Aura Meyer, RN SN - HOME VISIT 02/22/2024 9:00 AM DELPHI DEVELOPER Home Care Visit [facility] [address] [place] [address] Aura Meyer, RN SN - HOME VISIT 02/17/2024 9:00 AM DELPHI DEVELOPER Home Care Visit [facility] [address] [place] [address] Bettie Templeton LPN GASKET NOTCHER - HOME VISIT 02/17/[address] [phone] Pushpa Meier DO Results (Callback request ) 02/17/[address] [phone] Pushpa Meier DO Questions (Return call) 02/17/[address] [phone] Pushpa Meier DO Prior Authorization (TraMADoL 100 mg tablet APPROVED (11/19/2023-02/16/2025) ) 02/16/2024 7:30 AM DELPHI DEVELOPER Office Visit [address] [phone] Pushpa Meier DO Diabetes 02/16/2024 Telephone [facility] [address] [phone] Maxwell Brumfield MD 02/15/2024 10:30 AM DELPHI DEVELOPER Home Care Visit [facility] [address] [place] [phone] Bettie Templeton LPN GASKET NOTCHER - HOME VISIT 02/15/2024 Travel 02/14/[address] [address] Pushpa Meier, Medication Management (apixaban (Eliquis) 5 mg tablet) 02/11/2024 Plan of Care Documentation [facility] [address] [place] [phone] 02/10/2024 9:30 AM CDT Home Care Visit [facility] [address] [place] [phone] Aura Meyer, TIAN SN - OASIS RECERTIFICATION 02/08/2024 9:30 AM CDT Home Care Visit [facility] [address] [place] [phone] Aura Meyer, TIAN SN - HOME VISIT 02/03/2024 9:00 AM CDT Home Care Visit [facility] [address] [place] [phone] Aura Meyer, TIAN SN - HOME VISIT 02/01/2024 8:00 AM CDT Home Care Visit [facility] [address] [place] [phone] Aura Meyer, TIAN SN - HOME VISIT 02/01/[address] [phone] Pushpa Meier, Form 01/27/2024 9:30 AM CDT Home Care Visit [facility] [address] [place] [phone] Bettie Templeton LPN G[employer]CHER - HOME VISIT 01/27/2024 Travel 01/26/2024 Nurse Triage [facility] [address] [facility] [address] [place] [phone] Kerrie Islas RN Error-please disregard (Error Entry - Please Disregard This Encounter) 01/26/2024 Telephone [facility] [address] [phone] Maxwell Brumfield MD Follow Up (Spironolactone (Aldactone) tolerance. BMP due) 01/26/2024 Refill [facility] [address] [phone] Maxwell Brumfield MD Refill Request (Metoprolol Tartrate) 01/25/2024 9:00 AM CDT Home Care Visit [facility] [address] [place] [address] Aura Meyer RN SN - HOME VISIT 01/24/2024 Orders Only [facility] [address] [phone] Maxwell Brumfield MD <No scans attached> 01/23/2024 Orders Only [facility] [address] [phone] Maxwell Brumfield MD <No scans attached> 01/20/2024 3:30 PM CDT Home Care Visit [facility] [address] [place] [address] Haley Pierre RN SN - HOME VISIT 01/18/2024 2:00 PM CDT Home Care Visit [facility] [address] [place] [address] Aura Meyer RN SN - HOME VISIT 01/18/2024 10:00 AM CDT Office Visit [facility] [address] [phone] Maxwell Brumfield MD CV Heart Failure Est (Appointment Note// CHF ANNUAL F/U. LABS DONE IN [facility]. //) 01/18/2024 Telephone [facility] [address] [facility] [address] [place] [address] Maxwell Brumfield MD Follow Up (Entresto/SGLT2 PAs) 01/18/2024 Travel 01/13/2024 10:15 AM CDT Home Care Visit [facility] [address] [place] [phone] Bettie Templeton LPN GASKET NOTCHER - HOME VISIT 01/11/2024 9:00 AM CDT Home Care Visit [facility] [address] [place] [phone] Bettie Templeton LPN G[employer]ET [employer]CHER - HOME VISIT 01/09/2024 Home Care Visit [facility] [address] [place] [phone] Aura Meyer RN CARE COORDINATION 01/06/2024 10:45 AM CDT - 01/06/2024 1:00 PM CDT Emergency [facility] [address] [place] [address] Jeny Moreira MD Encounter for wound re-check (Primary Dx); Infestation by lex Discharge Disposition: Home Self Care 01/06/2024 9:30 AM CDT Home Care Visit [facility] [address] [place] [phone] Angelita Crawford RN SN - HOME VISIT 01/06/2024 Travel 01/06/2024 Refill [facility] [address] [facility] [address] [place] [address] Maxwell Brumfield MD Refill Request (Pravastatin) 01/05/2024 Orders Only [facility] [address] [facility] [address] [place] [address] Maxwell Brumfield MD Lab (/) 01/04/2024 1:30 PM CDT Home Care [place] [address] [place] [address] Aura Meyer, RN SN - HOME VISIT 01/03/2024 [address] [place] [address] HardeepPushpa, DO Questions (Lab due) 12/30/2023 9:00 AM CDT Home Care Visit [facility] [address] [place] [phone] Aura Meyer, RN SN - HOME VISIT 12/28/2023 9:00 AM CDT Home Care Visit [facility] [address] [place] [phone] Mitzi Crawford RN SN - HOME VISIT 12/23/2023 8:15 AM CDT Home Care Visit [facility] [address] [place] [phone] Haley Pierre RN SN - HOME VISIT 12/21/2023 9:00 AM CDT Home Care Visit [facility] [address] [place] [phone] Bettie Templeton LPN G[employer]ER - HOME VISIT 12/16/2023 9:00 AM CDT Home Care Visit [facility] [address] [place] [phone] Bettie Templeton LPN G[employer]ET [employer]CHER - HOME VISIT 12/09/2023 9:00 AM CDT Home Care Visit [facility] [address] [place] [phone] Aura Meyer, RN SN - OASIS RECERTIFICATION 12/09/2023 Plan of Care Documentation [facility] [address] [place] [phone] 12/07/2023 8:45 AM CDT Home Care Visit [facility] [address] [place] [phone] Haley Pierre, TIAN SN - HOME VISIT from Last 3 Months Immunizations Name Administration Dates Next Due COVID-19 vaccine (Moderna 100mcg/0.5mL) PF, MDV 11/05/2021,03/12/2021,07/23/2020,06/25 COVID-19 vaccine (Pfizer-Bio NTech 30mcg/0.3mL) 12YO+ BIVALENT PF, MDV 02/17/2022 HepA-HepB (Twinrix) 05/06/2015,09/20/2014,2014 Influenza A (H1N1), Inactivated 05/20/2009 Influenza Virus, Unspecified 01/09/2019,02/26/20 06,02/22/2003 Influenza, IIV3 (Age >=3 years) 01/10/2009,02/09 Influenza, IIV4 01/07/2022,,01/29/2019,01/06,02/06/2017,02/27/2016,01/07/2015 ,02/04/2014 Influenza, Inactivated AIIV4 (Age 65+ Years) Preserv Free 12/23/2022 Influenza, Inactivated IIV3 (Age 65+ Years) Preserv Free 02/07/2024 Influenza,CCIIV4 PRESERV FREE 03/12/2021 Pneumococcal Poly,23-Valent (Pneumovax) 10/30/2020 RSV, Bivalent Vaccine Recons tituted (Abrysvo 120MCG/0.5mL) 03/31/2023 Td (Age >=7 Years) 04/16/2005 Tdap 01/07/2015 Zoster (Shingrix-RZV, recombinant) 09/26/2017, Family History Medical History Relation Name Comments Diabetes Brother 3 Cancer Brother 4 Leukemia Cancer-prostate Father Diabetes Mother Hypertension Mother Relation Name Status Comments Brother 1 (Age 508/22/09) Brother 2 (Age 1997) Brother 3 Brother 4 Daughter Alive Father (Age 1999) Maternal Grandfather Maternal Grandmother Mother (Age 2001) Paternal Grandfather Paternal Grandmother Sister Alive Son Alive Social History Tobacco Use Types Packs/Day Years Used Date Smoking Tobacco: Never Passive Smoke Exposure: Past Smokeless Tobacco: Never Tobacco Cessation:Counseling Given: Yes Passive Exposure Comments:mom and dad smoked in child sims life Alcohol Use Standard Drinks/Week Comments Not Currently 0 (1 standard drink = 0.6 oz pur e alcohol) PHQ-2 Answer Date Recorded PHQ-2 TOTAL SCORE 0 10/06/2023 Social Connections Answer Date Recorded Do you often feel lonely or isolated from those around you? 0 10/06/2023 Financial Resource Strain Answer Date R ecorded Difficulty of Paying Living Expenses 3 10/06/2023 Difficulty of Paying Living Expenses Not on file 10/06/2023 Food Insecurity Answer Date Recorded Do you worry your food will run out before you are able to buy more? 1 10/06/2023 Transportation Needs Answer Date Record ed Does lack of transportation keep you from medica l appointments? 1 10/06/2023 Does lack of transportation keep you from work, meetings or getting things that you need? 1 10/06/2023 Housing Stability Answer Date Recorded What is your housing situation today? 1 10/06/2023 Sex and Gender Information Value Date Recorded Sex Assigned at Not on file Gender Identity Not on file Sexual Orientation Not on file Obstetrics History Last Filed Vital Signs Vital Sign Reading Time Taken Comments Blood Pressure 118/78 03/02/2024 10:14 AM DELPHI DEVELOPER Pulse 59 03/02/2024 10:14 AM DELPHI DEVELOPER Temperature 36.6 C (97.9 F) 03/02/2024 10:14 AM DELPHI DEVELOPER Respiratory Rate 18 02/29/2024 10:3 7 AM DELPHI DEVELOPER Oxygen Saturation 91% 03/02/2024 10: 14 AM DELPHI DEVELOPER Inhaled Oxygen Concentration - - Weight 232.2 kg (511 lb 12.8 oz) 02/16/2024 7:57 AM DELPHI DEVELOPER Height 182.9 cm (6' 0.01) 01/18/2024 1 0:07 AM CDT Body Mass Index 69.4 01/18/2024 10:07 AM CDT Plan of Treatment Upcoming Encounters Date Type Department Care Team (Late st Contact Info) Description 03/14/2024 4:00 AM DELPHI DEVELOPER Home Care Visit [facility] [address] [facility] [place] [phone] Aura Meyer RN 03/16/2024 4:00 AM DELPHI DEVELOPER Home Care Visit [facility] [address] [facility] [phone] Aura Meyer, TIAN 03/16/2024 7:30 AM DELPHI DEVELOPER Orders Only [address] [phone] Lucia Sera 03/21/2024 4:00 AM DELPHI DEVELOPER Home Care Visit [facility] [address] [place] [address], [place] [address] Aura Meyer, RN 03/23/2024 4:00 AM DELPHI DEVELOPER Home Care Visit [facility] [address] [place] [address], [place] [address] Aura Meyer, TIAN 03/28/2024 4:00 AM DELPHI DEVELOPER Home Care Visit [facility] [address] [place] [address], [place] [address] Aura Meyer, TIAN 03/30/2024 4:00 AM DELPHI DEVELOPER Home Care Visit [facility] [address] [place] [phone] Aura Meyer, TIAN 04/04/2024 4:00 AM DELPHI DEVELOPER Home Care Visit [facility] [address] [place] [phone] Aura Meyer, TIAN 04/06/2024 4:00 AM DELPHI DEVELOPER Home Care Visit [facility] [address] [place] [phone] Aura Meyer, RN 08/20/2024 7:30 AM CDT Office Visit [address] [phone] Pushpa Meier, [address] [address] Health Maintenance Due Date Last Done Comments Colonoscopy through age 75 07/21/2017 07/21/2012 Medicare Wellness for age 65+ 2022 Depression screening for age 12+ 10/05/2024 10/06/2023, 01/07/2022, 04/21/2020, Additional history exists Tetanus booster 01/07/2025 01/07/2015, 04/16/2005 BMI (ht and wt on same day) for age 18+ 01/17/2025 01/18/2024, 01/19/2023, 12/23/2022, Additional history exists Pneumococcal series for age 65+ (2 of 2 - PCV) 10/09/2025 10/30/2020 Postponed from 10/30/2021 (Provider discretion) Lipids for age 45-75 10/05/2028 10/06/2023, 08/20/2022, 05/01/2021, Additional history exists Tdap Completed 01/07/2015 Zoster (shingles) series for age 50+ Completed 09/26/2017, 07/12/2017 Hepatitis C screening for age 18-79 Completed 10/30/2020 COVID-19 vaccine series Completed 02/07/20 24, 03/25/2023, 02/17/2022, Additional history exists Influenza for age 65+ Completed 02/07/2024 , 12/23/2022, 01/07/2022, Additional history exists Goals Goal Patient Goal Type Associated Problems Recent Progress Patient-Stated? Author BLOOD PRESSURE - MAINTAINS BP less than 140/90 Blood Pressure No Devan Arroyo MD Procedures Procedure Name Priority Date/Time Associated Diagnosis Comments PRO-BNP Routine 02/16/2024 7:53 AM DELPHI DEVELOPER URINE ALBUMIN TO CREATININE RATIO, RANDOM Routine 02/16/2024 7:53 AM DELPHI DEVELOPER Type 2 diabetes mellitus without complication, without long-term current use of insulin (HC) BASIC METABOLIC PANEL Routine 02/16/2024 7:30 AM DELPHI DEVELOPER Chronic diastolic heart failure (HC) PRO-BNP Routine 02/16/2024 7:30 AM DELPHI DEVELOPER Chronic diastolic heart failure (HC) BASIC METABOLIC PANEL STAT 01/06/2024 11:34 AM CDT RED CELL MORPHOLOGY STAT 01/06/2024 1 1:33 AM CDT PLATELET ESTIMATE STAT 01/06/2024 11: 33 AM CDT CBC WITH AUTO DIFFERENTIAL STAT 01/06/2024 11:33 AM CDT CBC WITH AUTO DIFFERENTIAL STAT 01/06/2024 11:33 AM CDT LACTATE VENOUS STAT 01/06/2024 11:33 AM CDT BASIC METABOLIC PANEL Routine 01/06/2024 7:26 AM CDT Chronic diastolic heart failure (HC) PRO-BNP Routine 01/06/2024 7:24 AM CDT Chronic diastolic heart failure (HC) CBC WITH AUTO DIFFERENTIAL Routine 01/06/2024 7:22 AM CDT BASIC METABOLIC PANEL Routine 01/06/2024 7:22 AM CDT Type 2 diabetes mellitus with hypoglycemia without coma, without long-term current use of insulin (HC) HEMOGLOBIN A1C Routine 01/06/2024 7:22 AM CDT Type 2 diabetes mellitus with hypoglycemia without coma, without long-term current use of insulin (HC) LIPID PANEL W REFLEX MEASURED LDL Routine 10/06/2023 7:49 AM CDT Type 2 diabetes mellitus without complication, without long-term current use of insulin (HC) ANTI HCV Add On 10/30/2020 8:30 AM CDT Need for hepatitis C screening test from Last 3 Months or Most Recently Relevant to Health Maintenance Results * (ABNORMAL) URINE ALBUMIN TO CREATININE RATIO, RANDOM (02/16/2024 7:53 AM DELPHI DEVELOPER) CREATININE, RANDOM URINE 109 20 - 320 mg/dL [facility] ALBUMIN, URINE 11.1 See Note: mg/dL [facility] Comment: Reference Range: Reference Range Not established ALBUMIN/CREATININE RATIO, RANDOM URINE 102(H) <30 mg/g creat [facility] Comment: The ADA defines abnormalities in albumin excretion as follows: Albuminuria Category Result (mg/g creatinine) Normal to Mildly increased <30 Moderately increased 30-299 Severely increased > OR = 300 The ADA recommends that at least two of three specimens collected within a 3-6 month period be abnormal before considering a patient to be within a diagnostic category. Urine URINE SPECIMEN / Unknown 02/16/2024 7:53 AM DELPHI DEVELOPER 02/16/2024 7:54 AM DELPHI DEVELOPER Narrative [facility] - 02/17/2024 5:30 AM DELPHI DEVELOPER INCLUDES STAT TESTING; ROUTINE TESTING TO FOLLOW. Pushpa Meier DO URINE Performing Organization Address [facility] Co de Phone Number eriQoo [place] [id number] [place] [address], [employer] [facility] [place] [address] [place] [phone] * (ABNORMAL) PRO-BNP (02/16/2024 7:53 AM DELPHI DEVELOPER) Only the most recent of3 resultswithin the time period is included. NT PROBNP 345(H) <125 pg/mL [facility] 02/16/2024 7:53 AM DELPHI DEVELOPER 02/16/2024 7:54 AM DELPHI DEVELOPER Narrative [facility] [place] - 02/18/2024 12:44 PM DELPHI DEVELOPER INCLUDES STAT TESTING; ROUTINE TESTING TO FOLLOW. Maxwell Brumfield MD SEND OUTS Performing Organization Address City/[facility]/ZIP Co de Phone Number eriQoo [place] [address] [address] [employer] [place] [address], [employer] [facility] [address] [address] [place], [place] [address] * (ABNORMAL) BASIC METABOLIC PANEL (02/16/2024 7:30 AM DELPHI DEVELOPER) Only the most recent of4 resultswithin the time period is included. SODIUM 139 136 - 145 mmol/L 02/16/2024 8:24 AM DELPHI DEVELOPER [facility] POTASSIUM 5.2(H) 3.5 - 5.1 mmol/L 02/16/2024 8:24 AM [facility] CHLORIDE 100 98 - 107 mmol/L 02/16/2024 8:24 AM [facility] CO2,TOTAL 30(H) 22 - 29 mmol/L 02/16/2024 8:24 AM [facility] ANION GAP 9 5 - 18 02/16/2024 8:24 AM [facility] GLUCOSE 116(H) 70 - 99 mg/dL 02/16/2024 8:24 AM [facility] CALCIUM 9.4 8.8 - 10.4 mg/dL 02/16/2024 8:24 AM [facility] Comment: Reference ranges for this test were updated on 02/14/2024 to reflect our healthy population more accurately. Reference range changes are not retroactively applied to results, but previous results using the same methodology can be interpreted in the context of the new reference range. BUN 25(H) 8 - 23 mg/dL 02/16/2024 8:24 AM [facility] CREATININE 1.20 0.70 - 1.20 mg/dL 02/16/2024 8:24 AM [facility] BUN/CREAT RATIO 21(H) 10 - 20 8:24 AM [facility] eGFR 67(L) >90 mL/min/1. 73m2 02/16/2024 8:24 AM [facility] Comment:As of 2021, eG FR is calculated by the CKD-EPI creatinine equation without race adjustment. eGFR can be influenced by muscle mass, exercise, and diet. The reported eGFR is an estimation only and is only applicable if the renal function is stable. Blood BLOOD SPECIMEN / Unknown [facility] / Unknown 02/16/2024 7:30 AM DELPHI DEVELOPER 02/16/2024 7:30 AM DELPHI DEVELOPER Maxwell Brumfield MD CHEMISTRY [facility] [address] [place] [address] * (ABNORMAL) CBC WITH AUTO DIFFERENTIAL (01/06/2024 11:33 AM [facility]) Only the most recent of2 resultswithin the time period is included. WHITE BLOOD COUNT 6.6 4.5 - 11.0 thou/cu mm 01/06/2024 12:04 PM [facility] RED BLOOD COUNT 4.69 4.30 - 5.90 mil/cu mm 01/06/2024 12:04 PM [facility] HEMOGLOBIN 12.0(L) 13.5 - 17.5 g/dL 01/06/2024 12:04 PM [facility] HEMATOCRIT 41.0 37.0 - 53.0 % 01/06/2024 12:04 PM [facility] MCV 87 80 - 100 fL 01/06/2024 12:04 PM [facility] MCH 25.6(L) 26.0 - 34.0 pg 01/06/2024 12:04 PM [facility] MCHC 29.3(L) 32.0 - 36.0 g/dL 01/06/2024 12:04 PM [facility] RDW 20.0(H) 11.5 - 15.5 % 01/06/2024 12:04 PM [facility] PLATELET COUNT 173 140 - 440 thou/cu mm 01/06/2024 12:04 PM [facility] MPV 10.1 6.5 - 11.0 fL 01/06/2024 12:04 PM [facility] % NEUT 66.3 % 01/06/2024 12:04 PM [facility] % LYMPH 17.4 % 01/06/2024 12:04 PM [facility] % MONO 11.8 % 01/06/2024 12:04 PM [facility] % EOS 3.9 % 01/06/2024 12:04 PM [facility] % BASO 0.6 % 01/06/2024 12:04 PM [facility] ABSOLUTE NEUTROPHILS 4.4 1.7 - 7.0 thou/cu mm 01/06/2024 12:04 PM CDT [facility] ABSOLUTE LYMPHOCYTES 1.2 0.9 - 2.9 thou/cu mm 01/06/2024 12:04 PM CDT [facility] ABSOLUTE MONOCYTES 0.8 <0.9 thou/cu mm 01/06/2024 12:04 PM CDT [facility] ABSOLUTE EOSINOPHILS 0.3 <0.5 thou/cu mm 01/06/2024 12:04 PM CDT [facility] ABSOLUTE BASOPHILS 0.0 <0.3 thou/cu mm 01/06/2024 12:04 PM CDT [facility] Blood BLOOD SPECIMEN / Unknown Venipuncture / Unknown 01/06/2024 11:33 AM CDT 01/06/2024 11:36 AM CDT Jeny Moreira MD HEMAT OLOGY Performing Organization Address City/[facility]/ZIP Co de Phone Number [facility] [address] [place] [address] * (ABNORMAL) RED CELL MORPHOLOGY (01/06/2024 11:33 AM CDT) Pathologist Dewey Ortega 01/06/2024 12:04 PM CDT [facility] RBC COMMENT Present(A) RBC morphology appears normal, RBC morphology within normal limits for newborns. 01/06/2024 12:04 PM CDT [facility] LARGE PLATELETS Present 12:04 PM CDT [facility] Blood BLOOD SPECIMEN / Unknown Venipuncture / Unknown 01/06/2024 11:33 AM CDT 01/06/2024 11:36 AM CDT Jeny Moreira MD HEMAT OLOGY [facility] [address] [place] [address] * PLATELET ESTIMATE (01/06/2024 11:33 AM CDT) Pathologist [facility] PLATELET ESTIMATE Adequate Adequate, No estimate 01/06/2024 12:04 PM CDT [facility] Blood BLOOD SPECIMEN / Unknown Venipuncture / Unknown 01/06/2024 11:33 AM CDT 01/06/2024 11:36 AM CDT Jeny Moreira MD HEMAT OLOGY Performing Organization Address [facility]/ZIP Co de Phone Number [facility] [address] [place] [address] * LACTATE VENOUS (01/06/2024 11:33 AM CDT) [facility] LACTATE,VENOUS 1.7 0.5 - 2.0 mmol/L 01/06/2024 11:56 AM CDT [facility] Blood BLOOD SPECIMEN / Unknown Venipuncture / Unknown 01/06/2024 11:33 AM CDT 01/06/2024 11:36 AM CDT Jeny Moreira MD CHEMI STRY Performing Organization Address [facility] de Phone Number [facility] [address] [place] [address] * (ABNORMAL) HEMOGLOBIN A1C (01/06/2024 7:22 AM CDT) [facility] HEMOGLOBIN A1C 7.2(H) <5.7 % of total Hgb [facility] Comment: For someone without known diabetes, a hemoglobin A1c value of 6.5% or greater indicates that they may have diabetes and this should be confirmed with a follow-up test. For someone with known diabetes, a value <7% indicates that their diabetes is well controlled and a value greater than or equal to 7% indicates suboptimal control. A1c targets should be individualized based on duration of diabetes, age, comorbid conditions, and other considerations. Currently, no consensus exists regarding use of hemoglobin A1c for diagnosis of diabetes for children. This test was performed on the David tiffanie c503 platform. Effective 06/15/23, a change in test platforms from the Bender Audio Video Mechanic to the David tiffanie c503 may have shifted HbA1c results compared to historical results. Based on laboratory validation testing conducted at [facility], the David platform relative to the Bender platform had an average increase in HbA1c value of < or = 0.3%. This difference is within accepted variability established by the National Glycohemoglobin Standardization Program. Note that not all individuals will have had a shift in their results and direct comparisons between historical and current results for testing conducted on different platforms is not recommended. Blood BLOOD SPECIMEN / Unknown 01/06/2024 7:22 AM CDT 01/06/2024 7:23 AM CDT Narrative [facility] - 01/07/2024 5:37 AM CDT FASTING:YES FASTING: YES Pushpa Meier DO CHEMISTRY eriQoo [facility] [address] [place] [address], [employer] [facility], [place] [address] [place] [address] * (ABNORMAL) LIPID PANEL W REFLEX MEASURED LDL (10/06/2023 7:49 AM CDT) [facility] CHOLESTEROL,TOTAL 149 100 - 199 mg/dL 10/06/2023 8:45 AM [facility] Comment: Cholesterol, Total Reference Ranges Desirable <200 mg/dL Borderline 200-239 mg/dL High >=240 mg/dL TRIGLYCERIDES 183(H) <150 mg/dL 10/06/2023 8:45 AM [facility] HDL CHOLESTEROL 31(L) >40 mg/dL 8:45 AM [facility] NON-HDL CHOLESTEROL 118 <145 mg/dl 10/06/2023 8:45 AM [facility] CHOL/HDL RATIO 4.81(H) <4.50 10/06/2023 8:45 AM [facility] LDL CHOLESTEROL 81 <=130 mg/dL 10/06/2023 8:45 AM [facility] VLDL CHOLESTEROL 37(H) <=30 mg/dL 10/06/2023 8:45 AM CDT [facility] PROVIDER ORDERED STATUS RANDOM 10/06/2023 8:45 AM CDT [facility] Blood BLOOD SPECIMEN / Unknown Venipuncture / Unknown 10/06/2023 7:49 AM CDT 10/06/2023 7:49 AM CDT Pushpa Meier DO CHEMISTRY Performing Organization Address City/[facility]/ZIP Co de Phone Number [facility] [address] [place] [address] * ANTI HCV (10/30/2020 8:30 AM CDT) HEPATITIS C ANTIBODY Non-React asif Non-React asif 10/30/2020 5:23 PM CDT [facility] Comment:Antibodies to HCV no t detected; does not exclude the possibility of exposure to HCV. Blood BLOOD SPECIMEN / Unknown [facility] / Unknown 10/30/2020 8:30 AM CDT 10/30/2020 8:32 AM CDT Pushpa Meier DO SEND OUTS Performing Organization Address City/[facility]/ZIP Co de Phone Number [facility] [address] [place] [address], from Last 3 Months or Most Recently Relevant to Health Maintenance Advance Directives Documents on File Type Date Recorded Patient Electrolysis Investigator Expl anation POLST 01/31/2023 POLST 12/23/2022 2:28 PM POLST * Full Code (Latest Code Status on File) Date Activated Date Inactivated Comments 12/09/2022 4:30 PM 12/18/2022 12:25 PM Question Answer Comments Code Status Discussion: Reviewed Preferences * Full Code Date Activated Date Inactivated Comments 11/27/2022 9:10 AM 12/09/2022 4:13 PM Question Answer Comments Code Status Discussion: Reviewed Preferences * Full Code Date Activated Date Inactivated Comments 11/26/2022 1:26 AM 11/27/2022 9:10 AM Question Answer Comments Code Status Discussion: Unable to Assess Preferences, Provider to review later * Full Code Date Activated Date Inactivated Comments 06/01/2019 11:26 PM 06/05/2019 4:21 PM * Full Code Date Activated Date Inactivated Comments 09/28/2016 6:48 AM 09/28/2016 12:28 PM Care Teams Geriatric Nurse Assistant Relationship Specialty Start Date End Date Pushpa Meier DO [address] [place] [address] PCP - General Internal Medicine 01/17/20 Maxwell Brumfield MD [address] [address] Cardiology - CHF Cardiovascular Disease 01/17/20 Nurses, Advanced Heart Failure [address] [place] [address] Advanced Heart Failure/Transplant Card 09/24/22 [facility] [address] [place] [address] 12/18/22
[2024-03-06] MEDS: cefTRIAXone 1 GM in 0.9 % SODIUM CHLORIDE Mini-bag 100 ML IVPB (11:32)
[2024-03-06 12:31] LABS: HCO3 VBG 33 mmol/L (21-28); PO2 VBG 48.6 mmHG (25-47); pH VBG 7.283 (7.32-7.43)
[2024-03-06 12:34] LABS: PCO2 VBG 69 mmHG (40-50)
[2024-03-06] MEDS: AZITHROMYCIN 500 MG in 0.9 % SODIUM CHLORIDE 250 ml 250 ML 255 MG IVPB (12:36)
[2024-03-06] MEDS: ALBUTEROL SULFATE 2.5 MG/3 ML VIAL.NEB NEB (12:37)
--- OUTSIDE RECORDS SUMMARY | 2024-03-06 12:46 | XMS_ITS | Referral Summary ---
Author Organization [place] Address [address] [place] [address] Care Team Providers Care Fixed Income Manager Name Role Phone Radha Rubio NP Primary Care Provider Allergies No known active allergies Medications atenolol (TENORMIN) 100 MG tablet Take 100 mg by mouth daily Active apixaban ANTICOAGULANT (ELIQUIS) 2.5 MG tablet Take 2.5 mg by mouth 2 times daily Active lisinopril (PRINIVIL/ZESTRIL) 10 MG tablet Take 10 mg by mouth daily Active Social History Tobacco Use Types Packs/Day Years Used Date Smoking Tobacco: Never Assessed Adolescent Education Answer Date Record ed Getting School Help Needed Not on file 12/31 Sex and Gender Information Value Date Recorded Sex Assigned at Not on file Legal Sex Male 9:49 AM MOUNTAIN GUIDE Gender Identity Not on file Sexual Orientation Not on file Last Filed Vital Signs Vital Sign Reading Time Taken Comments Blood Pressure 144/87 04/18/2018 9:56 AM MOUNTAIN GUIDE Pulse 67 04/18/2018 9:56 AM MOUNTAIN GUIDE Temperature 36.8 C (98.3 F) 04/18/2018 9:56 AM MOUNTAIN GUIDE Respiratory Rate 22 04/18/2018 9:56 AM MOUNTAIN GUIDE Oxygen Saturation 93% 04/18/2018 11:00 AM MOUNTAIN GUIDE Inhaled Oxygen Concentration - - Weight 222.3 kg (490 lb) 04/18/2018 9:56 AM MOUNTAIN GUIDE Height 195.6 cm (6' 5) 04/18/2018 9:56 AM MOUNTAIN GUIDE Body Mass Index 58.11 04/18/2018 9:56 AM MOUNTAIN GUIDE Plan of Treatment Not on file Care Teams Fixed Income Manager Relationship Specialty Start Date End Date Radha Rubio NP [address] [place], [place] [address]myra JOSE ANGEL , [place] [address] [facility] - General 04/18/18
--- OUTSIDE RECORDS SUMMARY | 2024-03-06 12:46 | XMS_ITS | Clinical Summary ---
Author Organization [place] Address [address] [place] [address] Care Team Providers Care Experimental Outboard Motors Mechanic Name Role Phone Radha Rubio NP Primary Care Provider [phone] Allergies No known active allergies Medications atenolol [...] on file Legal Sex Male 9:49 AM OUTSIDE DEALER SALES REPRESENTATIVE Gender Identity Not on file Sexual Orientation Not on file Last Filed Vital Signs Vital Sign Reading Time Taken Comments Blood Pressure 144/87 04/18/2018 9:56 AM OUTSIDE DEALER SALES REPRESENTATIVE Pulse 67 04/18/2018 9:56 AM OUTSIDE DEALER SALES REPRESENTATIVE Temperature 36.8 C (98.3 F) 04/18/2018 9:56 AM OUTSIDE DEALER SALES REPRESENTATIVE Respiratory Rate 22 04/18/2018 9:56 AM OUTSIDE DEALER SALES REPRESENTATIVE Oxygen Saturation 93% 04/18/2018 11:00 AM OUTSIDE DEALER SALES REPRESENTATIVE Inhaled Oxygen Concentration - - Weight 222.3 kg (490 lb) 04/18/2018 9:56 AM OUTSIDE DEALER SALES REPRESENTATIVE Height 195.6 cm (6' 5) 04/18/2018 9:56 AM OUTSIDE DEALER SALES REPRESENTATIVE Body Mass Index 58.11 04/18/2018 9:56 AM OUTSIDE DEALER SALES REPRESENTATIVE Plan of Treatment Not on file Care Teams Experimental Outboard Motors Mechanic Relationship Specialty Start Date End Date Radha Rubio NP [address] [place], [place] [address]myra JOSE ANGEL , [place] [address] [facility] - General 04/18/18
--- OUTSIDE RECORDS SUMMARY | 2024-03-06 12:46 | XMS_ITS | Clinical Summary ---
Author Organization [facility] Address [place], [place] [address] Care Team Providers Care Visual And Stock Associate Name Role Phone Maxwell Brumfield MD Unavailable [phone] Pushpa Meier DO Primary Care Provider Nurses, Advanced Heart Failure Unavailable + [facility] [place] Unavailable Allergies No known active allergies Medications Medication [...] A DAY 60 g 12 3 Active [place] Tar 1 % shampooIndications: Scalp psoriasis Apply [...] Date Type Department Care Team Description 03/06/2024 8:30 PM PORTFOLIO CONSULTANT Hospital Encounter [facility] [address] [place] [address] Zeferino, Silviaw Hospitalists Of 03/06/2024 Home Care Visit [facility] [address] [place] [address] Aura Meyer RN CARE COORDINATION 03/02/2024 9:30 AM PORTFOLIO CONSULTANT Home Care Visit [facility] [address] [place] [address] Aura Meyer, RN SN - HOME VISIT 02/29/2024 9:30 AM PORTFOLIO CONSULTANT Home Care Visit [facility] [address] [place] [address] Aura Meyer, RN SN - HOME VISIT 02/24/2024 9:00 AM PORTFOLIO CONSULTANT Home Care Visit [facility] [address] [place] [address] Aura Meyer, RN SN - HOME VISIT 02/22/2024 9:00 AM PORTFOLIO CONSULTANT Home Care Visit [facility] [address] [place] [address] Aura Meyer, TIAN SN - HOME VISIT 02/17/2024 9:00 AM PORTFOLIO CONSULTANT Home Care Visit [facility] [address] [place] [address] Bettie Templeton LPN ENTRY LEVEL MARKETING REPRESENTATIVE - HOME VISIT 02/17/[address] [address] Pushpa Meier DO Results (Callback request ) 02/17/[address] [phone] Pushpa Meier DO Questions (Return call) 02/17/[address] [address] Pushpa Meier DO Prior Authorization (TraMADoL 100 mg tablet APPROVED (11/19/2023-02/16/2025 )) 02/16/2024 7:30 AM PORTFOLIO CONSULTANT Office Visit [address] [phone] Pushpa Meier DO Diabetes 02/16/2024 [place] [facility] [address] [address] Maxwell Brumfield MD 02/15/2024 10:30 AM PORTFOLIO CONSULTANT Home Care Visit [facility] [address] [place] [address], [place] [address] Bettie Templeton LPN ENTRY LEVEL MARKETING REPRESENTATIVE - HOME VISIT 02/15/2024 Travel 02/14/[address] [address] Pushpa Meier DO Medication Management (apixaban (Eliquis) 5 mg tablet) 02/11/2024 Plan of Care Documentation [facility] [address] [place] [address], [place] [address] 02/10/2024 9:30 AM CDT Home Care Visit [facility] [address] [place] [phone] Aura Meyer, TIAN SN - OASIS RECERTIFICATION 02/08/2024 9:30 AM CDT Home Care Visit [facility] [address] [place] [phone] Aura Meyer, TIAN SN - HOME VISIT 02/03/2024 9:00 AM CDT Home Care Visit [facility] [address] [place] [phone] Aura Meyer, TIAN SN - HOME VISIT 02/01/2024 8:00 AM CDT Home Care Visit [facility] [address] [place] [phone] Aura Meyer, TIAN SN - HOME VISIT 02/01/[address] [phone] Pushpa Meier, Form 01/27/2024 9:30 AM CDT Home Care Visit [facility] [address] [place] [phone] Bettie Templeton LPN ENTRY LEVEL MARKETING REPRESENTATIVE - HOME VISIT 01/27/2024 Travel 01/26/2024 Nurse Triage [facility] [address] [facility] [address] [place] [address] Kerrie Islas RN Error-please disregard (Error Entry - Please Disregard This Encounter) 01/26/2024 Telephone [facility] [address] [facility] [address] [place] [phone] Maxwell Brumfield MD Follow Up (Spironolactone (Aldactone) tolerance. BMP due) 01/26/2024 Refill [facility] [address] [address] Maxwell Brumfield MD Refill Request (Metoprolol Tartrate) 01/25/2024 9:00 AM CDT Home Care Visit [address] [address] Aura Meyer RN SN - HOME VISIT 01/24/2024 Orders Only [facility] [address] [address] Maxwell Brumfield MD <No scans attached> 01/23/2024 Orders Only [facility] [address] [facility] [address] [place] [phone] Maxwell Brumfield MD <No scans attached> 01/20/2024 3:30 PM CDT Home Care Visit [address] [address] Haley Pierre RN SN - HOME VISIT 01/18/2024 2:00 PM CDT Home Care Visit [address] [address] Aura Meyer, TIAN SN - HOME VISIT 01/18/2024 10:00 AM CDT Office [place] [facility] [address] [address] Maxwell Brumfield MD CV Heart Failure Est (Appointment Note// CHF ANNUAL F/U. LABS DONE IN [facility]. //) 01/18/2024 Telephone [facility] [address] [facility] [address] [place] [phone] Maxwell Brumfield MD Follow Up (Entresto/SGLT2 PAs) 01/18/2024 Travel 01/13/2024 10:15 AM CDT Home Care Visit [facility] [address] [place] [phone] Bettie Templeton LPN ENTRY LEVEL MARKETING REPRESENTATIVE - HOME VISIT 01/11/2024 9:00 AM CDT Home Care Visit [facility] [address] [place] [phone] Bettie Templeton LPN ENTRY LEVEL MARKETING REPRESENTATIVE - HOME VISIT 01/09/2024 Home Care Visit [facility] [address] [place] [phone] Aura Meyer, TIAN CARE COORDINATION 01/06/2024 10:45 AM CDT - 01/06/2024 1:00 PM CDT Emergency [facility] [address] [place] [address] Jeny Moreira MD Encounter for wound re-check (Primary Dx); Infestation by maggots Discharge Disposition: Home Self Care 01/06/2024 9:30 AM CDT Home Care Visit [facility] [address] [place] [phone] Angelita Crawford RN SN - HOME VISIT 01/06/2024 Travel 01/06/2024 Refill [facility] [address] [facility] [address] [place] [address] Maxwell Brumfield MD Refill Request (Pravastatin) 01/05/2024 Orders Only [facility] [address] [facility] [address] [place] [address] Maxwell Brumfield MD Lab (/) 01/04/2024 1:30 PM CDT Home Care Visit [facility] [address] [place] [phone] Aura Meyer, RN SN - HOME VISIT 01/03/[address] [phone] Pushpa Meier, DO Questions (Lab due) 12/30/2023 9:00 AM CDT Home Care Visit [facility] [address] [place] [phone] Aura Meyer, TIAN SN - HOME VISIT 12/28/2023 9:00 AM CDT Home Care Visit [facility] [address] [place] [phone] Mitzi Crawford, TIAN SN - HOME VISIT 12/23/2023 8:15 AM CDT Home Care Visit [facility] [address] [place] [phone] Haley Pierre RN SN - HOME VISIT 12/21/2023 9:00 AM CDT Home Care Visit [facility] [address] [place] [phone] Bettie Templeton LPN ENTRY LEVEL MARKETING REPRESENTATIVE - HOME VISIT 12/16/2023 9:00 AM CDT Home Care Visit [facility] [address] [place] [phone] Bettie Templeton LPN ENTRY LEVEL MARKETING REPRESENTATIVE - HOME VISIT 12/09/2023 9:00 AM CDT Home Care Visit [facility] [address] [place] [phone] Aura Meyer, RN SN - OASIS RECERTIFICATION 12/09/2023 Plan of Care Documentation [facility] [address] [place] [phone] 12/07/2023 8:45 AM CDT Home Care Visit [facility] [address] [place] [address] Haley Pierre, RN SN - HOME VISIT from Last 3 [...] Comments Blood Pressure 118/78 03/02/2024 10:14 AM PORTFOLIO CONSULTANT Pulse 59 03/02/2024 10:14 AM PORTFOLIO CONSULTANT Temperature 36.6 C (97.9 F) 03/02/2024 10:14 AM PORTFOLIO CONSULTANT Respiratory Rate 18 02/29/2024 10:3 7 AM PORTFOLIO CONSULTANT Oxygen Saturation 91% 03/02/2024 10: 14 AM PORTFOLIO CONSULTANT Inhaled Oxygen Concentration - - Weight 232.2 kg (511 lb 12.8 oz) 02/16/2024 7:57 AM PORTFOLIO CONSULTANT Height 182.9 cm (6' 0.01) 01/18/2024 1 0:07 AM CDT Body Mass Index 69.4 01/18/2024 10:07 AM CDT Plan of Treatment Upcoming Encounters Date Type Department Care Team (Late st Contact Info) Description 03/14/2024 4:00 AM PORTFOLIO CONSULTANT Home Care Visit [facility] [address] [place] [address] Aura Meyer, TIAN 03/16/2024 4:00 AM PORTFOLIO CONSULTANT Home Care Visit [facility] [address] [place] [address] Aura Meyer, TIAN 03/16/2024 7:30 AM PORTFOLIO CONSULTANT Orders Only [address] [phone] Lucia, Sera 03/21/2024 4:00 AM PORTFOLIO CONSULTANT Home Care Visit [facility] [address] [place] [phone] Aura Meyer, TIAN 03/23/2024 4:00 AM PORTFOLIO CONSULTANT Home Care Visit [facility] [address] [place] [phone] Aura Meyer, TIAN 03/28/2024 4:00 AM PORTFOLIO CONSULTANT Home Care Visit [facility] [address] [place] [phone] Aura Meyer, TIAN 03/30/2024 4:00 AM PORTFOLIO CONSULTANT Home Care Visit [facility] [address] [place] [phone] Aura Meyer, RN 04/04/2024 4:00 AM PORTFOLIO CONSULTANT Home Care Visit [facility] [address] [place] [phone] Aura Meyer, TIAN 04/06/2024 4:00 AM PORTFOLIO CONSULTANT Home Care Visit [facility] [address] [place] [phone] Aura Meyer, TIAN 08/20/2024 7:30 AM CDT Office Visit [address] [phone] Pushpa Meier, [address] [address] Health Maintenance Due Date Last Done Comments [...] Diagnosis Comments PRO-BNP Routine 02/16/2024 7:53 AM PORTFOLIO CONSULTANT URINE ALBUMIN TO CREATININE RATIO, RANDOM Routine 02/16/2024 7:53 AM PORTFOLIO CONSULTANT Type 2 diabetes mellitus without complication, without long-term current use of insulin (HC) BASIC METABOLIC PANEL Routine 02/16/2024 7:30 AM PORTFOLIO CONSULTANT Chronic diastolic heart failure (HC) PRO-BNP Routine 02/16/2024 7:30 AM PORTFOLIO CONSULTANT Chronic diastolic heart failure (HC) BASIC METABOLIC [...] TO CREATININE RATIO, RANDOM (02/16/2024 7:53 AM PORTFOLIO CONSULTANT) CREATININE, RANDOM URINE 109 20 - 320 mg/dL [facility]ustam[facility] ALBUMIN, URINE 11.1 See Note: mg/dL [facility] Comment: Reference Range: Reference Range Not [...] URINE SPECIMEN / Unknown 02/16/2024 7:53 AM PORTFOLIO CONSULTANT 02/16/2024 7:54 AM PORTFOLIO CONSULTANT Narrative [facility] - 02/17/2024 5:30 AM PORTFOLIO CONSULTANT INCLUDES STAT TESTING; ROUTINE TESTING TO FOLLOW. Pushpa Meier DO URINE Performing Organization Address City/[facility]/ZIP Co de Phone Number Dials [facility] [address] [place] [address], [facility] [address] [place] [address] * (ABNORMAL) PRO-BNP (02/16/2024 7:53 AM PORTFOLIO CONSULTANT) Only the most recent of3 resultswithin the time period is included. NT PROBNP 345(H) <125 pg/mL [facility] 02/16/2024 7:53 AM PORTFOLIO CONSULTANT 02/16/2024 7:54 AM PORTFOLIO CONSULTANT Narrative [facility] [place] - 02/18/2024 12:44 PM PORTFOLIO CONSULTANT INCLUDES STAT TESTING; ROUTINE TESTING TO FOLLOW. Maxwell Brumfield MD SEND OUTS [facility] [place] [address] [place] [address], [facility] [address] [place] [address] * (ABNORMAL) BASIC METABOLIC PANEL (02/16/2024 7:30 AM PORTFOLIO CONSULTANT) Only the most recent of4 resultswithin the time period is included. SODIUM 139 136 - 145 mmol/L 02/16/2024 8:24 AM [facility] POTASSIUM 5.2(H) 3.5 - 5.1 mmol/L 02/16/2024 8:24 AM [facility] CHLORIDE 100 98 - 107 mmol/L 02/16/2024 8:24 AM [facility] CO2,TOTAL 30(H) 22 - 29 mmol/L 02/16/2024 8:24 AM [facility] ANION GAP 9 5 - 18 02/16/2024 8:24 AM [facility] GLUCOSE 116(H) 70 - 99 mg/dL 02/16/2024 8:24 AM [facility] CALCIUM 9.4 8.8 - 10.4 mg/dL 02/16/2024 8:24 AM [facility] Comment: Reference ranges for this test were updated on 02/14/2024 to reflect our healthy population more accurately. Reference range changes are not retroactively applied to results, but previous results using the same methodology can be interpreted in the context of the new reference range. BUN 25(H) 8 - 23 mg/dL 02/16/2024 8:24 AM [facility] CREATININE 1.20 0.70 - 1.20 mg/dL 02/16/2024 8:24 AM [facility] BUN/CREAT RATIO 21(H) 10 - 20 8:24 AM [facility] eGFR 67(L) >90 mL/min/1. 73m2 02/16/2024 8:24 AM [facility] Comment:As of 2021, eG FR is calculated by the CKD-EPI creatinine equation without race adjustment. eGFR can be influenced by muscle mass, exercise, and diet. The reported eGFR is an estimation only and is only applicable if the renal function is stable. Blood BLOOD SPECIMEN / Unknown [facility] / Unknown 02/16/2024 7:30 AM PORTFOLIO CONSULTANT 02/16/2024 7:30 AM PORTFOLIO CONSULTANT Maxwell Brumfield MD CHEMISTRY [facility] [address] [place] [address] * (ABNORMAL) CBC WITH AUTO DIFFERENTIAL (01/06/2024 11:33 AM CDT) Only the most recent of2 resultswithin the time period is included. WHITE BLOOD COUNT 6.6 4.5 - 11.0 thou/cu mm 01/06/2024 12:04 PM [facility] RED BLOOD COUNT 4.69 4.30 - 5.90 mil/cu mm 01/06/2024 12:04 PM [facility] HEMOGLOBIN 12.0(L) 13.5 - 17.5 g/dL 01/06/2024 12:04 PM [facility] HEMATOCRIT 41.0 37.0 - 53.0 % 01/06/2024 12:04 PM [facility] MCV 87 80 - 100 fL 01/06/2024 12:04 PM [facility] MCH 25.6(L) 26.0 - 34.0 pg 01/06/2024 12:04 PM [facility] MCHC 29.3(L) 32.0 - 36.0 g/dL 01/06/2024 12:04 PM [facility] RDW 20.0(H) 11.5 - 15.5 % 01/06/2024 12:04 PM [facility] PLATELET COUNT 173 140 - 440 thou/cu mm 01/06/2024 12:04 PM [facility] MPV 10.1 6.5 - 11.0 fL 01/06/2024 12:04 PM [facility] % NEUT 66.3 % 01/06/2024 12:04 PM [facility] % LYMPH 17.4 % 01/06/2024 12:04 PM [facility] % MONO 11.8 % 01/06/2024 12:04 PM [facility] % EOS 3.9 % 01/06/2024 12:04 PM [facility] % BASO 0.6 % 01/06/2024 12:04 PM CDT [facility] ABSOLUTE NEUTROPHILS 4.4 1.7 - 7.0 thou/cu mm 01/06/2024 12:04 PM CDT [facility] ABSOLUTE LYMPHOCYTES 1.2 0.9 - 2.9 thou/cu mm 01/06/2024 12:04 PM CDT [facility] ABSOLUTE MONOCYTES 0.8 <0.9 thou/cu mm 01/06/2024 12:04 PM CDT [facility] ABSOLUTE EOSINOPHILS 0.3 <0.5 thou/cu mm 01/06/2024 12:04 PM T [facility] ABSOLUTE BASOPHILS 0.0 <0.3 thou/cu mm 01/06/2024 12:04 PM T [facility] Blood BLOOD SPECIMEN / Unknown Venipuncture / Unknown 01/06/2024 11:33 AM CDT 01/06/2024 11:36 AM CDT Jeny Moreira MD HEMAT OLOGY [facility] [address] [place] [address] * (ABNORMAL) RED CELL MORPHOLOGY (01/06/2024 11:33 AM CDT) ELLIPTOCYTES Few 01/06/2024 12:04 PM CDT [facility] RBC COMMENT Present(A) RBC morphology appears normal, RBC morphology within normal limits for newborns. 01/06/2024 12:04 PM CDT [facility] LARGE PLATELETS Present 12:04 PM CDT [facility] Blood BLOOD SPECIMEN / Unknown Venipuncture / Unknown 01/06/2024 11:33 AM CDT 01/06/2024 11:36 AM CDT Jeny Moreira MD HEMAT OLOGY [facility] [address] [place] [address] * PLATELET ESTIMATE (01/06/2024 11:33 AM CDT) [facility] PLATELET ESTIMATE Adequate Adequate, No estimate 01/06/2024 12:04 PM CDT [facility] Blood BLOOD SPECIMEN / Unknown Venipuncture / Unknown 01/06/2024 11:33 AM CDT 01/06/2024 11:36 AM CDT Jeny Moreira MD HEMAT OLOGY [facility] [address] [place] [address] * LACTATE VENOUS (01/06/2024 11:33 AM CDT) [facility] LACTATE,VENOUS 1.7 0.5 - 2.0 mmol/L 01/06/2024 11:56 AM CDT [facility] Blood BLOOD SPECIMEN / Unknown Venipuncture / Unknown 01/06/2024 11:33 AM CDT 01/06/2024 11:36 AM CDT Jeny Moreira MD CHEMI STRY [facility] [address] [place] [address] * (ABNORMAL) HEMOGLOBIN A1C (01/06/2024 7:22 AM CDT) [facility] HEMOGLOBIN A1C 7.2(H) <5.7 % of total Hgb [facility] Comment: For someone without known diabetes, [...] change in test platforms from the Bender Edge Runner to the David tiffanie c503 may have shifted HbA1c results compared to historical results. Based on laboratory validation testing conducted at [facility], the David platform relative to [...] AM CDT 01/06/2024 7:23 AM CDT Narrative [facility] - 01/07/2024 5:37 AM CDT FASTING:YES FASTING: YES Pushpa Meier DO CHEMISTRY [facility] [address] [place] [address], [address] [address] * (ABNORMAL) LIPID PANEL W REFLEX MEASURED LDL (10/06/2023 7:49 AM CDT) CHOLESTEROL,TOTAL 149 100 - 199 mg/dL 10/06/2023 8:45 AM [facility] Comment: Cholesterol, Total Reference Ranges Desirable <200 mg/dL Borderline 200-239 mg/dL High >=240 mg/dL TRIGLYCERIDES 183(H) <150 mg/dL 10/06/2023 8:45 AM [facility] HDL CHOLESTEROL 31(L) >40 mg/dL 8:45 AM [facility] NON-HDL CHOLESTEROL 118 <145 mg/dl 10/06/2023 8:45 AM [facility] CHOL/HDL RATIO 4.81(H) <4.50 10/06/2023 8:45 AM [facility] LDL CHOLESTEROL 81 <=130 mg/dL 10/06/2023 8:45 AM CDT [facility] VLDL CHOLESTEROL 37(H) <=30 mg/dL 10/06/2023 8:45 AM CDT [facility] PROVIDER ORDERED STATUS RANDOM 10/06/2023 8:45 AM CDT [facility] Blood BLOOD SPECIMEN / Unknown Venipuncture / Unknown 10/06/2023 7:49 AM CDT 10/06/2023 7:49 AM CDT Pushpa Meier DO CHEMISTRY [facility] [address] [place] [address] * ANTI HCV (10/30/2020 8:30 AM CDT) HEPATITIS C ANTIBODY Non-React asif Non-React asif 10/30/2020 5:23 PM CDT [facility] Comment:Antibodies to HCV no t detected; does not exclude the possibility of exposure to HCV. Blood BLOOD SPECIMEN / Unknown Butterfly / Unknown 10/30/2020 8:30 AM CDT 10/30/2020 8:32 AM CDT Pushpa Meier DO SEND OUTS [facility] [address] [place] [address], [place] from Last 3 Months or Most Recently Relevant to Health Maintenance Advance Directives Documents on File Type Date Recorded Patient Prop And Scenery Maker Expl anation POLST 01/31/2023 POLST 12/23/2022 2:28 [...] 6:48 AM 09/28/2016 12:28 PM Care Teams Visual And Stock Associate Relationship Specialty Start Date End Date Pushpa Meier DO [address] [place] [address] PCP - General Internal Medicine 01/17/20 Maxwell Brumfield MD [address] [address] Cardiology - CHF Cardiovascular Disease 01/17/20 Nurses, Advanced Heart Failure [address], [place] [address] Advanced Heart Failure/Transplant Card 09/24/22 [facility] [place] [address] [place] [address] 12/18/22
== END 2024-03-06 13:58 | disposition short-term general hospital (02) ==
PROVIDERS: Emergency Provider Emergency Medicine; PCP Internal Medicine
DX: J96.01 Acute respiratory failure with hypoxia (principal); J96.02 Acute respiratory failure with hypercapnia; J44.1 Chronic obstructive pulmonary disease with (acute) exacerbation
CPT/HCPCS: 36415; 71046; 80048; 82803; 83605; 83880; 84484; 85025; 85610; 87631; 93005; 94640; 94660; 96374; 96375; 99284; 99285; 99291; J0456; J0696; J2919; J7050

== ENCOUNTER 2024-03-06 13:35 | Outpatient (CLI) | payer MEDICARE, BC, SELFPAY ==
--- OUTSIDE RECORDS SUMMARY | 2024-03-07 09:28 | XMS_ITS | Referral Summary ---
Author Organization [facility] Address [address] [place] [address] Care Team Providers Care Clinical Trial Leader Name Role Phone Radha Rubio NP Primary Care Provider [phone] Allergies No known active allergies Medications atenolol [...] on file Legal Sex Male 9:49 AM LINEN TECH Gender Identity Not on file Sexual Orientation Not on file Last Filed Vital Signs Vital Sign Reading Time Taken Comments Blood Pressure 144/87 04/18/2018 9:56 AM LINEN TECH Pulse 67 04/18/2018 9:56 AM LINEN TECH Temperature 36.8 C (98.3 F) 04/18/2018 9:56 AM LINEN TECH Respiratory Rate 22 04/18/2018 9:56 AM LINEN TECH Oxygen Saturation 93% 04/18/2018 11:00 AM LINEN TECH Inhaled Oxygen Concentration - - Weight 222.3 kg (490 lb) 04/18/2018 9:56 AM LINEN TECH Height 195.6 cm (6' 5) 04/18/2018 9:56 AM LINEN TECH Body Mass Index 58.11 04/18/2018 9:56 AM LINEN TECH Plan of Treatment Not on file Care Teams Clinical Trial Leader Relationship Specialty Start Date End Date Radha Rubio NP [address] [place], [place] [address]myra JOSE ANGEL , [place] [address] [facility] - General 04/18/18
--- OUTSIDE RECORDS SUMMARY | 2024-03-07 09:28 | XMS_ITS | Clinical Summary ---
Author Organization [facility] Address [address] [place] [address] Care Team Providers Care Business Continuity Director Name Role Phone Radha Rubio NP Primary Care Provider [phone] Allergies No known active allergies Medications atenolol [...] on file Legal Sex Male 9:49 AM INFORMATION SYSTEMS ARCHITECT Gender Identity Not on file Sexual Orientation Not on file Last Filed Vital Signs Vital Sign Reading Time Taken Comments Blood Pressure 144/87 04/18/2018 9:56 AM INFORMATION SYSTEMS ARCHITECT Pulse 67 04/18/2018 9:56 AM INFORMATION SYSTEMS ARCHITECT Temperature 36.8 C (98.3 F) 04/18/2018 9:56 AM INFORMATION SYSTEMS ARCHITECT Respiratory Rate 22 04/18/2018 9:56 AM INFORMATION SYSTEMS ARCHITECT Oxygen Saturation 93% 04/18/2018 11:00 AM INFORMATION SYSTEMS ARCHITECT Inhaled Oxygen Concentration - - Weight 222.3 kg (490 lb) 04/18/2018 9:56 AM INFORMATION SYSTEMS ARCHITECT Height 195.6 cm (6' 5) 04/18/2018 9:56 AM INFORMATION SYSTEMS ARCHITECT Body Mass Index 58.11 04/18/2018 9:56 AM INFORMATION SYSTEMS ARCHITECT Plan of Treatment Not on file Care Teams Business Continuity Director Relationship Specialty Start Date End Date Radha Rubio NP [address] [place], [place] [address]myra JOSE ANGEL , [place] [address] [facility] - General 04/18/18
--- OUTSIDE RECORDS SUMMARY | 2024-03-07 09:28 | XMS_ITS | Clinical Summary ---
Author Organization [facility] Address [place], [place] [address] Care Team Providers Care Coding Consultant Name Role Phone Maxwell Brumfield MD Unavailable [phone] Pushpa Meier DO Primary Care Provider Nurses, Advanced Heart Failure Unavailable + [facility], [place] Unavailable Allergies No known active allergies Medications Medication Sig Dispensed Refills Start Date End Date Status acetaminophen (TYLENOL) 500 mg capsuleIndications :pain Take 2 capsules. by mouth every 6 hours if needed. Max acetaminophen dose: 4000mg in 24 hrs. Indications: pain 0 8 Suspended durable medical equipment (DME)Indications:D ependent edema Sock aid 1 Each 9 Suspended Additional Information medical supply, miscellaneous (GRADUATED COMPRESSION STOCKINGS)Indicati ons:Edema, unspecified type For personal use. Length: calf Strength: 20-30 mmHg Circumference in cm: For calf: Ankle 14, Calf 23, Ankle to calf length 20. 2 Packet 6 9 Suspended Additional Information docusate (COLACE) 100 mg capsuleIndications :Constipation, acute Take 1 capsule by mouth 2 times daily if needed for Constipation. 60 capsule 2 1 02/16/20 24 Discontinued (Reorder (E-cancel not sent)) Alginate Dressing 2 X 2 bndgIndications:Ul cer of right calf, unspecified ulcer stage (HC) Apply topically to affected area(s). 20 Each 1 Suspended Additional Information blood sugar diagnostic (Accu-Chek SmartView Test Strip) stripIndications:U ncontrolled type 2 diabetes mellitus with hyperglycemia (HC) Dispense test strips covered by the patient insurance. Test 3 times per day. 300 Each 3 1 Suspended Additional Information ketoconazole 2% shampoo (NIZORAL) 2 % shampooIndications :Scalp psoriasis SHAMPOO THE HAIR THOROUGHLY EACH DAY FOR 3 DAYS 120 mL 3 3 Suspended Additional Information BiPapIndications:O SA (obstructive sleep apnea) BIPAP machine for home use at pressure: max iPAP 20 cmw, min EPAP 10cmw , full face mask x1/3month with a full face cushion x1/mo. Length of Need: 99 months; Frequency of use: Daily 1 Each 3 02/16/20 24 Discontinued (*Allergic/A dverse Rxn/Side Effects) nystatin powder (Nyamyc) powderIndications: Venous stasis dermatitis of both lower extremities APPLY EXTERNALLY TO THE AFFECTED AREA TWO TIMES A DAY 60 g 12 3 Suspended Additional Information furosemide (LASIX) 40 mg tabletIndications: Chronic diastolic heart failure (HC),Venous ulcer of right leg (HC),Acute on chronic heart failure, unspecified heart failure type (HC) Take 1.5 Tablets (60 mg) by mouth two times daily. 274 Tablet 3 4 02/16/20 24 Discontinued (*Medication adjustment) [place] Tar 1 % shampooIndications :Scalp psoriasis Apply to hair and scalp, rinse, repeat, leave on 5 minutes, rinse again. Use twice weekly for 2 weeks then once weekly as needed. 177 mL 3 4 Suspended Additional Information blood sugar diagnostic (Blood Glucose Test) stripIndications:T ype 2 diabetes mellitus without complication, without long-term current use of insulin (HC) Test 1 times per day. ACCU CHEK SMART VIEW. As covered by ins 100 Each 3 4 Suspended Additional Information lancets (Accu-Chek FastClix Lancing Dev)Indications:Ty pe 2 diabetes mellitus with hypoglycemia without coma, without long-term current use of insulin (HC) Test 3 times per day. 100 Each 5 4 Suspended Additional Information WalkerIndications: Venous stasis dermatitis of both lower extremities,Morbid obesity (HC) Bariatric Walker with front wheels for home use. 1 Each 4 Suspended Additional Information albuterol HFA (PRO-AIR; VENTOLIN; PROVENTIL) 90 mcg/actuation inhalerIndications :Chronic cough,Shortness of breath,Acute bronchitis, unspecified organism INHALE 2 PUFFS BY MOUTH EVERY 4 HOURS NEEDED FOR SHORTNESS OF BREATH/WHEEZING 18 g 4 Suspended Additional Information blood-glucose meterIndications:U ncontrolled type 2 diabetes mellitus with hyperglycemia (HC) Dispense meter covered by pts insurance. 1 Each 4 Suspended Additional Information zinc sulfate 50 mg zinc (220 mg) capsuleIndications :Venous ulcer of right leg (HC) Take 1 Capsule (220 mg) by mouth once daily. 90 Capsule 1 4 Suspended Additional Information apixaban (Eliquis) 5 mg tabletIndications: Atypical atrial flutter (HC) Take 1 Tablet (5 mg) by mouth two times daily. 180 Tablet 3 4 Suspended Additional Information metFORMIN (GLUCOPHAGE) 500 mg tabletIndications: Type 2 diabetes mellitus without complication, without long-term current use of insulin (HC) Take 2 Tablets (1,000 mg) by mouth two times daily with meals. 360 Tablet 1 4 02/16/20 24 Discontinued (Reorder (E-cancel not sent)) pravastatin (PRAVACHOL) 20 mg tabletIndications: Heart failure, unspecified HF chronicity, unspecified heart failure type (HC),Mixed hyperlipidemia Take 1 Tablet (20 mg) by mouth at bedtime. 90 Tablet 3 4 Suspended Additional Information amiodarone (CORDARONE) 200 mg tabletIndications: PAF (paroxysmal atrial fibrillation) (HC) TAKE 1 TABLET(200 MG) BY MOUTH DAILY 90 Tablet 1 4 Suspended Additional Information ammonium lactate 12 % lotionIndications: Type 2 diabetes mellitus without complication, without long-term current use of insulin (HC),Venous stasis dermatitis of both lower extremities,Fissur es in skin of both feet Apply topically to affected area(s) two times daily. 396 g 5 4 Suspended Additional Information spironolactone (ALDACTONE) 25 mg tabletIndications: Chronic diastolic heart failure (HC) Take 1 Tablet (25 mg) by mouth once daily. 90 Tablet 3 4 Suspended Additional Information dapagliflozin propanediol (Farxiga) 10 mg tablet Take 1 Tablet (10 mg) by mouth once daily. BMP labs in 2 weeks after starting. 90 Tablet 3 4 Suspended Additional Information sacubitril-valsart an (ENTRESTO 49 MG-51 MG TABLET) 49-51 mg tabletIndications: Chronic diastolic heart failure (HC) Take 1 Tablet by mouth two times daily. 180 Tablet 3 4 Suspended Additional Information metoprolol tartrate (LOPRESSOR) 25 mg tabletIndications: Chronic diastolic heart failure (HC),Acute on chronic heart failure, unspecified heart failure type (HC) TAKE 1 TABLET BY MOUTH TWICE DAILY 180 Tablet 3 4 Suspended Additional Information traMADoL (ULTRAM) 100 mg tablet Take by mouth. 02/16/20 24 Discontinued (Reorder (E-cancel not sent)) docusate (COLACE) 100 mg capsuleIndications :Constipation, acute Take 1 Capsule (100 mg) by mouth 2 times daily if needed for Constipation. 180 Capsule 3 4 Suspended Additional Information furosemide (LASIX) 40 mg tabletIndications: Chronic diastolic heart failure (HC),Venous ulcer of right leg (HC) Take 2 Tablets (80 mg) by mouth two times daily. 360 Tablet 3 4 Suspended Additional Information metFORMIN (GLUCOPHAGE) 500 mg tabletIndications: Type 2 diabetes mellitus without complication, without long-term current use of insulin (HC) Take 2 Tablets (1,000 mg) by mouth two times daily with meals. 360 Tablet 1 4 Suspended Additional Information traMADoL (ULTRAM) 100 mg tabletIndications: Poor dentition Take 1 Tablet (100 mg) by mouth every 6 hours if needed (pain). 30 Tablet 4 Suspended Additional Information Active Problems Problem Noted Date Diagnosed Date Hypercapnic acidosis 03/06/2024 Hypoxic respiratory failure 03/06/2024 Type 2 diabetes mellitus wit h diabetic [...] Encounters Date Type Department Care Team Description 03/07/2024 Home Care Visit [facility] [address] [place] [address] Aura Meyer, HEALTH AND WELLNESS COACH NOTE 03/06/2024 2:49 PM GLASS SELECTOR - Present Hospital Encounter [facility] [address] [address] [facility] [facility] Hospitalists [facility], Nichelle Larsen MD 03/06/2024 Home Care Visit [facility] [address] [place] [phone] Aura Meyer, TIAN CARE COORDINATION 03/02/2024 9:30 AM GLASS SELECTOR Home Care Visit [facility] [address] [place] [phone] Aura Meyer, TIAN SN - HOME VISIT 02/29/2024 9:30 AM GLASS SELECTOR Home Care Visit [facility] [address] [place] [phone] Aura Meyer, TIAN SN - HOME VISIT 02/24/2024 9:00 AM GLASS SELECTOR Home Care Visit [facility] [address] [place] [phone] Aura Meyer, TIAN SN - HOME VISIT 02/22/2024 9:00 AM GLASS SELECTOR Home Care Visit [facility] [address] [place] [phone] Aura Meyer, TIAN SN - HOME VISIT 02/17/2024 9:00 AM GLASS SELECTOR Home Care Visit [facility] [address] [place] [phone] Bettie Templeton LPN FITNESS INSTRUCTOR - HOME VISIT 02/17/[address] [phone] Pushpa Meier, Results (Callback request ) 02/17/[address] [phone] Pushpa Meier DO Questions (Return call) 02/17/[address] [phone] Pushpa Meier DO Prior Authorization (TraMADoL 100 mg tablet APPROVED (11/19/2023-02/16/2025 )) 02/16/2024 7:30 AM GLASS SELECTOR Office Visit [address] [phone] Pushpa Meier, Diabetes 02/16/2024 Telephone [facility] [address] [facility] [address] [place] [phone] Maxwell Brumfield MD 02/15/2024 10:30 AM GLASS SELECTOR Home Care Visit [facility] [address] [place] [address] Bettie Templeton LPN FITNESS INSTRUCTOR - HOME VISIT 02/15/2024 Travel 02/14/[address] [phone] Pushpa Meier DO Medication Management (apixaban (Eliquis) 5 mg tablet) 02/11/2024 Plan of Care Documentation [facility] [address] [place] [phone] 02/10/2024 9:30 AM CDT Home Care Visit [facility] [address] [place] [phone] Aura Meyer, TIAN SN - OASIS RECERTIFICATION 02/08/2024 9:30 AM CDT Home Care Visit [facility] [address] [place] [phone] Aura Meyer, TIAN SN - HOME VISIT 02/03/2024 9:00 AM CDT Home Care Visit [facility] [address] [place] [phone] Aura Meyer, TIAN SN - HOME VISIT 02/01/2024 8:00 AM CDT Home Care Visit [facility] [address] [place] [phone] Aura Meyer, RN SN - HOME VISIT 02/01/[address] [place] [address] Pushpa Meier, DO Form 01/27/2024 9:30 AM CDT Home Care Visit [facility] [address] [place] [phone] Bettie Templeton LPN FITNESS INSTRUCTOR - HOME VISIT 01/27/2024 Travel 01/26/2024 Nurse Triage [facility] [address] [facility] [address] [place] [phone] Kerrie Islas, TIAN Error-please disregard (Error Entry - Please Disregard This Encounter) 01/26/2024 Telephone [facility] [address] [phone] Maxwell Brumfield MD Follow Up (Spironolactone (Aldactone) tolerance. BMP due) 01/26/2024 Refill [facility] [address] [phone] Maxwell Brumfield MD Refill Request (Metoprolol Tartrate) 01/25/2024 9:00 AM CDT Home Care Visit [facility] [address] [place] [phone] Aura Meyer, TIAN SN - HOME VISIT 01/24/2024 Orders Only [facility] [address] [phone] Maxwell Brumfield MD <No scans attached> 01/23/2024 Orders Only [facility] [address] [phone] Maxwell Brumfield MD <No scans attached> 01/20/2024 3:30 PM CDT Home Care Visit [facility] [address] [place] [address] Haley Pierre, TIAN SN - HOME VISIT 01/18/2024 2:00 PM CDT Home Care Visit [facility] [address] [place] [address] Aura Meyer RN SN - HOME VISIT 01/18/2024 10:00 AM CDT Office Visit [facility] [address] [facility] [address] [place] [address] Maxwell Brumfield MD CV Heart Failure Est (Appointment Note// CHF ANNUAL F/U. LABS DONE IN [facility]. //) 01/18/2024 Telephone [facility] [address] [facility] [address] [place] [address] Maxwell Brumfield MD Follow Up (Entresto/SGLT2 PAs) 01/18/2024 Travel 01/13/2024 10:15 AM CDT Home Care Visit [facility] [address] [place] [address] Bettie Templeton LPN FITNESS INSTRUCTOR - HOME VISIT 01/11/2024 9:00 AM CDT Home Care Visit [facility] [address] [place] [address] Bettie Templeton LPN FITNESS INSTRUCTOR - HOME VISIT 01/09/2024 Home Care Visit [facility] [address] [place] [address] Aura Meyer RN CARE COORDINATION 01/06/2024 10:45 AM CDT - 01/06/2024 1:00 PM CDT Emergency [facility] [address] [place] [address] Jeny Moreira MD Encounter for wound re-check (Primary Dx); Infestation by maggots Discharge Disposition: Home Self Care 01/06/2024 9:30 AM CDT Home Care Visit [facility] [address] [place] [address] Angelita Crawford RN SN - HOME VISIT 01/06/2024 Travel 01/06/2024 Refill [facility] [address] [facility] [address] [place] [address] Maxwell Brumfield MD Refill Request (Pravastatin) 01/05/2024 Orders Only [facility] [address] [facility] [address] [place] [address] Maxwell Brumfield MD Lab (/) 01/04/2024 1:30 PM CDT Home Care Visit [facility] [address] [place] [address] Aura Meyer, TIAN SN - HOME VISIT 01/03/[address] [phone] Pushpa Meier, DO Questions (Lab due) 12/30/2023 9:00 AM CDT Home Care Visit [facility] [address] [place] [phone] Aura Meyer, TIAN SN - HOME VISIT 12/28/2023 9:00 AM CDT Home Care Visit [facility] [address] [place] [phone] Mitzi Crawford, TIAN SN - HOME VISIT 12/23/2023 8:15 AM CDT Home Care Visit [facility] [address] [place] [phone] Haley Pierre, TIAN SN - HOME VISIT 12/21/2023 9:00 AM CDT Home Care Visit [facility] [address] [place] [phone] Bettie Templeton LPN LPN - HOME VISIT 12/16/2023 9:00 AM CDT Home Care Visit [facility] [address] [place] [phone] Bettie Templeton LPN LPN - HOME VISIT 12/09/2023 9:00 AM CDT Home Care Visit [facility] [address] [place] [address] Aura Meyer, RN SN - OASIS RECERTIFICATION 12/09/2023 Plan of Care Documentation [facility] [address] [place] [address] 12/07/2023 8:45 AM CDT Home Care Visit [facility] [address] [place] [address] Haley Pierre, TIAN SN - HOME VISIT [...] Sign Reading Time Taken Comments Blood Pressure 126/60 03/07/2024 8:16 AM GLASS SELECTOR Pulse 63 03/07/2024 8:16 AM GLASS SELECTOR Temperature 36.5 C (97.7 F) 03/07/2024 8:16 AM GLASS SELECTOR Respiratory Rate 20 03/07/2024 8:16 AM GLASS SELECTOR Oxygen Saturation 98% 03/07/2024 8:16 AM GLASS SELECTOR Inhaled Oxygen Concentration - - Weight 230.7 kg (508 lb 9.6 oz) 03/07/2024 6:45 AM GLASS SELECTOR Height 182.9 cm (6' 0.01) 01/18/2024 1 0:07 AM CDT Body Mass Index 68.96 01/18/2024 10:07 AM CDT Plan of Treatment Upcoming Encounters Date Type Department Care Team (Late st Contact Info) Description 03/14/2024 4:00 AM GLASS SELECTOR Home Care Visit [facility] [address] [place] [address] Aura Meyer, RN 03/16/2024 4:00 AM GLASS SELECTOR Home Care Visit [facility] [address] [place] [address] Aura Meyer, RN 03/16/2024 7:30 AM GLASS SELECTOR Orders Only [address] [place] [address] [facility], [facility] 03/21/2024 4:00 AM GLASS SELECTOR Home Care Visit [facility] [address] [place] [address] Aura Meyer, RN 03/23/2024 4:00 AM GLASS SELECTOR Home Care Visit [facility] [address] [place] [address] Aura Meyer, RN 03/28/2024 4:00 AM GLASS SELECTOR Home Care Visit [facility] [address] [place] [address] Aura Meyer, RN 03/30/2024 4:00 AM GLASS SELECTOR Home Care Visit [facility] [address] [place] [address] Aura Meyer, TIAN 04/04/2024 4:00 AM GLASS SELECTOR Home Care Visit [facility] [address] [place] [address], [place] [address] Aura Meyer, RN 04/06/2024 4:00 AM GLASS SELECTOR Home Care Visit [facility] [address] [place] [address] Aura Meyer, RN 08/20/2024 7:30 AM CDT Office Visit [facility] [address] [place] [address] Pushpa Meier, DO [address] [facility] [place] [address] Health Maintenance Due Date Last Done Comments [...] Blood Pressure No Devan Arroyo MD Procedures The patient is currently admitted. The information in this section might not be complete until the patient is discharged. Procedure Name Priority Date/Time Associated Diagnosis Comments EKG 12 LEAD SELENA 03/07/2024 8:35 AM GLASS SELECTOR GLUCOSE METER Timed 03/07/2024 8:11 AM GLASS SELECTOR PROCALCITONIN Early AM 03/07/2024 6:34 AM GLASS SELECTOR BASIC METABOLIC PANEL Early AM 03/07/2024 6:33 AM GLASS SELECTOR BLOOD GAS,VENOUS Early AM 03/07/2024 6:33 AM GLASS SELECTOR SCAN-CARDIAC STRIP 03/07/2024 1: 39 AM GLASS SELECTOR GLUCOSE METER Timed 03/07/2024 12:36 AM GLASS SELECTOR BASIC METABOLIC PANEL STAT 03/07/2024 12:06 AM GLASS SELECTOR AMMONIA STAT 03/07/2024 12:06 AM GLASS SELECTOR LACTATE VENOUS STAT 03/07/2024 12:06 AM GLASS SELECTOR BLOOD GAS,VENOUS STAT 03/07/2024 12:0 6 AM GLASS SELECTOR GLUCOSE METER Timed 03/06/2024 9:27 PM GLASS SELECTOR SCAN-CARDIAC STRIP 03/06/2024 6: 41 PM GLASS SELECTOR EKG 12 LEAD Routine 03/06/2024 6:14 PM GLASS SELECTOR GLUCOSE METER Timed 03/06/2024 5:54 PM GLASS SELECTOR XR CHEST 1 VIEW PORTABLE SELENA 03/06/2024 5:22 PM GLASS SELECTOR RESPIRATORY PANEL MULTIPLEX PCR Today 03/06/2024 4:35 PM GLASS SELECTOR PRO-BNP SELENA 03/06/2024 4:22 PM GLASS SELECTOR BASIC METABOLIC PANEL SELENA 03/06/2024 4:22 PM GLASS SELECTOR CBC W PLT NO DIFF SELENA 03/06/2024 4:2 2 PM GLASS SELECTOR BLOOD GAS,VENOUS SELENA 03/06/2024 4:22 PM GLASS SELECTOR PRO-BNP Routine 02/16/2024 7:53 AM GLASS SELECTOR URINE ALBUMIN TO CREATININE RATIO, RANDOM Routine 02/16/2024 7:53 AM GLASS SELECTOR Type 2 diabetes mellitus without complication, without long-term current use of insulin (HC) BASIC METABOLIC PANEL Routine 02/16/2024 7:30 AM GLASS SELECTOR Chronic diastolic heart failure (HC) PRO-BNP Routine 02/16/2024 7:30 AM GLASS SELECTOR Chronic diastolic heart failure (HC) BASIC METABOLIC [...] Relevant to Health Maintenance Results * (ABNORMAL) GLUCOSE METER (03/07/2024 8:11 AM GLASS SELECTOR) Only the most recent of4 resultswithin the time period is included. GLUCOSE METER 109(H) 65 - 100 mg/dL 03/07/2024 8:21 AM GLASS SELECTOR [facility] Blood BLOOD SPECIMEN / Unknown 03/07/2024 8:11 AM GLASS SELECTOR 03/07/2024 8:20 AM GLASS SELECTOR [facility] [place] [address] [place] [address], * PROCALCITONIN (03/07/2024 6:34 AM GLASS SELECTOR) PROCALCITONIN 0.17 ng/ml 03/07/2024 7:45 AM GLASS SELECTOR [facility] Blood BLOOD SPECIMEN / Unknown Butterfly / Unknown 03/07/2024 6:34 AM GLASS SELECTOR 03/07/2024 6:43 AM GLASS SELECTOR Narrative [facility] - 03/07/2024 7:45 AM GLASS SELECTOR Procalcitonin for initial assessment of Lower Respiratory Tract Infection: Results Interpretation <0.10 ng/mL Antibiotic therapy strongly discoraged. Indicates absent of bacterial infection. * 0.10 - 0.25 ng/mL Antibiotic therapy discouraged. Bacterial infection unlikely. * 0.26 - 0.50 ng/mL Antibiotic therapy encouraged. Bacterial infection possible. >0.50 ng/mL Antibiotic therapy strongly encouraged. Suggestive of presence of bacterial infection. *Antibiotic therapy should be considered regardless of PCT result if the patient is clinically unstable, is at high risk for adverse outcome, has strong evidence of bacterial pathogen, or the clinical context indicates antibiotic therapy is warranted. If antibiotics are withheld, reassess if symptoms persist/worsen and/or repeat PCT measurement within 6-24 hours. In order to assess treatment success and to support a decision to discontinue antibiotic therapy, follow up samples should be tested once every 1-2 days, based upon physician discretion taking into account patient's evolution and progress. Procalcitonin for initial assessment of severe sepsis risk: Results Interpretation <0.5 ng/ml A PCT level below 0.5 ng/ml on the first day of ICU admission is associated with a low risk for progression to severe sepsis and/or septic shock. > 2.0 ng/mL A PCT level above 2.0 ng/mL on the first day of ICU admission is associated with a high risk for progression to severe sepsis and/or septic shock. Note: Concentrations < 0.5 ng/mL do not exclude an infection, on account of localized infections (without systemic signs) which can be associated with such low concentrations, or a systemic infection in its initial stages(< 6 hours). Furthermore, increased procalcitonin can occur without infection. PCT concentrations between 0.5 and 2.0 ng/mL should be interpreted taking into account the patient's history. It is recommended to retest PCT within 6-24 hours if any concentrations < 2 ng/mL are obtained. Nichelle Henley MD SEND [facility]S [facility] [address] [place] [address], * (ABNORMAL) BLOOD GAS,VENOUS (03/07/2024 6:33 AM GLASS SELECTOR) Only the most recent of3 resultswithin the time period is included. PH, VENOUS 7.21(L) 7.32 - 7.43 03/07/2024 6:57 AM GLASS SELECTOR [facility] PCO2, VENOUS 91(HH) 41 - 51 mmHg 03/07/2024 6:57 AM GLASS SELECTOR [facility] PO2, VENOUS 54(H) 35 - 40 mmHg 03/07/2024 6:57 AM GLASS SELECTOR [facility] HCO3,VENOUS 36(H) 22 - 29 mmol/L 03/07/2024 6:57 AM [facility] BASE EXCESS, VENOUS, POCT 5.2(H) -2.0 - 3.0 03/07/2024 6:57 AM [facility] O2 SATURATION, VENOUS 83(H) 70 - 75 % 03/07/2024 6:57 AM [facility] PATIENT TEMPERATURE 37.0 Degrees C 03/07/2024 6:57 AM [facility] Blood VENOUS BLOOD SPECIMEN / Unknown Butterfly / Unknown 03/07/2024 6:33 AM GLASS SELECTOR 03/07/2024 6:43 AM GLASS SELECTOR Nichelle Henley MD CHEMISTRY [facility] [address] [place] [address], * (ABNORMAL) Basic metabolic panel AM (03/07/2024 6:33 AM GLASS SELECTOR) Only the most recent of7 resultswithin the time period is included. SODIUM 140 136 - 145 mmol/L 03/07/2024 7:45 AM [facility] POTASSIUM 5.8(H) 3.5 - 5.1 mmol/L 03/07/2024 7:45 AM [facility] CHLORIDE 102 98 - 107 mmol/L 03/07/2024 7:45 AM [facility] CO2,TOTAL 31(H) 22 - 29 mmol/L 03/07/2024 7:45 AM [facility] ANION GAP 7 5 - 18 03/07/2024 7:45 AM [facility] GLUCOSE 134(H) 70 - 99 mg/dL 03/07/2024 7:45 AM [facility] CALCIUM 8.9 8.8 - 10.4 mg/dL 03/07/2024 7:45 AM [facility] Comment: Reference ranges for this test were updated on 02/14/2024 to reflect our healthy population more accurately. Reference range changes are not retroactively applied to results, but previous results using the same methodology can be interpreted in the context of the new reference range. BUN 32(H) 8 - 23 mg/dL 03/07/2024 7:45 AM GLASS SELECTOR [facility] TRAL LABORATORY CREATININE 1.02 0.70 - 1.20 mg/dL 03/07/2024 7:45 AM GLASS SELECTOR [facility] TRAL LAB[facility] BUN/CREAT RATIO 31(H) 10 - 20 7:45 AM GLASS SELECTOR [facility] TRAL LABOR[facility]ORY eGFR 81(L) >90 mL/min/1. 73m2 03/07/2024 7:45 AM [facility] TR[facility] Comment:As of 2021, eG FR is calculated by the CKD-EPI creatinine equation without race adjustment. eGFR can be influenced by muscle mass, exercise, and diet. The reported eGFR is an estimation only and is only applicable if the renal function is stable. Blood BLOOD SPECIMEN / Unknown Butterfly / Unknown 03/07/2024 6:33 AM GLASS SELECTOR 03/07/2024 6:43 AM GLASS SELECTOR Nichelle Henley MD CHEMISTRY Performing Organization Address City/[facility]/ZIP Co de Phone Number [facility] [address] * SCAN-CARDIAC STRIP (03/07/2024 1:39 AM GLASS SELECTOR) Scanner OTHER * Lactate STAT (venous) (03/07/2024 12:06 AM GLASS SELECTOR) Only the most recent of2 resultswithin the time period is included. LACTATE,VENOUS 1.7 0.5 - 2.0 mmol/L 03/07/2024 12:49 AM GLASS SELECTOR [facility] Blood BLOOD SPECIMEN / Unknown Venipuncture / Unknown 03/07/2024 12:06 AM GLASS SELECTOR 03/07/2024 12:12 AM GLASS SELECTOR Thomas Bedoya DO CHEMISTRY [facility] [address] [place] [phone], * Ammonia STAT (03/07/2024 12:06 AM GLASS SELECTOR) AMMONIA 37 11 - 51 umol/L 03/07/2024 12:49 AM GLASS SELECTOR [facility] LAB[facility] Blood BLOOD SPECIMEN / Unknown Venipuncture / Unknown 03/07/2024 12:06 AM GLASS SELECTOR 03/07/2024 12:12 AM GLASS SELECTOR Narrative [facility] - 03/07/2024 12:49 AM GLASS SELECTOR 1. Sulfasalazine and its metabolite Sulfapyridine at therapeutic concentrations may lead to falsely low results. 2. Temozolomide and its metabolite MTIC may lead to falsely elevated results, and its metabolite AIC may lead to falsely low results. Thomas Bedoya DO CHEMISTRY [facility] [address] [address], * SCAN-CARDIAC STRIP (03/06/2024 6:41 PM GLASS SELECTOR) Scanner OTHER * XR CHEST 1 VIEW PORTABLE (03/06/2024 5:22 PM GLASS SELECTOR) Anatomical Region Laterality Modality HEART, THORAX, CHEST Digital Rad iography 03/06/2024 6:34 PM GLASS SELECTOR Narrative 03/06/2024 6:34 PM GLASS SELECTOR For Patients: As a result of the Century Cures Act, medical imaging exams and procedure reports are released immediately into your electronic medical record. You may view this report before your referring provider. If you have questions, please contact your health care provider. Indication: Shortness of breath Comparison: Single-view chest November 29, 2022 Technique: Single AP view chest Findings: Exam is somewhat limited due to patient body habitus and photon starvation through the peripheral chest wall and lung bases. Diffusely increased interstitial markings likely representing a component of pulmonary vascular congestion with likely basilar atelectasis. No pneumothorax. The cardiac silhouette is mildly enlarged, pericardial effusion can not be excluded. The bony thorax is grossly intact. Impression: Overall, mildly limited exam due to patient body habitus and photon starvation with likely component of pulmonary vascular congestion and basilar atelectasis versus infiltrates. Dictated by Jimy Arroyo MD @ 03/06/2024 6:34:57 PM (Electronically Signed) Procedure Note Jimy Arroyo MD - 03/06/2024 For Patients: As a result of the Cures Act, medical imagingexams and procedure reports are released immediately into your electronicmedical record. You may view this report before your referring provider.If you have questions, please contact your health care provider. Indication: Shortness of breath Comparison: Single-view chest November 29, 2022 Technique: Single AP view chest Findings: Exam is somewhat limited due to patient body habitus and photon starvationthrough the peripheral chest wall and lung bases. Diffusely increased interstitial markings likely representing a componentof pulmonary vascular congestion with likely basilar atelectasis. Nopneumothorax. The cardiac silhouette is mildly enlarged, pericardial effusion can not beexcluded. The bony thorax is grossly intact. Impression: Overall, mildly limited exam due to patient body habitus and photonstarvation with likely component of pulmonary vascular congestion andbasilar atelectasis versus infiltrates. Dictated by Jimy Arroyo MD @ 03/06/2024 6:34:57 PM (Electronically Signed) Nichelle Henley MD GENERAL IMAGING * RESPIRATORY PANEL MULTIPLEX PCR (03/06/2024 4:35 PM GLASS SELECTOR) Adenovirus NOT Detected 03/06/2024 6:20 PM GLASS SELECTOR [facility] [employer] LABORATORY-CE NTRAL LABORATORY Coronavirus 229E NOT Detected 03/06/2024 6:20 PM GLASS SELECTOR [facility] [employer] LABORATORY- NTRAL LABORATORY Coronavirus HKU1 NOT Detected 03/06/2024 6:20 PM [facility]OR [facility]- NTRAL LABORATORY Coronavirus NL63 NOT Detected 03/06/2024 6:20 PM GLASS SELECTOR [facility] LABORATORY-CE NTRAL LABORATORY Coronavirus OC43 NOT Detected 03/06/2024 6:20 PM GLASS SELECTOR [facility] LABORATORY- NTRAL LABORATORY Human Metapneumovirus NOT Detected 03/06/2024 6:20 PM GLASS SELECTOR [facility] LAB[facility] Human Rhinovirus/Enterovi ino NOT Detected 03/06/2024 6:20 PM GLASS SELECTOR [facility] LABOR[facility]ORY Influenza A NOT Detected 03/06/2024 6:20 PM [facility] SELECTOR [facility] Influenza B NOT Detected 03/06/2024 6:20 PM [facility] SELECTOR [facility] Parainfluenza Virus 1 NOT Detected 03/06/2024 6:20 PM [facility] SELECTOR [facility] Parainfluenza Virus 2 NOT Detected 03/06/2024 6:20 PM [facility] SELECTOR [facility] Parainfluenza Virus 3 NOT Detected 03/06/2024 6:20 PM [facility] SELECTOR [facility] Parainfluenza Virus 4 NOT Detected 03/06/2024 6:20 PM [facility] SELECTOR [facility] Respiratory Syncytial Virus NOT Detected 03/06/2024 6:20 PM [facility] SELECTOR [facility] SARS-Cov-2 NOT Detected 03/06/2024 6:20 PM [facility] SELECTOR [facility] Bordetella pertussis NOT Detected 03/06/2024 6:20 PM [facility] SELECTOR [facility] Bordetella Parapertussis NOT Detected 03/06/2024 6:20 PM GL[facility] SELECTOR [facility] Chlamydophila pneumoniae NOT Detected 03/06/2024 6:20 PM [facility] SELECTOR [facility] Mycoplasma pneumoniae NOT Detected 03/06/2024 6:20 PM [facility] SELECTOR [facility] Nasopharyngeal NASOPHARYNGEAL SWAB / Unknown Non-Blood / Unknown 03/06/2024 4:35 PM GLASS SELECTOR 03/06/2024 4:48 PM GLASS SELECTOR [facility][1] LABORATORY - 03/06/2024 6:20 PM GLASS SELECTOR All PCR tests are subject to false negative results due to variability in viral/bacterial load and collection technique. This test does NOT detect MERS ( Respiratory Syndrome) or SARS-1 (Severe Acute Respiratory Syndrome). Nichelle Henley MD MICROBIOLOGY [facility] [address] [address], * (ABNORMAL) CBC no diff TODAY (03/06/2024 4:22 PM GLASS SELECTOR) [facility] WHITE BLOOD COUNT 7.6 4.5 - 11.0 thou/cu mm 03/06/2024 4:39 PM GL[facility] SELECTOR [facility] TRAL LABORATORY RED BLOOD COUNT 5.48 4.30 - 5.90 mil/cu mm 03/06/2024 4:39 PM GL[facility] SELECTOR [facility] TRAL LABORATORY HEMOGLOBIN 12.7(L) 13.5 - 17.5 g/dL 03/06/2024 4:39 PM GLASS SELECTOR [facility] TRAL LABORATORY HEMATOCRIT 46.7 37.0 - 53.0 % 03/06/2024 4:39 PM GLASS SELECTOR [facility] TRAL LABORATORY MCV 85 80 - 100 fL 03/06/2024 4:39 PM GLASS SELECTOR [facility] TRAL LABORATORY MCH 23.2(L) 26.0 - 34.0 pg 03/06/2024 4:39 PM GLASS SELECTOR [facility] TRAL LABORATORY MCHC 27.2(L) 32.0 - 36.0 g/dL 03/06/2024 4:39 PM GLASS SELECTOR [facility] TRAL LABORATORY RDW 19.8(H) 11.5 - 15.5 % 03/06/2024 4:39 PM GLASS SELECTOR [facility] TRAL LABORATORY PLATELET COUNT 165 140 - 440 thou/cu mm 03/06/2024 4:39 PM GLASS SELECTOR [facility] TRAL LABORATORY MPV 9.8 6.5 - 11.0 fL 03/06/2024 4:39 PM GLASS SELECTOR [facility] TRAL LABORATORY NRBC 0.3 % 03/06/2024 4:39 PM GLASS SELECTOR [facility] TRAL LABORATORY ABS NRBC 0.0 thou /cu mm 03/06/2024 4:39 PM [facility] TRAL LABORATORY Blood BLOOD SPECIMEN / Unknown Butterfly / Unknown 03/06/2024 4:22 PM GLASS SELECTOR 03/06/2024 4:28 PM GLASS SELECTOR Nichelle Henley MD HEMATOLOGY Performing Organization Address City/[facility]/ZIP Co de Phone Number [facility] [address] [place] [phone], * (ABNORMAL) PRO-BNP (03/06/2024 4:22 PM GLASS SELECTOR) Only the most recent of4 resultswithin the time period is included. PRO-BNP 953(H) <125 pg/mL 03/06/2024 5:05 PM GLASS SELECTOR [facility] LAB[facility] Blood BLOOD SPECIMEN / Unknown Butterfly / Unknown 03/06/2024 4:22 PM GLASS SELECTOR 03/06/2024 4:27 PM GLASS SELECTOR Narrative [facility] - 03/06/2024 5:05 PM GLASS SELECTOR The following cut-points have been suggested for the use of proBNP for the diagnostic evaluation of heart failure (HF) in patient with acute dyspnea. Patients with eGFR >= 60 Diagnosis (rule in CHF) <50 Years Old 450 pg/mL 50 - 75 Years Old 900 pg/mL >75 Years Old 1800 pg/mL Exclusion (rule out CHF) Age Independent 300 pg/mL A cutoff of 1200 pg/mL for patients with an eGFR <60 yields a diagnostic sensitivity of 89% and specificity of 72% for acute congestive heart failure. Nichelle Henley MD SEND OUTS Performing Organization Address City/[facility]/ZIP Co de Phone Number [facility] [employer] [facility] [address] [place] [phone], [place] * (ABNORMAL) URINE ALBUMIN TO CREATININE RATIO, RANDOM (02/16/2024 7:53 AM GLASS SELECTOR) CREATININE, RANDOM URINE 109 20 - 320 mg/dL [facility] ALBUMIN, URINE 11.1 See Note: mg/dL ScopisVishal Bustamante Comment: Reference Range: Reference Range Not established ALBUMIN/CREATININE RATIO, RANDOM URINE 102(H) <30 mg/g creat ScopisVishal Bustamante Comment: The ADA defines abnormalities in [...] URINE SPECIMEN / Unknown 02/16/2024 7:53 AM GLASS SELECTOR 02/16/2024 7:54 AM GLASS SELECTOR Narrative [facility]ST[facility] - 02/17/2024 5:30 AM GLASS SELECTOR INCLUDES STAT TESTING; ROUTINE TESTING TO FOLLOW. Pushpa Victorianeri Meier DO URINE Let[facility] [address] [place] [address], [facility] [address] [place] [phone] * (ABNORMAL) CBC WITH AUTO DIFFERENTIAL (01/06/2024 11:33 AM CDT) Only the most recent of2 resultswithin the time period is included. WHITE BLOOD COUNT 6.6 4.5 - 11.0 thou/cu mm 01/06/2024 12:04 PM [facility] RED BLOOD COUNT 4.69 4.30 - 5.90 mil/cu mm 01/06/2024 12:04 PM [facility] HEMOGLOBIN 12.0(L) 13.5 - 17.5 g/dL 01/06/2024 12:04 PM [facility] HEMATOCRIT 41.0 37.0 - 53.0 % 01/06/2024 12:04 PM [facility] MCV 87 80 - 100 fL 01/06/2024 12:04 PM [facility] MCH 25.6(L) 26.0 - 34.0 pg 01/06/2024 12:04 PM [facility] MCHC 29.3(L) 32.0 - 36.0 g/dL 01/06/2024 12:04 PM [facility] RDW 20.0(H) 11.5 - 15.5 % 01/06/2024 12:04 PM [facility] PLATELET COUNT 173 140 - 440 thou/cu mm 01/06/2024 12:04 PM [facility] MPV 10.1 6.5 - 11.0 fL 01/06/2024 12:04 PM [facility] % NEUT 66.3 % 01/06/2024 12:04 PM [facility] % LYMPH 17.4 % 01/06/2024 12:04 PM [facility] % MONO 11.8 % 01/06/2024 12:04 PM [facility] % EOS 3.9 % 01/06/2024 12:04 PM [facility] % BASO 0.6 % 01/06/2024 12:04 PM [facility] ABSOLUTE NEUTROPHILS 4.4 1.7 - 7.0 thou/cu mm 01/06/2024 12:04 PM [facility] ABSOLUTE LYMPHOCYTES 1.2 0.9 - 2.9 thou/cu mm 01/06/2024 12:04 PM [facility] ABSOLUTE MONOCYTES 0.8 <0.9 thou/cu mm 01/06/2024 12:04 PM [facility] ABSOLUTE EOSINOPHILS 0.3 <0.5 thou/cu mm 01/06/2024 12:04 PM [facility] ABSOLUTE BASOPHILS 0.0 <0.3 thou/cu mm 01/06/2024 12:04 PM [facility] Blood BLOOD SPECIMEN / Unknown Venipuncture / Unknown 01/06/2024 11:33 AM CDT 01/06/2024 11:36 AM T Jeny Moreira MD HEMAT OLOGY Performing Organization Address City/State/[facility] Co de Phone Number [facility] [address] [place] [address] * (ABNORMAL) RED CELL MORPHOLOGY (01/06/2024 11:33 AM CDT) Pathologist [facility] ELLIPTOCYTES Few 01/06/2024 12:[address] [facility] RBC COMMENT Present(A) RBC morphology appears normal, RBC morphology within normal limits for newborns. 01/06/2024 12:[address] [facility] LARGE PLATELETS Present 12:[address] [facility] Blood BLOOD SPECIMEN / Unknown Venipuncture / Unknown 01/06/2024 11:33 AM CDT 01/06/2024 11:36 AM CDT Jeny Moreira MD HEMAT OLOGY Performing Organization Address [facility] de Phone Number [facility] [address] [place] [address] * PLATELET ESTIMATE (01/06/2024 11:33 AM CDT) [facility] PLATELET ESTIMATE Adequate Adequate, No estimate 01/06/2024 12:[address] [facility] Blood BLOOD SPECIMEN / Unknown Venipuncture / Unknown 01/06/2024 11:33 AM CDT 01/06/2024 11:36 AM CDT Jeny Moreira MD HEMAT OLOGY Performing Organization Address [facility] Co de Phone Number [facility] [address] [place] [address] * (ABNORMAL) HEMOGLOBIN A1C (01/06/2024 7:22 AM CDT) Pathologist [facility] HEMOGLOBIN A1C 7.2(H) <5.7 % of total Hgb [facility]ustam[facility] Comment: For someone without known diabetes, [...] change in test platforms from the Bender Tare Weigher to the David tiffanie c503 may have shifted HbA1c results compared to historical results. Based on laboratory validation testing conducted at [facility], the David platform relative to the Bender [...] AM CDT 01/06/2024 7:23 AM CDT Narrative [facility] - 01/07/2024 5:37 AM CDT FASTING:YES FASTING: YES Pushpa Meier DO CHEMISTRY [facility] [address] [place] [address], [employer] [facility] [address] [place] [phone] * (ABNORMAL) LIPID PANEL W REFLEX MEASURED LDL (10/06/2023 7:49 AM CDT) [facility] CHOLESTEROL,TOTAL 149 100 - 199 mg/dL 10/06/2023 8:45 AM [facility] Comment: Cholesterol, Total Reference Ranges Desirable <200 mg/dL Borderline 200-239 mg/dL High >=240 mg/dL TRIGLYCERIDES 183(H) <150 mg/dL 10/06/2023 8:45 AM [facility] HDL CHOLESTEROL 31(L) >40 mg/dL 8:45 AM [facility] NON-HDL CHOLESTEROL 118 <145 mg/dl 10/06/2023 8:[address] [facility] CHOL/HDL RATIO 4.81(H) <4.50 10/06/2023 8:[address] [facility] LDL CHOLESTEROL 81 <=130 mg/dL 10/06/2023 8:[address] [facility] VLDL CHOLESTEROL 37(H) <=30 mg/dL 10/06/2023 8:[address] [facility] PROVIDER ORDERED STATUS RANDOM 10/06/2023 8:[address] [facility] Blood BLOOD SPECIMEN / Unknown Venipuncture / Unknown 10/06/2023 7:49 AM CDT 10/06/2023 7:49 AM CDT Pushpa Meier DO CHEMISTRY [facility] [address] [place] [address] * ANTI HCV (10/30/2020 8:30 AM CDT) HEPATITIS C ANTIBODY Non-React asif Non-React asif 10/30/2020 5:23 PM CDT [facility] TRAL LABORATORY Comment:Antibodies to HCV no t detected; does not exclude the possibility of exposure to HCV. Blood BLOOD SPECIMEN / Unknown Butterfly / Unknown 10/30/2020 8:30 AM CDT 10/30/2020 8:32 AM CDT Pushpa Meier DO SEND OUTS [facility] [address] [place] [address], from Last 3 Months or Most Recently Relevant to Health Maintenance Advance Directives Documents on File Type Date Recorded Patient Hand Weaver Expl anation POLST 01/31/2023 POLST 12/23/2022 2:28 PM POLST * Full Code (Latest Code Status on File) Date Activated Date Inactivated Comments 03/06/2024 4:54 PM Question Answer Comments Code Status Discussion: Reviewed Preferences * Full Code Date Activated Date Inactivated Comments 12/09/2022 4:30 [...] Comments 06/01/2019 11:26 PM 06/05/2019 4:21 PM Care Teams Coding Consultant Relationship Specialty Start Date End Date Pushpa Meier DO [address] [place] [phone] PCP - General Internal Medicine 01/17/20 Maxwell Brumfield MD [address] [place] [address] Cardiology - CHF Cardiovascular Disease 01/17/20 Nurses, Advanced Heart Failure [address], [place] [address] Advanced Heart Failure/Transplant Card [facility] [place] [address] [place] [address] 12/18/22
== END 2024-03-06 13:36 | disposition home or self-care (01) ==
LOC: AMB 03-07 09:26
PROVIDERS: PCP Internal Medicine; Visit Provider Emergency Medicine
DX: J44.1 Chronic obstructive pulmonary disease with (acute) exacerbation (principal); J96.01 Acute respiratory failure with hypoxia
CPT/HCPCS: A0425; A0427

== ENCOUNTER 2024-03-19 09:48 | Outpatient (CLI) | payer MEDICARE, BC, SELFPAY ==
--- OUTSIDE RECORDS SUMMARY | 2024-03-19 09:50 | XMS_ITS | Clinical Summary ---
Author Organization [facility] & [facility] Address [place], [place] [address] Care Team Providers Care Human Services Manager Name Role Phone Maxwell Brumfield MD Unavailable [phone] Pushpa Meier DO Primary Care Provider Nurses, Advanced Heart Failure Unavailable + [facility], [place] Unavailable [phone] Allergies No known active allergies Medications acetaminophen (TYLENOL) 500 mg capsuleIndication s:pain Take 2 capsules. by mouth every 6 hours if needed. Max acetaminophen dose: 4000mg in 24 hrs. Indications: pain 0 018 Active durable medical equipment (DME)Indications: Dependent edema Sock aid 1 Each 019 Active medical supply, miscellaneous (GRADUATED COMPRESSION STOCKINGS)Indicat ions:Edema, unspecified type For personal use. Length: calf Strength: 20-30 mmHg Circumference in cm: For calf: Ankle 14, Calf 23, Ankle to calf length 20. 2 Packet 6 019 Active Alginate Dressing 2 X 2 bndgIndications:U lcer of right calf, unspecified ulcer stage (HC) Apply topically to affected area(s). 20 Each 021 Active blood sugar diagnostic (Accu-Chek SmartView Test Strip) stripIndications: Uncontrolled type 2 diabetes mellitus with hyperglycemia (HC) Dispense test strips covered by the patient insurance. Test 3 times per day. 300 Each 3 021 Active ketoconazole 2% shampoo (NIZORAL) 2 % shampooIndication s:Scalp psoriasis SHAMPOO THE HAIR THOROUGHLY EACH DAY FOR 3 DAYS 120 mL 3 023 Active nystatin powder (Nyamyc) powderIndications :Venous stasis dermatitis of both lower extremities APPLY EXTERNALLY TO THE AFFECTED AREA TWO TIMES A DAY 60 g 12 023 Active Darke Tar 1 % shampooIndication s:Scalp psoriasis Apply to hair and scalp, rinse, repeat, leave on 5 minutes, rinse again. Use twice weekly for 2 weeks then once weekly as needed. 177 mL 3 024 Active blood sugar diagnostic (Blood Glucose Test) stripIndications: Type 2 diabetes mellitus without complication, without long-term current use of insulin (HC) Test 1 times per day. ACCU CHEK SMART VIEW. As covered by ins 100 Each 3 024 Active lancets (Accu-Chek FastClix Lancing Dev)Indications:T ype 2 diabetes mellitus with hypoglycemia without coma, without long-term current use of insulin (HC) Test 3 times per day. 100 Each 5 024 Active WalkerIndications :Venous stasis dermatitis of both lower extremities,Morbi d obesity (HC) Bariatric Walker with front wheels for home use. 1 Each 024 Active albuterol HFA (PRO-AIR; VENTOLIN; PROVENTIL) 90 mcg/actuation inhalerIndication s:Chronic cough,Shortness of breath,Acute bronchitis, unspecified organism INHALE 2 PUFFS BY MOUTH EVERY 4 HOURS NEEDED FOR SHORTNESS OF BREATH/WHEEZING 18 g 024 Active blood-glucose meterIndications: Uncontrolled type 2 diabetes mellitus with hyperglycemia (HC) Dispense meter covered by pts insurance. 1 Each 024 Active zinc sulfate 50 mg zinc (220 mg) capsuleIndication s:Venous ulcer of right leg (HC) Take 1 Capsule (220 mg) by mouth once daily. 90 Capsule 1 024 Active apixaban (Eliquis) 5 mg tabletIndications :Atypical atrial flutter (HC) Take 1 Tablet (5 mg) by mouth two times daily. 180 Tablet 3 024 Active pravastatin (PRAVACHOL) 20 mg tabletIndications :Heart failure, unspecified HF chronicity, unspecified heart failure type (HC),Mixed hyperlipidemia Take 1 Tablet (20 mg) by mouth at bedtime. 90 Tablet 3 Active amiodarone (CORDARONE) 200 mg tabletIndications :PAF (paroxysmal atrial fibrillation) (HC) TAKE 1 TABLET(200 MG) BY MOUTH DAILY 90 Tablet 1 Active ammonium lactate 12 % lotionIndications :Type 2 diabetes mellitus without complication, without long-term current use of insulin (HC),Venous stasis dermatitis of both lower extremities,Fissu res in skin of both feet Apply topically to affected area(s) two times daily. 396 g 5 Active docusate (COLACE) 100 mg capsuleIndication s:Constipation, acute Take 1 Capsule (100 mg) by mouth 2 times daily if needed for Constipation. 180 Capsule 3 Active metFORMIN (GLUCOPHAGE) 500 mg tabletIndications :Type 2 diabetes mellitus without complication, without long-term current use of insulin (HC) Take 2 Tablets (1,000 mg) by mouth two times daily with meals. 360 Tablet 1 Active traMADoL (ULTRAM) 100 mg tabletIndications :Poor dentition Take 1 Tablet (100 mg) by mouth every 6 hours if needed (pain). 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 Resume on 03/18/2024 90 Tablet 3 03/17/20 24 11:47 AM FUEL OIL TRUCK DRIVER Active spironolactone (ALDACTONE) 25 mg tabletIndications :Chronic diastolic heart failure (HC) Take 1 Tablet (25 mg) by mouth once daily. 90 Tablet 3 024 2023 Discontinued(* IP Discontinued) dapagliflozin propanediol (Farxiga) 10 mg tablet Take 1 Tablet (10 mg) by mouth once daily. BMP labs in 2 weeks after starting. 90 Tablet 3 01/24/20 24 11:07 AM CDT 024 2023 Discontinued sacubitril-valsar squires (ENTRESTO 49 MG-51 MG TABLET) 49-51 mg tabletIndications :Chronic diastolic heart failure (HC) Take 1 Tablet by mouth two times daily. 180 Tablet 3 01/25/20 24 8:21 AM CDT 024 2023 Discontinued(* IP Discontinued) metoprolol tartrate (LOPRESSOR) 25 mg tabletIndications :Chronic diastolic heart failure (HC),Acute on chronic heart failure, unspecified heart failure type (HC) TAKE 1 TABLET BY MOUTH TWICE DAILY 180 Tablet 3 024 2023 Discontinued(* IP Discontinued) furosemide (LASIX) 40 mg tabletIndications :Chronic diastolic heart failure (HC),Venous ulcer of right leg (HC) Take 2 Tablets (80 mg) by mouth two times daily. 360 Tablet 3 024 2023 Discontinued(* IP Discontinued) Active Problems Problem Noted Date Diagnosed Date Acute on chronic respiratory failure with hypoxia and hypercapnia 03/07/2024 Hypercapnic acidosis 03/06/2024 Hypoxic respiratory failure 03/06/2024 [...] Encounters Date Type Department Care Team Description 03/15/2024 Telephone [facility] [address] [facility] [address] [place] [address] Maxwell Brumfield MD Concerns 03/14/2024 Telephone [facility] [address] [place] [address] Maxwell Brumfield MD Concerns ([employer] application) 03/10/2024 Travel 03/07/2024 Home Care Visit [facility] [address] [place] [address] Aura Meyer, RN SN - OASIS TRANSFER 03/07/2024 Orders Only [facility] Scanner 1 scan: (1-Ord) INCOMING RECORDS-EKG, [facility], 03/07/2024 03/07/2024 Home Care Visit [facility] [address] [place] [address] Aura Meyer, VP NOTE 03/06/2024 2:49 PM FUEL OIL TRUCK DRIVER - 03/17/2024 2:54 PM FUEL OIL TRUCK DRIVER Hospital Encounter [facility] [address] [place] [address] [facility] Hospitalists [facility], MD [place] [facility] Erik John, MD Roberts, Mónica Leyva MD Chronic systolic CHF (congestive heart failure) (HC) (Primary Dx); Cardiovascular symptoms; Acute on chronic combined systolic and diastolic heart failure (HC); Acute on chronic respiratory failure with hypoxia and hypercapnia (HC); Venous ulcer of right leg (HC) Discharge Disposition: Home Health 03/06/2024 Orders Only [facility] Scanner 1 scan: (1-Ord) [facility], XR CHEST 2 VIEWS, 03/06/2024 03/06/2024 Home Care Visit [facility] [address] [place] [phone] Aura Meyer, TIAN CARE COORDINATION 03/02/2024 9:30 AM FUEL OIL TRUCK DRIVER Home Care Visit [facility] [address] [place] [phone] Aura Meyer, TINA SN - HOME VISIT 02/29/2024 9:30 AM FUEL OIL TRUCK DRIVER Home Care Visit [facility] [address] [place] [phone] Aura Meyer, TIAN SN - HOME VISIT 02/24/2024 9:00 AM FUEL OIL TRUCK DRIVER Home Care Visit [facility] [address] [place] [phone] Aura Meyer, TIAN SN - HOME VISIT 02/22/2024 9:00 AM FUEL OIL TRUCK DRIVER Home Care Visit [facility] [address] [place] [phone] Aura Meyer, TIAN SN - HOME VISIT 02/17/2024 9:00 AM FUEL OIL TRUCK DRIVER Home Care Visit [facility] [address] [place] [phone] Bettie Templeton LPN CONSTRUCTION CONTRACTOR - HOME VISIT 02/17/[address] [phone] Pushpa Meier, DO Results (Callback request ) 02/17/[address] [address] Pushpa Meier DO Questions (Return call) 02/17/[address] [place] [address] Pushpa Meier DO Prior Authorization (TraMADoL 100 mg tablet APPROVED (11/19/2023-02/16/2025 )) 02/16/2024 7:30 AM FUEL OIL TRUCK DRIVER Office Visit [address] [place] [address] Pushpa Meier DO Diabetes 02/16/2024 Telephone [facility] [address] [place] [id number] [place] [phone] Maxwell Brumfield MD 02/15/2024 10:30 AM FUEL OIL TRUCK DRIVER Home Care Visit [address] [phone] Bettie Templeton LPN CONSTRUCTION CONTRACTOR - HOME VISIT 02/15/2024 Travel 02/14/[address] [phone] Pushpa Meier DO Medication Management (apixaban (Eliquis) 5 mg tablet) 02/11/2024 Plan of Care Documentation [address] [phone] 02/10/2024 9:30 AM CDT Home Care Visit [place] [id number] [place] [phone] Aura Meyer, TIAN SN - OASIS RECERTIFICATION 02/08/2024 9:30 AM CDT Home Care Visit [address] [phone] Aura Meyer, RN SN - HOME VISIT 02/03/2024 9:00 AM CDT Home Care Visit [address] [phone] Aura Meyer, RN SN - HOME VISIT 02/01/2024 8:00 AM CDT Home Care Visit [facility] [address] [place] [address] Aura Meyer, RN SN - HOME VISIT 02/01/[address] [phone] Pushpa Meier, DO Form 01/27/2024 9:30 AM CDT Home Care Visit [facility] [address] [place] [address] Bettie Templeton LPN CONSTRUCTION CONTRACTOR - HOME VISIT 01/27/2024 Travel 01/26/2024 Nurse Triage [facility] [address] [place] [phone] Kerrie Islas RN Error-please disregard (Error Entry - Please Disregard This Encounter) 01/26/2024 Telephone [facility] [address] [place] [phone] Maxwell Brumfield MD Follow Up (Spironolactone (Aldactone) tolerance. BMP due) 01/26/2024 Refill [facility] [address] [place] [phone] Maxwell Brumfield MD Refill Request (Metoprolol Tartrate) 01/25/2024 9:00 AM CDT Home Care Visit [facility] [address] [place] [address] Aura Meyer, TIAN SN - HOME VISIT 01/24/2024 Orders Only [facility] [address] [place] [phone] Maxwell Brumfield MD <No scans attached> 01/23/2024 Orders Only [facility] [address] [place] [address] Maxwell Brumfield MD <No scans attached> 01/20/2024 3:30 PM CDT Home Care Visit [facility] [address] [place] [address] Haley Pierre RN SN - HOME VISIT 01/18/2024 2:00 PM CDT Home Care Visit [facility] [address] [place] [phone] Aura Meyer, TIAN SN - HOME VISIT 01/18/2024 10:00 AM CDT Office Visit [facility] [address] [address] Maxwell Brumfield MD CV Heart Failure Est (Appointment Note// CHF ANNUAL F/U. LABS DONE IN [facility]. //) 01/18/2024 Telephone [facility] [address] [phone] Maxwell Brumfield MD Follow Up (Entresto/SGLT2 PAs) 01/18/2024 Travel 01/13/2024 10:15 AM CDT Home Care Visit [facility] [address] [place] [phone] Bettie Templeton LPN LPN - HOME VISIT 01/11/2024 9:00 AM CDT Home Care Visit [facility] [address] [place] [phone] Bettie Templeton LPN LPN - HOME VISIT 01/09/2024 Home Care Visit [facility] [address] [place] [phone] Aura Meyer, TIAN CARE COORDINATION 01/06/2024 10:45 AM CDT - 01/06/2024 1:00 PM CDT Emergency [place] [address] [place] [address] MitJeny pastrana MD Encounter for wound re-check (Primary Dx); Infestation by maggots Discharge Disposition: Home Self Care 01/06/2024 9:30 AM CDT Home Care Visit [facility] [address] [place] [address] Angelita Crawford RN SN - HOME VISIT 01/06/2024 Travel 01/06/2024 Refill [facility] [address] [facility] [address] [place] [address] Maxwell Brumfield MD Refill Request (Pravastatin) 01/05/2024 Orders Only [facility] [address] [facility] [address] [place] [address] Maxwell Brumfield MD Lab (/) 01/04/2024 1:30 PM CDT Home Care Visit [place] [id number] [place] [phone] Aura Meyer, TIAN SN - HOME VISIT 01/03/[address] [phone] Pushpa Meier, DO Questions (Lab due) 12/30/2023 9:00 AM CDT Home Care Visit [address] [phone] Aura Meyer, TIAN SN - HOME VISIT 12/28/2023 9:00 AM CDT Home Care Visit [address] [phone] Mitzi Crawford, TIAN SN - HOME VISIT 12/23/2023 8:15 AM CDT Home Care Visit [address] [phone] Haley Pierre, TIAN SN - HOME VISIT 12/21/2023 9:00 AM CDT Home Care Visit [address] [phone] Bettie Templeton, CONSTRUCTION CONTRACTOR CONSTRUCTION CONTRACTOR - HOME VISIT from Last 3 Months [...] or isolated from those around you? 0 03/10/2024 Financial Resource Strain Answer Date R ecorded Difficulty of Paying Living Expenses 3 10/06/2023 Difficulty of Paying Living Expenses Not on file 10/06/2023 Food Insecurity Answer Date Recorded Do you worry your food will run out before you are able to buy more? 1 03/10/2024 Transportation Needs Answer Date Record ed Does lack of transportation keep you from medica l appointments? 1 03/10/2024 Does lack of transportation keep you from work, meetings or getting things that you need? 1 03/10/2024 Housing Stability Answer Date Recorded What is your housing situation today? 1 03/10/2024 Sex and Gender Information Value Date Recorded Sex Assigned at Not on file Legal Sex Male 5:23 AM FUEL OIL TRUCK DRIVER Gender Identity Not on file Sexual Orientation Not on file Occupation Industry Job Start Date Job End Date [employer] Not on file Not on file Not on fi le Not on file Not on file Not on file Not on file Obstetrics History Last Filed Vital Signs Vital Sign Reading Time Taken Comments Blood Pressure 122/67 03/17/2024 9:20 AM FUEL OIL TRUCK DRIVER Pulse 60 03/17/2024 9:20 AM FUEL OIL TRUCK DRIVER Temperature 36.8 C (98.2 F) 03/17/2024 9:20 AM FUEL OIL TRUCK DRIVER Respiratory Rate 18 03/17/2024 9:20 AM FUEL OIL TRUCK DRIVER Oxygen Saturation 96% 03/17/2024 9:22 AM FUEL OIL TRUCK DRIVER Inhaled Oxygen Concentration - - Weight 209.8 kg (462 lb 8 oz) 03/17/2024 8:57 AM FUEL OIL TRUCK DRIVER Height 193 cm (6' 4) 03/11/2024 5:15 AM FUEL OIL TRUCK DRIVER Body Mass Index 56.3 03/11/2024 5:15 AM FUEL OIL TRUCK DRIVER Plan of Treatment Upcoming Encounters Date Type Department Care Team (Late st Contact Info) Description 03/21/2024 11:00 AM FUEL OIL TRUCK DRIVER Office Visit [address] [phone] Hina Tang MD [address] [place] [address] 04/02/2024 11:00 AM FUEL OIL TRUCK DRIVER [facility] [address] [facility] [address] [place] [address] Vilma Islas, FATBACK TRIMMER [address] [facility] [address] [place] [address] 04/09/2024 1:00 PM FUEL OIL TRUCK DRIVER [facility] [address] [facility] [address] [place] [address] Vilma Islas, FATBACK TRIMMER [address] [facility] [address] [place] [address] 08/20/2024 7:30 AM CDT Office Visit [facility] [address] [place] [address] Pushpa Meier DO [address] [place] [address] Health Maintenance Due Date Last Done Comments [...] C screening for age 18-79 Completed 10/30/2020 RSV vaccine for adults or Completed 03/31/2023 COVID-19 vaccine series Completed 02/07/20 24, 03/25/2023, 02/17/2022, Additional history exists Influenza for age 65+ Completed 02/07/2024 , 12/23/2022, 01/07/2022, Additional history exists Goals Goal Patient Goal Type Associated Problems Recent Progress Patient-Stated? Author BLOOD PRESSURE - MAINTAINS BP less than 140/90 Blood Pressure No Devan Arroyo MD Procedures Procedure Name Priority Date/Time Associated Diagnosis Comments GLUCOSE METER Timed 03/17/2024 11:39 AM FUEL OIL TRUCK DRIVER SCAN-CARDIAC STRIP 03/17/2024 8: 00 AM FUEL OIL TRUCK DRIVER GLUCOSE METER Timed 03/17/2024 7:56 AM FUEL OIL TRUCK DRIVER CREATININE Early AM 03/17/2024 6:08 AM FUEL OIL TRUCK DRIVER POTASSIUM Early AM 03/17/2024 6:08 AM FUEL OIL TRUCK DRIVER SODIUM Early AM 03/17/2024 6:08 AM FUEL OIL TRUCK DRIVER SCAN-CARDIAC STRIP 03/17/2024 3: 46 AM FUEL OIL TRUCK DRIVER GLUCOSE METER Timed 03/16/2024 9:28 PM FUEL OIL TRUCK DRIVER GLUCOSE METER Timed 03/16/2024 5:05 PM FUEL OIL TRUCK DRIVER GLUCOSE METER Timed 03/16/2024 11:56 AM FUEL OIL TRUCK DRIVER BASIC METABOLIC PANEL Early AM 03/16/2024 11:06 AM FUEL OIL TRUCK DRIVER GLUCOSE METER Timed 03/16/2024 7:36 AM FUEL OIL TRUCK DRIVER SCAN-CARDIAC STRIP 03/16/2024 12 :57 AM FUEL OIL TRUCK DRIVER GLUCOSE METER Timed 03/15/2024 10:51 PM FUEL OIL TRUCK DRIVER GLUCOSE METER Timed 03/15/2024 4:49 PM FUEL OIL TRUCK DRIVER POTASSIUM Timed 03/15/2024 4:14 PM FUEL OIL TRUCK DRIVER GLUCOSE METER Timed 03/15/2024 1:40 PM FUEL OIL TRUCK DRIVER GLUCOSE METER Timed 03/15/2024 11:57 AM FUEL OIL TRUCK DRIVER POTASSIUM Timed 03/15/2024 10:19 AM FUEL OIL TRUCK DRIVER CVL OTHER PROCEDURE Routine 03/15/2024 9 :04 AM FUEL OIL TRUCK DRIVER Cardiovascular symptoms PRO-BNP Early AM 03/15/2024 8:12 AM FUEL OIL TRUCK DRIVER BASIC METABOLIC PANEL Early AM 03/15/2024 8:12 AM FUEL OIL TRUCK DRIVER GLUCOSE METER Timed 03/15/2024 8:00 AM FUEL OIL TRUCK DRIVER SCAN-CARDIAC STRIP 03/15/2024 5: 21 AM FUEL OIL TRUCK DRIVER GLUCOSE METER Timed 03/14/2024 9:04 PM FUEL OIL TRUCK DRIVER GLUCOSE METER Timed 03/14/2024 5:16 PM FUEL OIL TRUCK DRIVER GLUCOSE METER Timed 03/14/2024 11:31 AM FUEL OIL TRUCK DRIVER GLUCOSE METER Timed 03/14/2024 7:44 AM FUEL OIL TRUCK DRIVER SCAN-CARDIAC STRIP 03/14/2024 7: 03 AM FUEL OIL TRUCK DRIVER BASIC METABOLIC PANEL Early AM 03/14/2024 6:39 AM FUEL OIL TRUCK DRIVER GLUCOSE METER Timed 03/13/2024 9:36 PM FUEL OIL TRUCK DRIVER POTASSIUM Timed 03/13/2024 6:50 PM FUEL OIL TRUCK DRIVER GLUCOSE METER Timed 03/13/2024 4:54 PM FUEL OIL TRUCK DRIVER POTASSIUM Timed 03/13/2024 12:59 PM FUEL OIL TRUCK DRIVER GLUCOSE METER Timed 03/13/2024 12:08 PM FUEL OIL TRUCK DRIVER GLUCOSE METER Timed 03/13/2024 7:38 AM FUEL OIL TRUCK DRIVER HEPATIC FUNCTION PANEL Early AM 03/13/2024 7:37 AM FUEL OIL TRUCK DRIVER BASIC METABOLIC PANEL Early AM 03/13/2024 7:37 AM FUEL OIL TRUCK DRIVER SCAN-CARDIAC STRIP 03/13/2024 2: 08 AM FUEL OIL TRUCK DRIVER GLUCOSE METER Timed 03/12/2024 10:28 PM FUEL OIL TRUCK DRIVER GLUCOSE METER Timed 03/12/2024 5:13 PM FUEL OIL TRUCK DRIVER GLUCOSE METER Timed 03/12/2024 11:37 AM FUEL OIL TRUCK DRIVER NM TOTAL BLOOD VOLUME Routine 03/12/2024 11:10 AM FUEL OIL TRUCK DRIVER HEMATOCRIT Today 03/12/2024 8:50 AM FUEL OIL TRUCK DRIVER GLUCOSE METER Timed 03/12/2024 6:48 AM FUEL OIL TRUCK DRIVER BASIC METABOLIC PANEL Early AM 03/12/2024 6:31 AM FUEL OIL TRUCK DRIVER SCAN-CARDIAC STRIP 03/12/2024 1: 10 AM FUEL OIL TRUCK DRIVER GLUCOSE METER Timed 03/11/2024 9:17 PM FUEL OIL TRUCK DRIVER GLUCOSE METER Timed 03/11/2024 5:28 PM FUEL OIL TRUCK DRIVER POTASSIUM Timed 03/11/2024 3:26 PM FUEL OIL TRUCK DRIVER GLUCOSE METER Timed 03/11/2024 11:34 AM FUEL OIL TRUCK DRIVER BLOOD GAS,VENOUS Early AM 03/11/2024 8:04 AM FUEL OIL TRUCK DRIVER PRO-BNP Early AM 03/11/2024 7:18 AM FUEL OIL TRUCK DRIVER BASIC METABOLIC PANEL Early AM 03/11/2024 7:18 AM FUEL OIL TRUCK DRIVER GLUCOSE METER Timed 03/11/2024 7:01 AM FUEL OIL TRUCK DRIVER SCAN-CARDIAC STRIP 03/11/2024 1: 22 AM FUEL OIL TRUCK DRIVER GLUCOSE METER Timed 03/10/2024 11:58 PM FUEL OIL TRUCK DRIVER GLUCOSE METER Timed 03/10/2024 9:42 PM FUEL OIL TRUCK DRIVER GLUCOSE METER Timed 03/10/2024 5:36 PM FUEL OIL TRUCK DRIVER BASIC METABOLIC PANEL Today 03/10/2024 1:53 PM FUEL OIL TRUCK DRIVER GLUCOSE METER Timed 03/10/2024 11:33 AM FUEL OIL TRUCK DRIVER MAGNESIUM Early AM 03/10/2024 8:31 AM FUEL OIL TRUCK DRIVER BLOOD GAS,VENOUS Early AM 03/10/2024 8:31 AM FUEL OIL TRUCK DRIVER BASIC METABOLIC PANEL Early AM 03/10/2024 8:31 AM FUEL OIL TRUCK DRIVER GLUCOSE METER Timed 03/10/2024 7:57 AM FUEL OIL TRUCK DRIVER SCAN-CARDIAC STRIP 03/10/2024 5: 42 AM FUEL OIL TRUCK DRIVER GLUCOSE METER Timed 03/09/2024 9:53 PM FUEL OIL TRUCK DRIVER GLUCOSE METER Timed 03/09/2024 5:14 PM FUEL OIL TRUCK DRIVER GLUCOSE METER Timed 03/09/2024 11:57 AM FUEL OIL TRUCK DRIVER GLUCOSE METER Timed 03/09/2024 7:36 AM FUEL OIL TRUCK DRIVER BLOOD GAS,VENOUS Early AM 03/09/2024 7:00 AM FUEL OIL TRUCK DRIVER BASIC METABOLIC PANEL Early AM 03/09/2024 7:00 AM FUEL OIL TRUCK DRIVER SCAN-CARDIAC STRIP 03/09/2024 1: 41 AM FUEL OIL TRUCK DRIVER GLUCOSE METER Timed 03/08/2024 9:06 PM FUEL OIL TRUCK DRIVER GLUCOSE METER Timed 03/08/2024 5:13 PM FUEL OIL TRUCK DRIVER GLUCOSE METER Timed 03/08/2024 11:29 AM FUEL OIL TRUCK DRIVER SPUTUM CULTURE, STAIN Today 03/08/2024 9:10 AM FUEL OIL TRUCK DRIVER GLUCOSE METER Timed 03/08/2024 7:00 AM FUEL OIL TRUCK DRIVER MAGNESIUM Early AM 03/08/2024 6:07 AM FUEL OIL TRUCK DRIVER BASIC METABOLIC PANEL Early AM 03/08/2024 6:07 AM FUEL OIL TRUCK DRIVER BLOOD GAS,VENOUS Early AM 03/08/2024 6:07 AM FUEL OIL TRUCK DRIVER SCAN-CARDIAC STRIP 03/08/2024 2: 08 AM FUEL OIL TRUCK DRIVER GLUCOSE METER Timed 03/07/2024 10:37 PM FUEL OIL TRUCK DRIVER BLOOD GAS,VENOUS Today 03/07/2024 9:58 PM FUEL OIL TRUCK DRIVER GLUCOSE METER Timed 03/07/2024 5:19 PM FUEL OIL TRUCK DRIVER NM TOTAL BLOOD VOLUME Routine 03/07/2024 4:33 PM FUEL OIL TRUCK DRIVER BLOOD GAS,VENOUS STAT 03/07/2024 3:13 PM FUEL OIL TRUCK DRIVER SCAN CORRESP-EKG RESULTS 03/07/2024 1:40 PM FUEL OIL TRUCK DRIVER SCAN CORRESP-IMAGING 03/07/2024 1:40 PM FUEL OIL TRUCK DRIVER HEMATOCRIT SELENA 03/07/2024 12:40 PM FUEL OIL TRUCK DRIVER ECHO TTE LIMITED W CONTRAST W COLOR W DOPPLER Routine 03/07/2024 12:33 PM FUEL OIL TRUCK DRIVER GLUCOSE METER Timed 03/07/2024 12:19 PM FUEL OIL TRUCK DRIVER POTASSIUM SELENA 03/07/2024 11:20 AM FUEL OIL TRUCK DRIVER BLOOD GAS,VENOUS SELENA 03/07/2024 11:2 0 AM FUEL OIL TRUCK DRIVER EKG 12 LEAD SELENA 03/07/2024 8:35 AM FUEL OIL TRUCK DRIVER GLUCOSE METER Timed 03/07/2024 8:11 AM FUEL OIL TRUCK DRIVER PROCALCITONIN Early AM 03/07/2024 6:34 AM FUEL OIL TRUCK DRIVER BASIC METABOLIC PANEL Early AM 03/07/2024 6:33 AM FUEL OIL TRUCK DRIVER BLOOD GAS,VENOUS Early AM 03/07/2024 6:33 AM FUEL OIL TRUCK DRIVER SCAN-CARDIAC STRIP 03/07/2024 1: 39 AM FUEL OIL TRUCK DRIVER GLUCOSE METER Timed 03/07/2024 12:36 AM FUEL OIL TRUCK DRIVER BASIC METABOLIC PANEL STAT 03/07/2024 12:06 AM FUEL OIL TRUCK DRIVER AMMONIA STAT 03/07/2024 12:06 AM FUEL OIL TRUCK DRIVER LACTATE VENOUS STAT 03/07/2024 12:06 AM FUEL OIL TRUCK DRIVER BLOOD GAS,VENOUS STAT 03/07/2024 12:0 6 AM FUEL OIL TRUCK DRIVER SCAN CORRESP-EKG RESULTS 03/07/2024 12:00 AM FUEL OIL TRUCK DRIVER GLUCOSE METER Timed 03/06/2024 9:27 PM FUEL OIL TRUCK DRIVER SCAN-CARDIAC STRIP 03/06/2024 6: 41 PM FUEL OIL TRUCK DRIVER EKG 12 LEAD Routine 03/06/2024 6:14 PM FUEL OIL TRUCK DRIVER GLUCOSE METER Timed 03/06/2024 5:54 PM FUEL OIL TRUCK DRIVER XR CHEST 1 VIEW PORTABLE SELENA 03/06/2024 5:22 PM FUEL OIL TRUCK DRIVER RESPIRATORY PANEL MULTIPLEX PCR Today 03/06/2024 4:35 PM FUEL OIL TRUCK DRIVER PRO-BNP SELENA 03/06/2024 4:22 PM FUEL OIL TRUCK DRIVER BASIC METABOLIC PANEL SELENA 03/06/2024 4:22 PM FUEL OIL TRUCK DRIVER CBC W PLT NO DIFF SELENA 03/06/2024 4:2 2 PM FUEL OIL TRUCK DRIVER BLOOD GAS,VENOUS SELENA 03/06/2024 4:22 PM FUEL OIL TRUCK DRIVER SCAN-RADIOLOGY REPORT 03/06/2024 12:00 AM FUEL OIL TRUCK DRIVER PRO-BNP Routine 02/16/2024 7:53 AM FUEL OIL TRUCK DRIVER URINE ALBUMIN TO CREATININE RATIO, RANDOM Routine 02/16/2024 7:53 AM FUEL OIL TRUCK DRIVER Type 2 diabetes mellitus without complication, without long-term current use of insulin (HC) BASIC METABOLIC PANEL Routine 02/16/2024 7:30 AM FUEL OIL TRUCK DRIVER Chronic diastolic heart failure (HC) PRO-BNP Routine 02/16/2024 7:30 AM FUEL OIL TRUCK DRIVER Chronic diastolic heart failure (HC) BASIC METABOLIC [...] Health Maintenance Results * (ABNORMAL) GLUCOSE METER (03/17/2024 11:39 AM FUEL OIL TRUCK DRIVER) Only the most recent of47 resultswithin the time period is included. [facility] Signature GLUCOSE METER 197(H) 65 - 100 mg/dL 03/17/2024 11:39 AM FUEL OIL TRUCK DRIVER [facility] [employer] [facility] Blood BLOOD SPECIMEN / Unknown 03/17/2024 11:39 AM FUEL OIL TRUCK DRIVER 03/17/2024 11:39 AM FUEL OIL TRUCK DRIVER us Mónica Otero MD CHEMISTRY Final R esult [facility] [address] [place] [address], * SCAN-CARDIAC STRIP (03/17/2024 8:00 AM FUEL OIL TRUCK DRIVER) us Scanner OTHER Final Result * (ABNORMAL) SODIUM (03/17/2024 6:08 AM FUEL OIL TRUCK DRIVER) SODIUM 133(L) 136 - 145 mmol/L 03/17/2024 6:55 AM FUEL OIL TRUCK DRIVER [facility] Blood BLOOD SPECIMEN / Unknown Venipuncture / Unknown 03/17/2024 6:08 AM FUEL OIL TRUCK DRIVER 03/17/2024 6:14 AM FUEL OIL TRUCK DRIVER Mónica Otero MD CHEMISTRY Final R esult Performing Organization Address City/[facility]/ZIP Co de Phone Number [facility] [address] [phone], [place] * POTASSIUM (03/17/2024 6:08 AM FUEL OIL TRUCK DRIVER) Only the most recent of7 resultswithin the time period is included. POTASSIUM 3.8 3.5 - 5.1 mmol/L 03/17/2024 6:55 AM FUEL OIL TRUCK DRIVER [facility] Blood BLOOD SPECIMEN / Unknown Venipuncture / Unknown 03/17/2024 6:08 AM FUEL OIL TRUCK DRIVER 03/17/2024 6:14 AM FUEL OIL TRUCK DRIVER Mónica Otero MD CHEMISTRY [facility] Performing Organization Address [facility] de Phone Number [facility] [address] [place] [address], [place] * (ABNORMAL) CREATININE (03/17/2024 6:08 AM FUEL OIL TRUCK DRIVER) eGFR 29(L) >90 mL/min/1.7 3m2 03/17/2024 6:55 AM FUEL OIL TRUCK DRIVER [facility] Comment:As of 2021, eG FR is calculated by the CKD-EPI creatinine equation without race adjustment. eGFR can be influenced by muscle mass, exercise, and diet. The reported eGFR is an estimation only and is only applicable if the renal function is stable. CREATININE 2.37(H) 0.70 - 1.20 mg/dL 03/17/2024 6:55 AM [facility] Blood BLOOD SPECIMEN / Unknown Venipuncture / Unknown 03/17/2024 6:08 AM FUEL OIL TRUCK DRIVER 03/17/2024 6:14 AM FUEL OIL TRUCK DRIVER us Mónica Otero MD CHEMISTRY Final R esult [facility] [address] [place] [address], [place] * SCAN-CARDIAC STRIP (03/17/2024 3:46 AM FUEL OIL TRUCK DRIVER) us Scanner OTHER Final Result * (ABNORMAL) BASIC METABOLIC PANEL (03/16/2024 11:06 AM FUEL OIL TRUCK DRIVER) Only the most recent of17 resultswithin the time period is included. SODIUM 131(L) 136 - 145 mmol/L 03/16/2024 11:47 AM [facility] POTASSIUM 4.5 3.5 - 5.1 mmol/L 03/16/2024 11:47 AM [facility] CHLORIDE 82(L) 98 - 107 mmol/L 03/16/2024 11:47 AM [facility] CO2,TOTAL 33(H) 22 - 29 mmol/L 03/16/2024 11:47 AM [facility] ANION GAP 16 5 - 18 03/16/2024 11:47 AM [facility] GLUCOSE 171(H) 70 - 99 mg/dL 03/16/2024 11:47 AM [facility] CALCIUM 10.3 8.8 - 10.4 mg/dL 03/16/2024 11:47 AM [facility] Comment: Reference ranges for this test were updated on 02/14/2024 to reflect our healthy population more accurately. Reference range changes are not retroactively applied to results, but previous results using the same methodology can be interpreted in the context of the new reference range. BUN 110(H) 8 - 23 mg/dL 03/16/2024 11:47 AM [facility] CREATININE 2.78(H) 0.70 - 1.20 mg/dL 03/16/2024 11:47 AM FUEL OIL TRUCK DRIVER [facility] BUN/CREAT RATIO 40(H) 10 - 20 11:47 AM FUEL OIL TRUCK DRIVER [facility] eGFR 24(L) >90 mL/min/1. 73m2 03/16/2024 11:47 AM FUEL OIL TRUCK DRIVER [facility] Comment:As of 2021, eG FR is calculated by the CKD-EPI creatinine equation without race adjustment. eGFR can be influenced by muscle mass, exercise, and diet. The reported eGFR is an estimation only and is only applicable if the renal function is stable. Blood BLOOD SPECIMEN / Unknown Butterfly / Unknown 03/16/2024 11:06 AM FUEL OIL TRUCK DRIVER 03/16/2024 11:13 AM FUEL OIL TRUCK DRIVER us Adan Zamudio NP CHEMISTRY Final Re sult [facility] [address] [place] [phone], * SCAN-CARDIAC STRIP (03/16/2024 12:57 AM FUEL OIL TRUCK DRIVER) us Scanner OTHER Final Result * CVL OTHER PROCEDURE (03/15/2024 9:04 AM FUEL OIL TRUCK DRIVER) Anatomical Region Laterality Modality Other 03/15/2024 9:04 AM FUEL OIL TRUCK DRIVER us Provider Referring CV IMAGING Final Result * PRO-BNP (03/15/2024 8:12 AM FUEL OIL TRUCK DRIVER) Only the most recent of6 resultswithin the time period is included. PRO-BNP 86 <125 pg/mL 03/15/2024 9:23 AM FUEL OIL TRUCK DRIVER [facility] Blood BLOOD SPECIMEN / Unknown Venipuncture / Unknown 03/15/2024 8:12 AM FUEL OIL TRUCK DRIVER 03/15/2024 8:30 AM FUEL OIL TRUCK DRIVER Narrative [facility] - 03/15/2024 9:23 AM FUEL OIL TRUCK DRIVER The following cut-points have been suggested for [...] of 72% for acute congestive heart failure. us Adan Zamudio NP SEND OUTS Final Re [facility] Organization Address City/State/ZIP Co de Phone Number [facility] [address] [place] [phone], * SCAN-CARDIAC STRIP (03/15/2024 5:21 AM FUEL OIL TRUCK DRIVER) us Scanner OTHER Final Result * SCAN-CARDIAC STRIP (03/14/2024 7:03 AM FUEL OIL TRUCK DRIVER) us Scanner OTHER Final Result * (ABNORMAL) HEPATIC FUNCTION PANEL (03/13/2024 7:37 AM FUEL OIL TRUCK DRIVER) ALBUMIN 3.9(L) 4.0 - 4.9 g/dL 03/13/2024 8:26 AM FUEL OIL TRUCK DRIVER [facility]uro FreelancersST. [facility] PROTEIN,TOTAL 8.0 6.0 - 8.0 g/dL 03/13/2024 8:26 AM FUEL OIL TRUCK DRIVER [facility]pir[facility] BILIRUBIN,TOTAL 0.8 0.0 - 1.2 mg/dL 03/13/2024 8:26 AM FUEL OIL TRUCK DRIVER [facility] BILIRUBIN,DIRECT 0.3(H) 0.0 - 0.2 mg/dL 03/13/2024 8:26 AM FUEL OIL TRUCK DRIVER [facility] BILIRUBIN,INDIRE CT 0.5 0.2 - 0.8 mg/dL 03/13/2024 8:26 AM FUEL OIL TRUCK DRIVER [facility] ALK PHOSPHATASE 55 40 - 129 IU/L 03/13/2024 8:26 AM FUEL OIL TRUCK DRIVER [facility] ALT (SGPT) 8(L) 10 - 50 IU/L 03/13/2024 8:26 AM FUEL OIL TRUCK DRIVER [facility] AST (SGOT) 17 10 - 50 IU/L 03/13/2024 8:26 AM FUEL OIL TRUCK DRIVER [facility] Blood BLOOD SPECIMEN / Unknown Butterfly / Unknown 03/13/2024 7:37 AM FUEL OIL TRUCK DRIVER 03/13/2024 7:50 AM FUEL OIL TRUCK DRIVER us Adan Zamudio NP CHEMISTRY Final Re sult [facility] [address] [place] [id number], [place] * SCAN-CARDIAC STRIP (03/13/2024 2:08 AM FUEL OIL TRUCK DRIVER) us Scanner OTHER Final Result * NM TOTAL BLOOD VOLUME (03/12/2024 11:10 AM FUEL OIL TRUCK DRIVER) Only the most recent of2 resultswithin the time period is included. Anatomical Region Laterality Modality Nuclear Medicine Narrative 03/12/2024 2:55 PM FUEL OIL TRUCK DRIVER Patient name: Marisabel Coleman Study date: March 12, 2024 TOTAL BLOOD VOLUME ANALYSIS 68 y.o. male HEIGHT: 6 feet 4 inches WEIGHT: 472 pounds Findings: Total blood volume showed an extreme excess of 41.7% (3966 ml excess). Red blood cell volume showed an extreme excess of 46.5% (1790 ml excess). Plasma volume showed an extreme excess of 38.5% (2176 ml excess). Patient Result [place] Patient Total Blood Volume 64651 ml 9502 ml Red Blood Cell Volume 5642 ml 3852 ml Plasma Volume 7826 ml 5650 ml Peripheral Venous Hct: 46.5% Normalized Hct: 65.9% Albumin Transudation Rate: 0.12%/min. (Normal: 0 to 0.25%, Elevated: 0.25 to 0.4%, High: 0.4 to 0.5%, Unusually High: >0.5%) Radiopharmaceutical: 6.1 uCi Volumex HSA I-131 Blood Volume Interpretation Guide Normal Mild Moderate Severe Extreme BV, PV Deviation (+/-%) 0 to 8 >8 to 16 >16 to 24 >24 to 32 >32 RCV Deviation (+/-%) 0 to 10 >10 to 20 >20 to 30 >30 to 40 >40 A preliminary report of findings was communicated to Adan Zamudio by Davon Miller at 1115 on 03/12/24. This study was reviewed by: Casa Kenyon MD Cardiology us Hailey Rico NP NM Final R esult * HEMATOCRIT (03/12/2024 8:50 AM FUEL OIL TRUCK DRIVER) Only the most recent of2 resultswithin the time period is included. HEMATOCRIT 46.5 37.0 - 53.0 % 03/12/2024 9:06 AM FUEL OIL TRUCK DRIVER [facility] Blood BLOOD SPECIMEN / Unknown Non-Lab Venipuncture / Unknown 03/12/2024 8:50 AM FUEL OIL TRUCK DRIVER 03/12/2024 9:00 AM FUEL OIL TRUCK DRIVER Narrative [facility] - 03/12/2024 9:06 AM FUEL OIL TRUCK DRIVER The sample has already been drawn and sent to the lab. Thanks! us Mónica Otero MD HEMATOLOGY Final R esult [facility] [address] [place] [address], * SCAN-CARDIAC STRIP (03/12/2024 1:10 AM FUEL OIL TRUCK DRIVER) us Scanner OTHER Final Result * (ABNORMAL) BLOOD GAS,VENOUS (03/11/2024 8:04 AM FUEL OIL TRUCK DRIVER) Only the most recent of10 resultswithin the time period is included. PH, VENOUS 7.45(H) 7.32 - 7.43 03/11/2024 8:32 AM FUEL OIL TRUCK DRIVER [facility] PCO2, VENOUS 76(HH) 41 - 51 mmHg 03/11/2024 8:32 AM FUEL OIL TRUCK DRIVER [facility] PO2, VENOUS 38 35 - 40 mmHg 03/11/2024 8:32 AM FUEL OIL TRUCK DRIVER [facility] HCO3,VENOUS 53(H) 22 - 29 mmol/L 03/11/2024 8:32 AM FUEL OIL TRUCK DRIVER [facility] BASE EXCESS, VENOUS, POCT 23.8(H) -2.0 - 3.0 03/11/2024 8:32 AM [facility] O2 SATURATION, VENOUS 58(L) 70 - 75 % 03/11/2024 8:32 AM FUEL OIL TRUCK DRIVER [facility] PATIENT TEMPERATURE 37.0 Degrees C 03/11/2024 8:32 AM FUEL OIL TRUCK DRIVER [facility] Blood VENOUS BLOOD SPECIMEN / Unknown Butterfly / Unknown 03/11/2024 8:04 AM FUEL OIL TRUCK DRIVER 03/11/2024 8:09 AM FUEL OIL TRUCK DRIVER us Thomas Delarosa MD CHEMISTRY Final Resul t [facility] [address] [place] [phone], * SCAN-CARDIAC STRIP (03/11/2024 1:22 AM FUEL OIL TRUCK DRIVER) us Scanner OTHER Final Result * Magnesium AM (03/10/2024 8:31 AM FUEL OIL TRUCK DRIVER) Only the most recent of2 resultswithin the time period is included. MAGNESIUM 2.0 1.6 - 2.4 mg/dL 03/10/2024 9:40 AM FUEL OIL TRUCK DRIVER [facility] Blood BLOOD SPECIMEN / Unknown Butterfly / Unknown 03/10/2024 8:31 AM FUEL OIL TRUCK DRIVER 03/10/2024 8:42 AM FUEL OIL TRUCK DRIVER us Nichelle Herrmann MD CHEMISTRY Final Resul t Performing Organization Address City/[facility]/ZIP Co de Phone Number [facility] [address] [place] [address], [place] * SCAN-CARDIAC STRIP (03/10/2024 5:42 AM FUEL OIL TRUCK DRIVER) us Scanner OTHER Final Result * SCAN-CARDIAC STRIP (03/09/2024 1:41 AM FUEL OIL TRUCK DRIVER) us Scanner OTHER Final Result * SPUTUM CULTURE, STAIN (03/08/2024 9:10 AM FUEL OIL TRUCK DRIVER) CULTURE Usual jerry 03/10/2024 1:42 PM FUEL OIL TRUCK DRIVER [facility] GRAM STAIN 1+ PMNs 03/10/2024 1:42 PM FUEL OIL TRUCK DRIVER [facility] GRAM STAIN No RBCs 03/10/2024 1:42 PM FUEL OIL TRUCK DRIVER [facility] GRAM STAIN No Epithelial cells 03/10/2024 1:42 PM FUEL OIL TRUCK DRIVER [facility] GRAM STAIN 1+ Gram Positive Cocci 03/10/2024 1:42 PM FUEL OIL TRUCK DRIVER [facility] GRAM STAIN 1+ Gram Positive Bacilli 03/10/2024 1:42 PM FUEL OIL TRUCK DRIVER [facility] GRAM STAIN 1+ Gram Negative Bacilli 03/10/2024 1:42 PM FUEL OIL TRUCK DRIVER [facility] Sputum SPUTUM SPECIMEN / Unknown Non-Blood / Unknown 03/08/2024 9:10 AM FUEL OIL TRUCK DRIVER 03/08/2024 9:15 AM FUEL OIL TRUCK DRIVER us Clarence Mccormick MD MICROBIOLOGY Final Resu lt Performing Organization Address [facility] Co de Phone Number [facility] [address] [place] [address], [place] * SCAN-CARDIAC STRIP (03/08/2024 2:08 AM FUEL OIL TRUCK DRIVER) us Scanner OTHER Final Result * SCAN CORRESP-EKG RESULTS (03/07/2024 1:40 PM FUEL OIL TRUCK DRIVER) Only the most recent of2 resultswithin the time period is included. Narrative 03/07/2024 1:40 PM FUEL OIL TRUCK DRIVER Ordered by an unspecified provider. us Other Clinical Staff OTHER Final Resul t * SCAN CORRESP-IMAGING (03/07/2024 1:40 PM FUEL OIL TRUCK DRIVER) Anatomical Region Laterality Modality Other Narrative 03/07/2024 1:40 PM FUEL OIL TRUCK DRIVER Ordered by an unspecified provider. us Other Clinical Staff OTHER Final Resul t * ECHO TTE LIMITED W CONTRAST W COLOR W DOPPLER (03/07/2024 12:33 PM FUEL OIL TRUCK DRIVER) AORTIC VALVE MEAN PG 3 mmHg PEAK TR VELOCITY 3.0 m/s LVEDD 6.3 cm EJECTION FRACTION 55 - 60% Anatomical Region Laterality Modality Ultrasound 03/07/2024 10:2 3 AM FUEL OIL TRUCK DRIVER Narrative 03/07/2024 12:59 PM FUEL OIL TRUCK DRIVER ECHOCARDIOGRAM MARISABEL COLEMAN : 1955 68 years Study Date: 03/07/2024 10:23:50 AM Gender: M BP: 122/71 mmHg Height: 183.00 cm BSA: 3.17 m Weight: 231.00 kg Tech: MANISH Referring MD: NICHELLE HERRMANN Site: [facility] Reading Location: [facility] Patient Location: Inpatient. Procedure: Limited Echo w/ Contrast, Color Doppler and Limited Spectral Doppler. Indication for study: Heart failure Cardiac Rhythm: Irregular and unknown.Study quality: Technically limited. Imaging limitations: This study was subject to imaging limitations due to lying in a supine position and body habitus. Final Impressions: Limited Echocardiogram performed 1. Very poor image quality due to patient factors. Visually, an estimated EF of 55 - 60%. 2. No significant valvular pathology as best determined on this study. 3. Echo contrast was administered to enhance visualization of all left ventricular segments. 4. Mildly increased estimated pulmonary pressures by tricuspid regurgitation velocity and right atrial pressure (37 mmHg plus RAP). 5. The aortic sinus is normal for age/sex/bsa with a maximal diameter of 4.4 cm. 6. The ascending aorta is normal for age/sex/bsa with a maximal diameter of 4.0 cm. Comparison Compared to prior exam of 11/26/2022, there has been no significant change. Chamber Sizes and Function Moderately increased left ventricular size, mildly increased wall thickness, normal global systolic function with an estimated EF of 55 - 60%. No resting regional wall motion abnormality visualized. Left atrial size is not well visualized. Right ventricular cavity size is not well visualized, global systolic RV function is not well visualized. The right atrium is not well visualized. The sinus of Valsalva is normal for age/sex/bsa. The ascending aorta is normal for age/sex/bsa. Valves, RV Pressures and Diastolic Function The aortic valve is trileaflet and sclerotic, no stenosis and no regurgitation. The mitral valve is normal in structure, trace mitral regurgitation. The tricuspid valve is normal in structure. Tricuspid regurgitation is trace. The tricuspid regurgitant velocity is 3.0 m/s, the estimated right ventricular systolic pressure is 37 mmHg plus right atrial pressure. There is mildly increased estimated pulmonary pressure by tricuspid regurgitation velocity and right atrial pressure. The pulmonic valve is normal. No pulmonic regurgitation is present on color flow. Masses, Effusion, Shunts There is no pericardial effusion. The inferior vena cava is not well visualized. MEASUREMENTS AND CALCULATIONS 2-D Measurements and LV Function: LVID (d) 6.2 cm LV FS% (2D) 30 % LVID (s) 4.4 cm LVOT diameter 3.0 cm IVS (d) 1.2 cm HR 56 bpm LVPW (d) 1.3 cm Ao Sinus 4.4 cm Asc Ao 4.0 cm Diastology: Mitral Tissue Doppler E Peak 0.70 m/s e', Septum 0.07 m/s A Peak 0.40 m/s e', Lateral 0.14 m/s E/A 1.8 E/e' Average 6.64 DT 239 msec Aortic Valve: Vmax 1.2 m/s RADHA (V) 5.03 cm VTI 0.24 m RADHA (I) 5.34 cm LVOT V max 0.9 m/s Max PG 6 mmHg LVOT VTI 0.18 m Mean PG 3 mmHg SV 131 ml Dim Index 0.76 SV index 41 ml/m CO 7.3 l/min CI 2.3 l/min/m Mitral Valve: MVA 3.2 cm MV P 1/2 69 msec Tricuspid Valve and estimated PA pressures: TR Vmax 3.0 m/s TR maxG 37 mmHg Contrast documentation: 2 ml diluted Definity, lot #[id number], [facility]# [id number] was administered peripherally to enhance visualization of all left ventricular segments. . This study was interpreted by an [facility] accredited facility. Final Procedure Note Sony Avendano MD - 03/07/2024 ECHOCARDIOGRAM MARISABEL COLEMAN : 1955 68 years Study Date: 03/07/2024 10:23:50 AM Gender: M BP: 122/71 mmHg Height: 183.00 cm BSA: 3.17 m Weight: 231.00 kg Tech: MANISH Referring MD: NICHELLE HERRMANN Site: [facility] Reading Location: [facility] Patient Location: Inpatient. Procedure: Limited Echo w/ Contrast, Color Doppler and Limited SpectralDoppler. Indication for study: Heart failure Cardiac Rhythm: Irregular and unknown.Study quality: Technicallylimited. Imaging limitations: This study was subject to imaging limitations due tolying in a supine position and body habitus. Final Impressions: Limited Echocardiogram performed 1. Very poor image quality due to patient factors. Visually, an estimatedEF of 55 - 60%. 2. No significant valvular pathology as best determined on this study. 3. Echo contrast was administered to enhance visualization of all leftventricular segments. 4. Mildly increased estimated pulmonary pressures by tricuspidregurgitation velocity and right atrial pressure (37 mmHg plus RAP). 5. The aortic sinus is normal for age/sex/bsa with a maximal diameter of4.4 cm. 6. The ascending aorta is normal for age/sex/bsa with a maximal diameterof 4.0 cm. Comparison Compared to prior exam of 11/26/2022, there has been no significantchange. Chamber Sizes and Function Moderately increased left ventricular size, mildly increased wallthickness, normal global systolic function with an estimated EF of 55 -60%. No resting regional wall motion abnormality visualized. Left atrialsize is not well visualized. Right ventricular cavity size is not wellvisualized, global systolic RV function is not well visualized. The rightatrium is not well visualized. The sinus of Valsalva is normal forage/sex/bsa. The ascending aorta is normal for age/sex/bsa. Valves, RV Pressures and Diastolic Function The aortic valve is trileaflet and sclerotic, no stenosis and noregurgitation. The mitral valve is normal in structure, trace mitralregurgitation. The tricuspid valve is normal in structure. Tricuspidregurgitation is trace. The tricuspid regurgitant velocity is 3.0 m/s, theestimated right ventricular systolic pressure is 37 mmHg plus right atrialpressure. There is mildly increased estimated pulmonary pressure bytricuspid regurgitation velocity and right atrial pressure. The pulmonicvalve is normal. No pulmonic regurgitation is present on color flow. Masses, Effusion, Shunts There is no pericardial effusion. The inferior vena cava is not wellvisualized. MEASUREMENTS AND CALCULATIONS 2-D Measurements and LV Function: LVID (d) 6.2 cm LV FS% (2D) 30 % LVID (s) 4.4 cm LVOT diameter 3.0 cm IVS (d) 1.2 cm HR 56 bpm LVPW (d) 1.3 cm Ao Sinus 4.4 cm Asc Ao 4.0 cm Diastology: Mitral Tissue Doppler E Peak 0.70 m/s e', Septum 0.07 m/s A Peak 0.40 m/s e', Lateral 0.14 m/s E/A 1.8 E/e' Average 6.64 DT 239 msec Aortic Valve: Vmax 1.2 m/s RADHA (V) 5.03 cm VTI 0.24 m RADHA (I) 5.34 cm LVOT V max 0.9 m/s Max PG 6 mmHg LVOT VTI 0.18 m Mean PG 3 mmHg SV 131 ml Dim Index 0.76 SV index 41 ml/m CO 7.3 l/min CI 2.3 l/min/m Mitral Valve: MVA 3.2 cm MV P 1/2 69 msec Tricuspid Valve and estimated PA pressures: TR Vmax 3.0 m/s TR maxG 37 mmHg Contrast documentation: 2 ml diluted Definity, lot #[id number], [facility]#[id number] was administered peripherally to enhance visualization of allleft ventricular segments. . This study was interpreted by an [facility] accredited facility. Final us Nichelle Herrmann MD ECHO ORD Final Resul t * ECG TODAY (03/07/2024 8:35 AM FUEL OIL TRUCK DRIVER) Only the most recent of2 resultswithin the time period is included. Interpretation Sinus rhythm with 1st degree A-V block with Premature atrial complexes Left axis deviation Right bundle branch block Abnormal ECG When compared with ECG of 06-Mar-2024 18:14, (Unconfirmed) Premature atrial complexes are now Present Nonspecific T wave abnormality has replaced inverted T waves in Inferior leads T wave inversion less evident in Anterior leads BEYOND NOW Ventricular Rate 64 BPM BEYOND NOW Atrial Rate 64 BPM BEYOND NOW P-R Interval 262 ms BEYOND NOW QRS Duration 192 ms BEYOND NOW QT 498 ms BEYOND NOW QTc 513 ms BEYOND NOW P Norton 50 degrees BEYOND NOW R Norton -74 degrees BEYOND NOW T Norton 37 degrees BEYOND NOW 03/07/2024 8:35 AM FUEL OIL TRUCK DRIVER 03/07/2024 6:36 PM FUEL OIL TRUCK DRIVER us Nichelle Herrmann MD EKG ORD Final Resul t BEYOND NOW [place], [place] * PROCALCITONIN (03/07/2024 6:34 AM FUEL OIL TRUCK DRIVER) PROCALCITONIN 0.17 ng/ml 03/07/2024 7:45 AM FUEL OIL TRUCK DRIVER [facility] Blood BLOOD SPECIMEN / Unknown Butterfly / Unknown 03/07/2024 6:34 AM FUEL OIL TRUCK DRIVER 03/07/2024 6:43 AM FUEL OIL TRUCK DRIVER Narrative [facility] - 03/07/2024 7:45 AM FUEL OIL TRUCK DRIVER Procalcitonin for initial assessment of Lower Respiratory [...] any concentrations < 2 ng/mL are obtained. us Nichelle Herrmann MD SEND OUTS Final Resul t [facility] [address] [place] [address], * SCAN-CARDIAC STRIP (03/07/2024 1:39 AM FUEL OIL TRUCK DRIVER) us Scanner OTHER Final Result * Lactate STAT (venous) (03/07/2024 12:06 AM FUEL OIL TRUCK DRIVER) Only the most recent of2 resultswithin the time period is included. LACTATE,VENOUS 1.7 0.5 - 2.0 mmol/L 03/07/2024 12:49 AM FUEL OIL TRUCK DRIVER [facility] Blood BLOOD SPECIMEN / Unknown Venipuncture / Unknown 03/07/2024 12:06 AM FUEL OIL TRUCK DRIVER 03/07/2024 12:12 AM FUEL OIL TRUCK DRIVER Thomas Kenyalingrafaela DO CHEMISTRY Final Result Performing Organization Address [facility] Co de Phone Number [facility] [address] [place] [address], [place] * Ammonia STAT (03/07/2024 12:06 AM FUEL OIL TRUCK DRIVER) Pathologist [facility] AMMONIA 37 11 - 51 umol/L 03/07/2024 12:49 AM FUEL OIL TRUCK DRIVER [facility] Blood BLOOD SPECIMEN / Unknown Venipuncture / Unknown 03/07/2024 12:06 AM FUEL OIL TRUCK DRIVER 03/07/2024 12:12 AM FUEL OIL TRUCK DRIVER Narrative [facility] - 03/07/2024 12:49 AM FUEL OIL TRUCK DRIVER 1. Sulfasalazine and its metabolite Sulfapyridine at therapeutic concentrations may lead to falsely low results. 2. Temozolomide and its metabolite MTIC may lead to falsely elevated results, and its metabolite AIC may lead to falsely low results. Thomas Elke DO CHEMISTRY Final Result Performing Organization Address [facility] Co de Phone Number [facility] [address] [place] [address], [place] * SCAN-CARDIAC STRIP (03/06/2024 6:41 PM FUEL OIL TRUCK DRIVER) us Scanner OTHER Final Result * XR CHEST 1 VIEW PORTABLE (03/06/2024 5:22 PM FUEL OIL TRUCK DRIVER) Anatomical Region Laterality Modality HEART, THORAX, CHEST Digital Rad iography 03/06/2024 6:34 PM FUEL OIL TRUCK DRIVER Narrative 03/06/2024 6:34 PM FUEL OIL TRUCK DRIVER For Patients: As a result of the Cures Act, medical imaging exams and procedure [...] MD @ 03/06/2024 6:34:57 PM (Electronically Signed) us Nichelle Herrmann MD GENERAL IMAGING Final Resul t * RESPIRATORY PANEL MULTIPLEX PCR (03/06/2024 4:35 PM FUEL OIL TRUCK DRIVER) Adenovirus NOT Detected 03/06/2024 6:20 PM FUEL OIL TRUCK DRIVER [facility] Coronavirus 229E NOT Detected 03/06/2024 6:20 PM FUEL OIL TRUCK DRIVER [facility] Coronavirus HKU1 NOT Detected 03/06/2024 6:20 PM FUEL OIL TRUCK DRIVER [facility] Coronavirus NL63 NOT Detected 03/06/2024 6:20 PM FUEL OIL TRUCK DRIVER [facility] Coronavirus OC43 NOT Detected 03/06/2024 6:20 PM FUEL OIL TRUCK DRIVER [facility] Human Metapneumovirus NOT Detected 03/06/2024 6:20 PM FUEL OIL TRUCK DRIVER [facility] Human Rhinovirus/Enterovi ino NOT Detected 03/06/2024 6:20 PM FUEL OIL TRUCK DRIVER [facility] Influenza A NOT Detected 03/06/2024 6:20 PM FUEL OIL TRUCK DRIVER [facility] Influenza B NOT Detected 03/06/2024 6:20 PM FUEL OIL TRUCK DRIVER [facility] Parainfluenza Virus 1 NOT Detected 03/06/2024 6:20 PM FUEL OIL TRUCK DRIVER [facility] Parainfluenza Virus 2 NOT Detected 03/06/2024 6:20 PM FUEL OIL TRUCK DRIVER [facility] Parainfluenza Virus 3 NOT Detected 03/06/2024 6:20 PM FUEL OIL TRUCK DRIVER [facility] Parainfluenza Virus 4 NOT Detected 03/06/2024 6:20 PM FUEL OIL TRUCK DRIVER [facility] Respiratory Syncytial Virus NOT Detected 03/06/2024 6:20 PM FUEL OIL TRUCK DRIVER [facility] SARS-Cov-2 NOT Detected 03/06/2024 6:20 PM FUEL OIL TRUCK DRIVER [facility] Bordetella pertussis NOT Detected 03/06/2024 6:20 PM FUEL OIL TRUCK DRIVER [facility] Bordetella Parapertussis NOT Detected 03/06/2024 6:20 PM FUEL OIL TRUCK DRIVER [facility] Chlamydophila pneumoniae NOT Detected 03/06/2024 6:20 PM FUEL OIL TRUCK DRIVER [facility] Mycoplasma pneumoniae NOT Detected 03/06/2024 6:20 PM [facility] Nasopharyngeal NASOPHARYNGEAL SWAB / Unknown Non-Blood / Unknown 03/06/2024 4:35 PM FUEL OIL TRUCK DRIVER 03/06/2024 4:48 PM FUEL OIL TRUCK DRIVER Narrative [facility] - 03/06/2024 6:20 PM FUEL OIL TRUCK DRIVER All PCR tests are subject to false negative results due to variability in viral/bacterial load and collection technique. This test does NOT detect MERS ( Respiratory Syndrome) or SARS-1 (Severe Acute Respiratory Syndrome). us Nichelle Herrmann MD MICROBIOLOGY Final Resul t [facility] [address] [place] [address], * (ABNORMAL) CBC no diff TODAY (03/06/2024 4:22 PM FUEL OIL TRUCK DRIVER) WHITE BLOOD COUNT 7.6 4.5 - 11.0 thou/cu mm 03/06/2024 4:39 PM [facility] RED BLOOD COUNT 5.48 4.30 - 5.90 mil/cu mm 03/06/2024 4:39 PM [facility] HEMOGLOBIN 12.7(L) 13.5 - 17.5 g/dL 03/06/2024 4:39 PM [facility] HEMATOCRIT 46.7 37.0 - 53.0 % 03/06/2024 4:39 PM [facility] MCV 85 80 - 100 fL 03/06/2024 4:39 PM [facility] MCH 23.2(L) 26.0 - 34.0 pg 03/06/2024 4:39 PM [facility] MCHC 27.2(L) 32.0 - 36.0 g/dL 03/06/2024 4:39 PM [facility] RDW 19.8(H) 11.5 - 15.5 % 03/06/2024 4:39 PM [facility] PLATELET COUNT 165 140 - 440 thou/cu mm 03/06/2024 4:39 PM FUEL OIL TRUCK DRIVER [facility] MPV 9.8 6.5 - 11.0 fL 03/06/2024 4:39 PM FUEL OIL TRUCK DRIVER [facility] NRBC 0.3 % 03/06/2024 4:39 PM FUEL OIL TRUCK DRIVER [facility] ABS NRBC 0.0 thou /cu mm 03/06/2024 4:39 PM FUEL OIL TRUCK DRIVER [facility] Blood BLOOD SPECIMEN / Unknown Butterfly / Unknown 03/06/2024 4:22 PM FUEL OIL TRUCK DRIVER 03/06/2024 4:28 PM FUEL OIL TRUCK DRIVER us Nichelle Herrmann MD HEMATOLOGY Final Resul t [facility] [address] [place] [address], [place] * SCAN-RADIOLOGY REPORT (03/06/2024 12:00 AM FUEL OIL TRUCK DRIVER) Anatomical Region Laterality Modality Other us Scanner OTHER Final Result * (ABNORMAL) URINE ALBUMIN TO CREATININE RATIO, RANDOM (02/16/2024 7:53 AM FUEL OIL TRUCK DRIVER) CREATININE, RANDOM URINE 109 20 - 320 mg/dL [facility] ALBUMIN, URINE 11.1 See Note: mg/dL [facility] Comment: Reference Range: Reference Range [...] URINE SPECIMEN / Unknown 02/16/2024 7:53 AM FUEL OIL TRUCK DRIVER 02/16/2024 7:54 AM FUEL OIL TRUCK DRIVER Narrative [facility] - 02/17/2024 5:30 AM FUEL OIL TRUCK DRIVER INCLUDES STAT TESTING; ROUTINE TESTING TO FOLLOW. us Pushpa Woodardn Hardeep DO URINE Final Result [facility] [address] [place] [address], [facility] [address] [place] [address] * (ABNORMAL) CBC WITH AUTO DIFFERENTIAL (01/06/2024 11:33 AM CDT) Only the most recent of2 resultswithin the time period is included. WHITE BLOOD COUNT 6.6 4.5 - 11.0 thou/cu mm 01/06/2024 12:04 PM [facility] RED BLOOD COUNT 4.69 4.30 - 5.90 mil/cu mm 01/06/2024 12:04 PM [facility] HEMOGLOBIN 12.0(L) 13.5 - 17.5 g/dL 01/06/2024 12:04 PM [facility] HEMATOCRIT 41.0 37.0 - 53.0 % 01/06/2024 12:04 PM [facility] MCV 87 80 - 100 fL 01/06/2024 12:04 PM [facility] MCH 25.6(L) 26.0 - 34.0 pg 01/06/2024 12:04 PM [facility] MCHC 29.3(L) 32.0 - 36.0 g/dL 01/06/2024 12:04 PM [facility] RDW 20.0(H) 11.5 - 15.5 % 01/06/2024 12:04 PM [facility] PLATELET COUNT 173 140 - 440 thou/cu mm 01/06/2024 12:04 PM [facility] MPV 10.1 6.5 - 11.0 fL 01/06/2024 12:04 PM [facility] % NEUT 66.3 % 01/06/2024 12:04 PM [facility] % LYMPH 17.4 % 01/06/2024 12:04 PM [facility] % MONO 11.8 % 01/06/2024 12:04 PM CDT [facility] % EOS 3.9 % 01/06/2024 12:04 PM CDT [facility] % BASO 0.6 % 01/06/2024 12:04 PM CDT [facility] ABSOLUTE NEUTROPHILS 4.4 1.7 - 7.0 thou/cu mm 01/06/2024 12:04 PM T [facility] ABSOLUTE LYMPHOCYTES 1.2 0.9 - 2.9 thou/cu mm 01/06/2024 12:04 PM T [facility] ABSOLUTE MONOCYTES 0.8 <0.9 thou/cu mm 01/06/2024 12:04 PM T [facility] ABSOLUTE EOSINOPHILS 0.3 <0.5 thou/cu mm 01/06/2024 12:04 PM T [facility] ABSOLUTE BASOPHILS 0.0 <0.3 thou/cu mm 01/06/2024 12:04 PM T [facility] Blood BLOOD SPECIMEN / Unknown Venipuncture / Unknown 01/06/2024 11:33 AM CDT 01/06/2024 11:36 AM CDT Jeny Moreira MD HEMATOLOGY Final Result [facility] [address] [place], [place] [id number] * (ABNORMAL) RED CELL MORPHOLOGY (01/06/2024 11:33 AM CDT) ELLIPTOCYTES Few 01/06/2024 12:04 PM T [facility] RBC COMMENT Present(A) RBC morphology appears normal, RBC morphology within normal limits for newborns. 01/06/2024 12:04 PM T [facility] LARGE PLATELETS Present 12:04 PM CDT [facility] Blood BLOOD SPECIMEN / Unknown Venipuncture / Unknown 01/06/2024 11:33 AM CDT 01/06/2024 11:36 AM CDT Jeny Moreira MD HEMATOLOGY Final Result [facility] [address] [place] [address] * PLATELET ESTIMATE (01/06/2024 11:33 AM CDT) PLATELET ESTIMATE Adequate Adequate, No estimate 01/06/2024 12:04 PM CDT [facility] Blood BLOOD SPECIMEN / Unknown Venipuncture / Unknown 01/06/2024 11:33 AM CDT 01/06/2024 11:36 AM CDT Jeny Moreira MD HEMATOLOGY Final Result Performing Organization Address [facility]/ZIP Co de Phone Number [facility] [address] [place] [address] * (ABNORMAL) HEMOGLOBIN A1C (01/06/2024 7:22 AM CDT) HEMOGLOBIN A1C 7.2(H) <5.7 % of total Hgb [facility] Comment: For someone without known diabetes, [...] change in test platforms from the Bender Spa Consultant to the David tiffanie [id number] may have shifted HbA1c results compared to historical results. Based on laboratory validation testing conducted at [facility], the David platform relative to the Bender [...] AM CDT 01/06/2024 7:23 AM CDT Narrative [facility] - 01/07/2024 5:37 AM CDT FASTING:YES FASTING: YES Pushpa Meier DO CHEMISTRY Final Result [facility] [address] [place] [address], [facility] [address] [place] [address] * (ABNORMAL) LIPID PANEL W REFLEX MEASURED LDL (10/06/2023 7:49 AM CDT) CHOLESTEROL,TOTAL 149 100 - 199 mg/dL 10/06/2023 8:45 AM [facility] Comment: Cholesterol, Total Reference Ranges Desirable <200 mg/dL Borderline 200-239 mg/dL High >=240 mg/dL TRIGLYCERIDES 183(H) <150 mg/dL 10/06/2023 8:45 AM [facility] HDL CHOLESTEROL 31(L) >40 mg/dL 8:45 AM [facility] NON-HDL CHOLESTEROL 118 <145 mg/dl 10/06/2023 8:45 AM [facility] CHOL/HDL RATIO 4.81(H) <4.50 10/06/2023 8:45 AM [facility] LDL CHOLESTEROL 81 <=130 mg/dL 10/06/2023 8:45 AM [facility] VLDL CHOLESTEROL 37(H) <=30 mg/dL 10/06/2023 8:45 AM [facility] PROVIDER ORDERED STATUS RANDOM 10/06/2023 8:45 AM [facility] Blood BLOOD SPECIMEN / Unknown Venipuncture / Unknown 10/06/2023 7:49 AM CDT 10/06/2023 7:49 AM CDT us Pushpa Meier DO CHEMISTRY Final Result [facility] [address] [place] [address] * ANTI HCV (10/30/2020 8:30 AM CDT) HEPATITIS C ANTIBODY Non-React asif Non-React asif 10/30/2020 5:23 PM CDT [facility] Comment:Antibodies to HCV no t detected; does not exclude the possibility of exposure to HCV. Blood BLOOD SPECIMEN / Unknown Butterfly / Unknown 10/30/2020 8:30 AM CDT 10/30/2020 8:32 AM CDT us Pushpa Meier DO SEND OUTS Final Result Performing Organization Address [facility]/ZIP Co de Phone Number [facility] [address] [place] [address], [place] from Last 3 Months or Most Recently Relevant to Health Maintenance Insurance [place] [address] [address] MEDICARE PB ONLY MEDICARE PART A HB ONLY MEDICARE PART B HB ONLY HC MEDICARE PPS [facility] Open Home Pro [facility] [place] [address] FAITHMITUL GRAVES VIANNEY GRAVES Advance Directives Documents on File Type Date Recorded Patient Contemporary Or Modern Dancer Expl anation POLST 01/31/2023 POLST 12/23/2022 2:28 PM POLST * DNR (Latest Code Status on File) Date Activated Date Inactivated Comments 03/10/2024 1:22 PM 03/17/2024 4:59 PM Question Answer Comments Code Status Discussion: Reviewed Preferences * Full Code Date Activated Date Inactivated Comments 03/06/2024 4:54 PM 03/10/2024 1:21 PM Question Answer Comments Code Status Discussion: [...] to Assess Preferences, Provider to review later Care Teams Human Services Manager Relationship Specialty Start Date End Date Pushpa Meier DO [address] [place] [id number] PCP - General Internal Medicine 01/17/20 Maxwell Brumfield MD [address] [address] [place] [address] Cardiology - CHF Cardiovascular Disease 01/17/20 Nurses, Advanced Heart Failure [address] [address] Advanced Heart Failure/Transplant Card 09/24/22 [facility] [address] [place] [address] 12/18/22
--- OUTSIDE RECORDS SUMMARY | 2024-03-19 09:51 | XMS_ITS | Referral Summary ---
Author Organization [place] Address [address] [place] [address] Care Team Providers Care Fire Captain Marine Name Role Phone Radha Rubio NP Primary [...] on file Legal Sex Male 9:49 AM DELIVER DRIVER Gender Identity Not on file Sexual Orientation Not on file Last Filed Vital Signs Vital Sign Reading Time Taken Comments Blood Pressure 144/87 04/18/2018 9:56 AM DELIVER DRIVER Pulse 67 04/18/2018 9:56 AM DELIVER DRIVER Temperature 36.8 C (98.3 F) 04/18/2018 9:56 AM DELIVER DRIVER Respiratory Rate 22 04/18/2018 9:56 AM DELIVER DRIVER Oxygen Saturation 93% 04/18/2018 11:00 AM DELIVER DRIVER Inhaled Oxygen Concentration - - Weight 222.3 kg (490 lb) 04/18/2018 9:56 AM DELIVER DRIVER Height 195.6 cm (6' 5) 04/18/2018 9:56 AM DELIVER DRIVER Body Mass Index 58.11 04/18/2018 9:56 AM DELIVER DRIVER Plan of Treatment Not on file Care Teams Fire Captain Marine Relationship Specialty Start Date End Date Radha Rubio NP [address] [place], [place] [address]myra JOSE ANGEL , [place] [address] [facility] - General 04/18/18
--- OUTSIDE RECORDS SUMMARY | 2024-03-19 09:51 | XMS_ITS | Clinical Summary ---
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 RUBBING MACHINE OPERATOR Gender Identity Not on file Sexual Orientation Not on file Last Filed Vital Signs Vital Sign Reading Time Taken Comments Blood Pressure 144/87 04/18/2018 9:56 AM SEAM RUBBING MACHINE OPERATOR Pulse 67 04/18/2018 9:56 AM SEAM RUBBING MACHINE OPERATOR Temperature 36.8 C (98.3 F) 04/18/2018 9:56 AM SEAM RUBBING MACHINE OPERATOR Respiratory Rate 22 04/18/2018 9:56 AM SEAM RUBBING MACHINE OPERATOR Oxygen Saturation 93% 04/18/2018 11:00 AM SEAM RUBBING MACHINE OPERATOR Inhaled Oxygen Concentration - - Weight 222.3 kg (490 lb) 04/18/2018 9:56 AM SEAM RUBBING MACHINE OPERATOR Height 195.6 cm (6' 5) 04/18/2018 9:56 AM SEAM RUBBING MACHINE OPERATOR Body Mass Index 58.11 04/18/2018 9:56 AM SEAM RUBBING MACHINE OPERATOR Plan of Treatment Not on file Care Teams Dental Assistant Relationship Specialty Start Date End Date Radha Rubio NP [address] [place], [place] [address]myra JOSE ANGEL , [place] [address] [facility] - General 04/18/18
== END 2024-03-19 09:49 | disposition home or self-care (01) ==
LOC: WOUND 09:49
PROVIDERS: PCP Internal Medicine; Visit Provider Nurse Practitioner Family
DX: I87.311 Chronic venous hypertension (idiopathic) with ulcer of right lower extremity (principal); I87.2 Venous insufficiency (chronic) (peripheral); E11.622 Type 2 diabetes mellitus with other skin ulcer; I89.0 Lymphedema, not elsewhere classified; L97.812 Non-pressure chronic ulcer of other part of right lower leg with fat layer exposed; Z79.84 Long term (current) use of oral hypoglycemic drugs
CPT/HCPCS: 97597

== ENCOUNTER 2024-03-27 13:48 | Outpatient (CLI) | payer MEDICARE, BC, SELFPAY | END 2024-03-27 13:49 | disposition home or self-care (01) | LOC: WOUND 13:48 | PROVIDERS: PCP Internal Medicine; Visit Provider Nurse Practitioner Family | DX: I87.311 Chronic venous hypertension (idiopathic) with ulcer of right lower extremity (principal); I87.2 Venous insufficiency (chronic) (peripheral); E11.622 Type 2 diabetes mellitus with other skin ulcer; L97.818 Non-pressure chronic ulcer of other part of right lower leg with other specified severity; Z79.84 Long term (current) use of oral hypoglycemic drugs | CPT/HCPCS: 15271; Q4201 ==

== ENCOUNTER 2024-04-02 09:50 | Outpatient (CLI) | payer MEDICARE, BC, SELFPAY | END 2024-04-02 09:51 | disposition home or self-care (01) | LOC: WOUND 09:50 | PROVIDERS: PCP Internal Medicine; Visit Provider Family Medicine | DX: I87.311 Chronic venous hypertension (idiopathic) with ulcer of right lower extremity (principal); I87.2 Venous insufficiency (chronic) (peripheral); I89.0 Lymphedema, not elsewhere classified; E11.622 Type 2 diabetes mellitus with other skin ulcer; I73.9 Peripheral vascular disease, unspecified; L97.812 Non-pressure chronic ulcer of other part of right lower leg with fat layer exposed; Z79.84 Long term (current) use of oral hypoglycemic drugs | CPT/HCPCS: 97597 ==

== ENCOUNTER 2024-04-16 09:45 | Outpatient (CLI) | payer MEDICARE, BC, SELFPAY | END 2024-04-16 09:46 | disposition home or self-care (01) | LOC: WOUND 09:45 | PROVIDERS: PCP Internal Medicine; Visit Provider Nurse Practitioner Family | DX: I87.311 Chronic venous hypertension (idiopathic) with ulcer of right lower extremity (principal); I87.2 Venous insufficiency (chronic) (peripheral); I89.0 Lymphedema, not elsewhere classified; E11.622 Type 2 diabetes mellitus with other skin ulcer; L97.812 Non-pressure chronic ulcer of other part of right lower leg with fat layer exposed; Z79.84 Long term (current) use of oral hypoglycemic drugs | CPT/HCPCS: 97597 ==

== ENCOUNTER 2024-04-23 09:42 | Outpatient (CLI) | payer MEDICARE, BC, SELFPAY | END 2024-04-23 09:43 | disposition home or self-care (01) | LOC: WOUND 09:42 | PROVIDERS: PCP Internal Medicine; Visit Provider Nurse Practitioner Family | DX: I87.311 Chronic venous hypertension (idiopathic) with ulcer of right lower extremity (principal); I87.2 Venous insufficiency (chronic) (peripheral); I89.0 Lymphedema, not elsewhere classified; I73.9 Peripheral vascular disease, unspecified; L97.818 Non-pressure chronic ulcer of other part of right lower leg with other specified severity | CPT/HCPCS: 97597 ==

== ENCOUNTER 2024-04-30 09:54 | Outpatient (CLI) | payer MEDICARE, BC, SELFPAY | END 2024-04-30 09:55 | disposition home or self-care (01) | LOC: WOUND 09:54 | PROVIDERS: PCP Internal Medicine; Visit Provider Nurse Practitioner Family | DX: I87.311 Chronic venous hypertension (idiopathic) with ulcer of right lower extremity (principal); I87.2 Venous insufficiency (chronic) (peripheral); E11.622 Type 2 diabetes mellitus with other skin ulcer; L97.818 Non-pressure chronic ulcer of other part of right lower leg with other specified severity; Z79.84 Long term (current) use of oral hypoglycemic drugs | CPT/HCPCS: 97597 ==

== ENCOUNTER 2024-05-07 09:49 | Outpatient (CLI) | payer MEDICARE, BC, SELFPAY | END 2024-05-07 09:50 | disposition home or self-care (01) | LOC: WOUND 09:49 | PROVIDERS: PCP Internal Medicine; Visit Provider Nurse Practitioner Family | DX: I87.311 Chronic venous hypertension (idiopathic) with ulcer of right lower extremity (principal); I87.2 Venous insufficiency (chronic) (peripheral); I73.9 Peripheral vascular disease, unspecified; E11.622 Type 2 diabetes mellitus with other skin ulcer; L97.818 Non-pressure chronic ulcer of other part of right lower leg with other specified severity; Z79.84 Long term (current) use of oral hypoglycemic drugs | CPT/HCPCS: 15271; Q4151 ==

== ENCOUNTER 2024-05-14 09:45 | Outpatient (CLI) | payer MEDICARE, BC, SELFPAY | END 2024-05-14 09:46 | disposition home or self-care (01) | LOC: WOUND 09:45 | PROVIDERS: PCP Internal Medicine; Visit Provider Nurse Practitioner Family | DX: I87.311 Chronic venous hypertension (idiopathic) with ulcer of right lower extremity (principal); I87.2 Venous insufficiency (chronic) (peripheral); I89.0 Lymphedema, not elsewhere classified; E11.622 Type 2 diabetes mellitus with other skin ulcer; L97.812 Non-pressure chronic ulcer of other part of right lower leg with fat layer exposed; Z79.84 Long term (current) use of oral hypoglycemic drugs | CPT/HCPCS: 97597 ==

== ENCOUNTER 2024-05-21 09:50 | Outpatient (CLI) | payer MEDICARE, BC, SELFPAY | END 2024-05-21 09:51 | disposition home or self-care (01) | LOC: WOUND 09:50 | PROVIDERS: PCP Internal Medicine; Visit Provider Nurse Practitioner Family | DX: I87.311 Chronic venous hypertension (idiopathic) with ulcer of right lower extremity (principal); I87.2 Venous insufficiency (chronic) (peripheral); I89.0 Lymphedema, not elsewhere classified; E11.622 Type 2 diabetes mellitus with other skin ulcer; L97.818 Non-pressure chronic ulcer of other part of right lower leg with other specified severity; Z79.84 Long term (current) use of oral hypoglycemic drugs | CPT/HCPCS: 97597 ==

== ENCOUNTER 2024-05-28 13:24 | Outpatient (CLI) | payer MEDICARE, BC, SELFPAY | END 2024-05-28 13:25 | disposition home or self-care (01) | LOC: WOUND 13:25 | PROVIDERS: PCP Internal Medicine; Visit Provider Nurse Practitioner Family | DX: I87.311 Chronic venous hypertension (idiopathic) with ulcer of right lower extremity (principal); I87.2 Venous insufficiency (chronic) (peripheral); I89.0 Lymphedema, not elsewhere classified; E11.622 Type 2 diabetes mellitus with other skin ulcer; L97.812 Non-pressure chronic ulcer of other part of right lower leg with fat layer exposed; Z79.84 Long term (current) use of oral hypoglycemic drugs | CPT/HCPCS: 97597 ==

== ENCOUNTER 2024-06-04 09:38 | Outpatient (CLI) | payer MEDICARE, BC, SELFPAY | END 2024-06-04 09:39 | disposition home or self-care (01) | LOC: WOUND 09:38 | PROVIDERS: PCP Internal Medicine; Visit Provider Nurse Practitioner Family | DX: I87.311 Chronic venous hypertension (idiopathic) with ulcer of right lower extremity (principal); I87.2 Venous insufficiency (chronic) (peripheral); I73.9 Peripheral vascular disease, unspecified; E11.622 Type 2 diabetes mellitus with other skin ulcer; L97.812 Non-pressure chronic ulcer of other part of right lower leg with fat layer exposed; Z79.84 Long term (current) use of oral hypoglycemic drugs | CPT/HCPCS: 15271; Q4151 ==

== ENCOUNTER 2024-06-11 09:49 | Outpatient (CLI) | payer MEDICARE, BC, SELFPAY | END 2024-06-11 09:50 | disposition home or self-care (01) | LOC: WOUND 09:49 | PROVIDERS: PCP Internal Medicine; Visit Provider Nurse Practitioner Family | DX: I87.311 Chronic venous hypertension (idiopathic) with ulcer of right lower extremity (principal); I87.2 Venous insufficiency (chronic) (peripheral); I73.9 Peripheral vascular disease, unspecified; I89.0 Lymphedema, not elsewhere classified; L97.818 Non-pressure chronic ulcer of other part of right lower leg with other specified severity | CPT/HCPCS: 97597 ==

== ENCOUNTER 2024-06-18 09:45 | Outpatient (CLI) | payer MEDICARE, BC, SELFPAY | END 2024-06-18 09:46 | disposition home or self-care (01) | LOC: WOUND 09:46 | PROVIDERS: PCP Internal Medicine; Visit Provider Nurse Practitioner Family | DX: I87.311 Chronic venous hypertension (idiopathic) with ulcer of right lower extremity (principal); I87.2 Venous insufficiency (chronic) (peripheral); I73.9 Peripheral vascular disease, unspecified; E11.622 Type 2 diabetes mellitus with other skin ulcer; L97.812 Non-pressure chronic ulcer of other part of right lower leg with fat layer exposed; Z79.84 Long term (current) use of oral hypoglycemic drugs | CPT/HCPCS: 97597 ==

== ENCOUNTER 2024-06-25 09:42 | Outpatient (CLI) | payer MEDICARE, BC, SELFPAY | END 2024-06-25 09:43 | disposition home or self-care (01) | LOC: WOUND 09:43 | PROVIDERS: PCP Internal Medicine; Visit Provider Nurse Practitioner Family | DX: I87.311 Chronic venous hypertension (idiopathic) with ulcer of right lower extremity (principal); I87.2 Venous insufficiency (chronic) (peripheral); E11.622 Type 2 diabetes mellitus with other skin ulcer; I89.0 Lymphedema, not elsewhere classified; L97.812 Non-pressure chronic ulcer of other part of right lower leg with fat layer exposed; Z79.84 Long term (current) use of oral hypoglycemic drugs | CPT/HCPCS: 97602; G0463 ==

== ENCOUNTER 2024-07-02 09:10 | Outpatient (CLI) | payer MEDICARE, BC, SELFPAY | END 2024-07-02 09:11 | disposition home or self-care (01) | LOC: WOUND 09:10 | PROVIDERS: PCP Internal Medicine; Visit Provider Nurse Practitioner Family | DX: I87.311 Chronic venous hypertension (idiopathic) with ulcer of right lower extremity (principal); I87.2 Venous insufficiency (chronic) (peripheral); E11.622 Type 2 diabetes mellitus with other skin ulcer; L97.812 Non-pressure chronic ulcer of other part of right lower leg with fat layer exposed; I89.0 Lymphedema, not elsewhere classified; Z79.84 Long term (current) use of oral hypoglycemic drugs | CPT/HCPCS: 97602; G0463 ==

== ENCOUNTER 2024-07-09 09:46 | Outpatient (CLI) | payer MEDICARE, BC, SELFPAY | END 2024-07-09 09:47 | disposition home or self-care (01) | LOC: WOUND 09:46 | PROVIDERS: PCP Internal Medicine; Visit Provider Nurse Practitioner Family | DX: I87.311 Chronic venous hypertension (idiopathic) with ulcer of right lower extremity (principal); I87.2 Venous insufficiency (chronic) (peripheral); E11.622 Type 2 diabetes mellitus with other skin ulcer; I89.0 Lymphedema, not elsewhere classified; L97.812 Non-pressure chronic ulcer of other part of right lower leg with fat layer exposed; Z79.84 Long term (current) use of oral hypoglycemic drugs | CPT/HCPCS: 11042 ==

== ENCOUNTER 2024-07-16 09:34 | Outpatient (CLI) | payer MEDICARE, BC, SELFPAY | END 2024-07-16 09:35 | disposition home or self-care (01) | LOC: WOUND 09:35 | PROVIDERS: PCP Internal Medicine; Visit Provider Surgery | DX: I87.311 Chronic venous hypertension (idiopathic) with ulcer of right lower extremity (principal); I87.2 Venous insufficiency (chronic) (peripheral); I89.0 Lymphedema, not elsewhere classified; E11.622 Type 2 diabetes mellitus with other skin ulcer; L97.812 Non-pressure chronic ulcer of other part of right lower leg with fat layer exposed; Z79.84 Long term (current) use of oral hypoglycemic drugs | CPT/HCPCS: 97597 ==

== ENCOUNTER 2024-07-23 14:02 | Outpatient (CLI) | payer MEDICARE, BC, SELFPAY | END 2024-07-23 14:03 | disposition home or self-care (01) | LOC: WOUND 14:02 | PROVIDERS: PCP Internal Medicine; Visit Provider Physician Assistant Surgical | DX: I87.311 Chronic venous hypertension (idiopathic) with ulcer of right lower extremity (principal); I87.2 Venous insufficiency (chronic) (peripheral); I89.0 Lymphedema, not elsewhere classified; I73.9 Peripheral vascular disease, unspecified; E11.622 Type 2 diabetes mellitus with other skin ulcer; L97.812 Non-pressure chronic ulcer of other part of right lower leg with fat layer exposed; Z79.84 Long term (current) use of oral hypoglycemic drugs | CPT/HCPCS: 11042 ==

== ENCOUNTER 2024-07-30 09:48 | Outpatient (CLI) | payer MEDICARE, BC, SELFPAY | END 2024-07-30 09:49 | disposition home or self-care (01) | LOC: WOUND 09:49 | PROVIDERS: PCP Internal Medicine; Visit Provider Nurse Practitioner Family | DX: I87.311 Chronic venous hypertension (idiopathic) with ulcer of right lower extremity (principal); I87.2 Venous insufficiency (chronic) (peripheral); E11.622 Type 2 diabetes mellitus with other skin ulcer; I73.9 Peripheral vascular disease, unspecified; I89.0 Lymphedema, not elsewhere classified; L97.812 Non-pressure chronic ulcer of other part of right lower leg with fat layer exposed; Z79.84 Long term (current) use of oral hypoglycemic drugs | CPT/HCPCS: 97597 ==

== ENCOUNTER 2024-08-06 09:53 | Outpatient (CLI) | payer MEDICARE, BC, SELFPAY | END 2024-08-06 09:54 | disposition home or self-care (01) | LOC: WOUND 09:54 | PROVIDERS: PCP Internal Medicine; Visit Provider Nurse Practitioner Family | DX: I87.311 Chronic venous hypertension (idiopathic) with ulcer of right lower extremity (principal); I87.2 Venous insufficiency (chronic) (peripheral); I89.0 Lymphedema, not elsewhere classified; E11.622 Type 2 diabetes mellitus with other skin ulcer; L97.812 Non-pressure chronic ulcer of other part of right lower leg with fat layer exposed; I73.9 Peripheral vascular disease, unspecified; Z79.84 Long term (current) use of oral hypoglycemic drugs | CPT/HCPCS: 97597 ==

== ENCOUNTER 2024-08-15 13:09 | Outpatient (CLI) | payer MEDICARE, BC, SELFPAY | END 2024-08-15 13:10 | disposition home or self-care (01) | LOC: WOUND 13:09 | PROVIDERS: PCP Internal Medicine; Visit Provider Surgery | DX: I87.311 Chronic venous hypertension (idiopathic) with ulcer of right lower extremity (principal); I87.2 Venous insufficiency (chronic) (peripheral); I89.0 Lymphedema, not elsewhere classified; E11.622 Type 2 diabetes mellitus with other skin ulcer; L97.812 Non-pressure chronic ulcer of other part of right lower leg with fat layer exposed; Z79.84 Long term (current) use of oral hypoglycemic drugs | CPT/HCPCS: 11042 ==

== ENCOUNTER 2024-08-20 09:48 | Outpatient (CLI) | payer MEDICARE, BC, SELFPAY | END 2024-08-20 09:49 | disposition home or self-care (01) | LOC: WOUND 09:48 | PROVIDERS: PCP Internal Medicine; Visit Provider Nurse Practitioner Family | DX: I87.311 Chronic venous hypertension (idiopathic) with ulcer of right lower extremity (principal); I87.2 Venous insufficiency (chronic) (peripheral); I89.0 Lymphedema, not elsewhere classified; E11.622 Type 2 diabetes mellitus with other skin ulcer; I73.9 Peripheral vascular disease, unspecified; L97.812 Non-pressure chronic ulcer of other part of right lower leg with fat layer exposed; Z79.84 Long term (current) use of oral hypoglycemic drugs | CPT/HCPCS: 11042 ==

== ENCOUNTER 2024-08-27 09:42 | Outpatient (CLI) | payer MEDICARE, BC, SELFPAY | END 2024-08-27 09:43 | disposition home or self-care (01) | LOC: WOUND 09:42 | PROVIDERS: PCP Internal Medicine; Visit Provider Nurse Practitioner Family | DX: I87.311 Chronic venous hypertension (idiopathic) with ulcer of right lower extremity (principal); I87.2 Venous insufficiency (chronic) (peripheral); E11.622 Type 2 diabetes mellitus with other skin ulcer; I89.0 Lymphedema, not elsewhere classified; I73.9 Peripheral vascular disease, unspecified; L97.812 Non-pressure chronic ulcer of other part of right lower leg with fat layer exposed; Z79.84 Long term (current) use of oral hypoglycemic drugs | CPT/HCPCS: 97597 ==

== ENCOUNTER 2024-09-10 09:48 | Outpatient (CLI) | payer MEDICARE, BC, SELFPAY | END 2024-09-10 09:49 | disposition home or self-care (01) | PROVIDERS: PCP Internal Medicine; Visit Provider Physician Assistant | DX: I87.311 Chronic venous hypertension (idiopathic) with ulcer of right lower extremity (principal); I87.2 Venous insufficiency (chronic) (peripheral); E11.622 Type 2 diabetes mellitus with other skin ulcer; I89.0 Lymphedema, not elsewhere classified; I73.9 Peripheral vascular disease, unspecified; L97.812 Non-pressure chronic ulcer of other part of right lower leg with fat layer exposed; Z79.84 Long term (current) use of oral hypoglycemic drugs | CPT/HCPCS: 97597 ==

== ENCOUNTER 2024-09-24 13:19 | Outpatient (CLI) | payer MEDICARE, BC, SELFPAY | END 2024-09-24 13:20 | disposition home or self-care (01) | LOC: WOUND 13:19 | PROVIDERS: PCP Internal Medicine; Visit Provider Physician Assistant Surgical | DX: I87.313 Chronic venous hypertension (idiopathic) with ulcer of bilateral lower extremity (principal); I87.2 Venous insufficiency (chronic) (peripheral); I89.0 Lymphedema, not elsewhere classified; I73.9 Peripheral vascular disease, unspecified; E11.622 Type 2 diabetes mellitus with other skin ulcer; L97.812 Non-pressure chronic ulcer of other part of right lower leg with fat layer exposed; L97.822 Non-pressure chronic ulcer of other part of left lower leg with fat layer exposed; Z79.84 Long term (current) use of oral hypoglycemic drugs | CPT/HCPCS: 11042; 97597; G0463 ==

== ENCOUNTER 2024-10-08 14:26 | Outpatient (CLI) | payer MEDICARE, BC, SELFPAY | END 2024-10-08 14:27 | disposition home or self-care (01) | LOC: WOUND 14:26 | PROVIDERS: PCP Internal Medicine; Visit Provider Physician Assistant | DX: I87.311 Chronic venous hypertension (idiopathic) with ulcer of right lower extremity (principal); I87.2 Venous insufficiency (chronic) (peripheral); I73.9 Peripheral vascular disease, unspecified; I89.0 Lymphedema, not elsewhere classified; E11.622 Type 2 diabetes mellitus with other skin ulcer; L97.812 Non-pressure chronic ulcer of other part of right lower leg with fat layer exposed; Z79.84 Long term (current) use of oral hypoglycemic drugs | CPT/HCPCS: 97597 ==

== ENCOUNTER 2024-10-22 14:14 | Outpatient (CLI) | payer MEDICARE, BC, SELFPAY | END 2024-10-22 14:15 | disposition home or self-care (01) | LOC: WOUND 14:14 | PROVIDERS: PCP Internal Medicine; Visit Provider Physician Assistant Surgical | DX: I87.313 Chronic venous hypertension (idiopathic) with ulcer of bilateral lower extremity (principal); I87.2 Venous insufficiency (chronic) (peripheral); I89.0 Lymphedema, not elsewhere classified; E11.622 Type 2 diabetes mellitus with other skin ulcer; L97.812 Non-pressure chronic ulcer of other part of right lower leg with fat layer exposed; L97.822 Non-pressure chronic ulcer of other part of left lower leg with fat layer exposed; I73.9 Peripheral vascular disease, unspecified; E66.01 Morbid (severe) obesity due to excess calories; Z68.43 Body mass index [BMI] 50.0-59.9, adult; Z79.84 Long term (current) use of oral hypoglycemic drugs | CPT/HCPCS: 11042; 11045 ==

== ENCOUNTER 2024-11-05 14:16 | Outpatient (CLI) | payer MEDICARE, BC, SELFPAY ==
[2024-11-05 15:30] LABS: Hematocrit 46.2 % (37.0-53.0); Hemoglobin* 13.8 gm/dL (13.5-17.5); Immature Granulocytes Abs Auto 0.02 K/uL (0.00-0.30); Immature Granulocytes Pct Auto 0.2 %; Mean Corpuscular HGB Conc 30 gm/dL (32-36); Mean Corpuscular Hemoglobin 27 pg (26-34); Mean Corpuscular Volume 91 fL (80-100); RDW Coefficient of Variation % 18.6 % (11.5-15.5); Red Blood Count 5.07 m/uL (4.30-5.90); White Blood Count* 8.04 K/uL (4.50-11.00)
[2024-11-05 15:36] LABS: Lymphocytes Absolute Auto 1.10 K/uL (0.90-2.90); Slide Review Reflex No
[2024-11-05 16:21] LABS: Erythrocyte SedimentationRate* 34 mm/hr (2-15)
== END 2024-11-05 14:17 | disposition home or self-care (01) ==
LOC: WOUND 14:17
PROVIDERS: PCP Internal Medicine; Visit Provider Physician Assistant Surgical
DX: I87.313 Chronic venous hypertension (idiopathic) with ulcer of bilateral lower extremity (principal); I87.2 Venous insufficiency (chronic) (peripheral); I89.0 Lymphedema, not elsewhere classified; I73.9 Peripheral vascular disease, unspecified; E11.622 Type 2 diabetes mellitus with other skin ulcer; L97.812 Non-pressure chronic ulcer of other part of right lower leg with fat layer exposed; L97.822 Non-pressure chronic ulcer of other part of left lower leg with fat layer exposed; Z79.84 Long term (current) use of oral hypoglycemic drugs
CPT/HCPCS: 11042; 11045; 36415; 85025; 85651; 86140; 93926; G0463

== ENCOUNTER 2024-11-05 15:18 | Outpatient (CLI) | payer MEDICARE, BC, SELFPAY ==
--- NOTE | 2024-11-05 15:00 | CRLHL7_ITS ---
For Patients: As a result of the Century Cures Act, medical imaging exams and procedure reports are released immediately into your electronic medical record. You may view this report before your referring provider. If you have questions, please contact your health care provider. INDICATION: Nonhealing leg ulcer. TECHNIQUE: US arterial lower extremity bilateral with kitchen scale, color-flow Doppler and spectral analysis. COMPARISON: None. FINDINGS: RIGHT: BRAZER ELECTRONIC: 120 cm/sec; triphasic waveforms DFA: 79 cm/sec; monophasic waveforms SFA PROX: 94 cm/sec; triphasic waveforms SFA MID: 113 cm/sec; monophasic waveforms SFA DIST: 67 cm/sec; monophasic waveforms POP: 67 cm/sec; monophasic waveforms MERI: 30 cm/sec; monophasic waveforms HEMODIALYSIS LAB TECHNICIAN: 10 cm/sec; monophasic waveforms OCTAVIANO: 17 cm/sec; monophasic waveforms DPA: 10 cm/sec; monophasic waveforms LEFT: BRAZER ELECTRONIC: 109 cm/sec; triphasic waveforms DFA: 111 cm/sec; monophasic waveforms SFA PROX: 126 cm/sec; triphasic waveforms SFA MID: 106 cm/sec; triphasic waveforms SFA DIST: 115 cm/sec; triphasic waveforms POP: 72 cm/sec; triphasic waveforms MERI: 42 cm/sec; monophasic waveforms HEMODIALYSIS LAB TECHNICIAN: 63 cm/sec; monophasic waveforms OCTAVIANO: 27 cm/sec; monophasic waveforms DPA: 12 cm/sec; monophasic waveforms IMPRESSION: Patent bilateral lower extremity arteries. No occlusions or significant stenoses. Blood flow is demonstrated in both feet. Dictated by Nando Bravo MD @ 11/10/2024 8:29:33 AM (Electronically Signed)
== END 2024-11-05 15:19 | disposition home or self-care (01) ==
LOC: US 15:19
PROVIDERS: PCP Internal Medicine; Visit Provider Physician Assistant Surgical
DX: I73.9 Peripheral vascular disease, unspecified (principal); I87.311 Chronic venous hypertension (idiopathic) with ulcer of right lower extremity; I87.312 Chronic venous hypertension (idiopathic) with ulcer of left lower extremity
CPT/HCPCS: 93926

== ENCOUNTER 2024-11-19 12:30 | Outpatient (CLI) | payer MEDICARE, BC, SELFPAY | END 2024-11-19 12:31 | disposition home or self-care (01) | LOC: WOUND 12:31 | PROVIDERS: PCP Internal Medicine; Visit Provider Family Medicine | DX: I87.313 Chronic venous hypertension (idiopathic) with ulcer of bilateral lower extremity (principal); I87.2 Venous insufficiency (chronic) (peripheral); I89.0 Lymphedema, not elsewhere classified; L97.812 Non-pressure chronic ulcer of other part of right lower leg with fat layer exposed; L97.828 Non-pressure chronic ulcer of other part of left lower leg with other specified severity; E11.621 Type 2 diabetes mellitus with foot ulcer; L97.522 Non-pressure chronic ulcer of other part of left foot with fat layer exposed; L03.116 Cellulitis of left lower limb; L85.1 Acquired keratosis [keratoderma] palmaris et plantaris; Z79.84 Long term (current) use of oral hypoglycemic drugs | CPT/HCPCS: 11042; 11045; 87070; 87186; 97597; G0463 ==

== ENCOUNTER 2024-12-03 12:46 | Outpatient (CLI) | payer MEDICARE, BC, SELFPAY ==
--- NOTE | 2024-12-03 14:40 | CRLHL7_ITS ---
For Patients: As a result of the Century Cures Act, medical imaging exams and procedure reports are released immediately into your electronic medical record. You may view this report before your referring provider. If you have questions, please contact your health care provider. INDICATION: Type 2 diabetes mellitus with foot ulcer. (Sic) COMPARISON: None available. TECHNIQUE: Three views of the left foot. FINDINGS: Mineralization: Forefoot osteopenia. Alignment: Normal. Bones and Joints: No focal osteolysis to indicate osteomyelitis. No fracture is identified. Incidental note is made of posterior calcaneal spurs. Soft Tissues: Diffuse soft tissue swelling, most pronounced about the hindfoot, consistent with cellulitis. No ulcer is identified on this radiographic study. Dystrophic calcification in the plantar soft tissues of the hindfoot on the lateral view. IMPRESSION: 1. Diffuse soft tissue swelling, most pronounced about the hindfoot, consistent with cellulitis. No ulcer is identified on this radiographic study. 2. No focal osteolysis to indicate osteomyelitis. Consider further evaluation (e.g. MRI with intravenous contrast), as clinically warranted. Dictated by Sinan Muller MD @ 12/03/2024 3:31:14 PM (Electronically Signed)
== END 2024-12-03 12:47 | disposition home or self-care (01) ==
PROVIDERS: PCP Internal Medicine; Visit Provider Physician Assistant
DX: E11.621 Type 2 diabetes mellitus with foot ulcer (principal); L97.522 Non-pressure chronic ulcer of other part of left foot with fat layer exposed; I87.311 Chronic venous hypertension (idiopathic) with ulcer of right lower extremity; I87.2 Venous insufficiency (chronic) (peripheral); I89.0 Lymphedema, not elsewhere classified; I73.9 Peripheral vascular disease, unspecified; E11.622 Type 2 diabetes mellitus with other skin ulcer; L97.812 Non-pressure chronic ulcer of other part of right lower leg with fat layer exposed; Z79.84 Long term (current) use of oral hypoglycemic drugs
CPT/HCPCS: 73630; 97597; 97598; G0463

== ENCOUNTER 2024-12-17 09:13 | Outpatient (CLI) | payer MEDICARE, BC, SELFPAY | END 2024-12-17 09:14 | disposition home or self-care (01) | LOC: WOUND 09:14 | PROVIDERS: PCP Internal Medicine; Visit Provider Family Medicine | DX: I87.311 Chronic venous hypertension (idiopathic) with ulcer of right lower extremity (principal); I87.2 Venous insufficiency (chronic) (peripheral); I89.0 Lymphedema, not elsewhere classified; L97.812 Non-pressure chronic ulcer of other part of right lower leg with fat layer exposed; E11.621 Type 2 diabetes mellitus with foot ulcer; L97.528 Non-pressure chronic ulcer of other part of left foot with other specified severity; L85.1 Acquired keratosis [keratoderma] palmaris et plantaris; Z79.84 Long term (current) use of oral hypoglycemic drugs | CPT/HCPCS: 11042; 11045; 97597 ==

== ENCOUNTER 2025-01-01 13:20 | Outpatient (CLI) | payer MEDICARE, BC, SELFPAY | END 2025-01-01 13:21 | disposition home or self-care (01) | LOC: WOUND 13:20 | PROVIDERS: PCP Internal Medicine; Visit Provider Nurse Practitioner Family | DX: I87.311 Chronic venous hypertension (idiopathic) with ulcer of right lower extremity (principal); I87.2 Venous insufficiency (chronic) (peripheral); I89.0 Lymphedema, not elsewhere classified; I73.9 Peripheral vascular disease, unspecified; E11.622 Type 2 diabetes mellitus with other skin ulcer; L97.812 Non-pressure chronic ulcer of other part of right lower leg with fat layer exposed; Z79.84 Long term (current) use of oral hypoglycemic drugs | CPT/HCPCS: 11042; 11045 ==

== ENCOUNTER 2025-01-14 09:13 | Outpatient (CLI) | payer MEDICARE, BC, SELFPAY | END 2025-01-14 09:14 | disposition home or self-care (01) | LOC: WOUND 09:13 | PROVIDERS: PCP Internal Medicine; Visit Provider Family Medicine | DX: I87.311 Chronic venous hypertension (idiopathic) with ulcer of right lower extremity (principal); I87.2 Venous insufficiency (chronic) (peripheral); I89.0 Lymphedema, not elsewhere classified; I73.9 Peripheral vascular disease, unspecified; E11.622 Type 2 diabetes mellitus with other skin ulcer; L97.812 Non-pressure chronic ulcer of other part of right lower leg with fat layer exposed; Z79.84 Long term (current) use of oral hypoglycemic drugs | CPT/HCPCS: 11042; 11045; G0463 ==

== ENCOUNTER 2025-01-28 09:13 | Outpatient (CLI) | payer MEDICARE, BC, SELFPAY | END 2025-01-28 09:14 | disposition home or self-care (01) | LOC: WOUND 09:13 | PROVIDERS: PCP Internal Medicine; Visit Provider Family Medicine | DX: I87.311 Chronic venous hypertension (idiopathic) with ulcer of right lower extremity (principal); I87.2 Venous insufficiency (chronic) (peripheral); I89.0 Lymphedema, not elsewhere classified; I73.9 Peripheral vascular disease, unspecified; E11.622 Type 2 diabetes mellitus with other skin ulcer; L97.812 Non-pressure chronic ulcer of other part of right lower leg with fat layer exposed; Z79.84 Long term (current) use of oral hypoglycemic drugs | CPT/HCPCS: 11042; 11045 ==

== ENCOUNTER 2025-02-11 08:52 | Outpatient (CLI) | payer MEDICARE, BC, SELFPAY | END 2025-02-11 08:53 | disposition home or self-care (01) | LOC: WOUND 08:53 | PROVIDERS: PCP Internal Medicine; Visit Provider Family Medicine | DX: I87.311 Chronic venous hypertension (idiopathic) with ulcer of right lower extremity (principal); I87.2 Venous insufficiency (chronic) (peripheral); I89.0 Lymphedema, not elsewhere classified; I73.9 Peripheral vascular disease, unspecified; E11.622 Type 2 diabetes mellitus with other skin ulcer; L97.812 Non-pressure chronic ulcer of other part of right lower leg with fat layer exposed; Z79.84 Long term (current) use of oral hypoglycemic drugs | CPT/HCPCS: 97597; 97598 ==

== ENCOUNTER 2025-02-25 09:00 | Outpatient (CLI) | payer MEDICARE, BC, SELFPAY | END 2025-02-25 09:01 | disposition home or self-care (01) | LOC: WOUND 09:01 | PROVIDERS: PCP Internal Medicine; Visit Provider Nurse Practitioner Family | DX: I87.311 Chronic venous hypertension (idiopathic) with ulcer of right lower extremity (principal); I87.2 Venous insufficiency (chronic) (peripheral); I73.9 Peripheral vascular disease, unspecified; L97.812 Non-pressure chronic ulcer of other part of right lower leg with fat layer exposed; I89.0 Lymphedema, not elsewhere classified; L97.322 Non-pressure chronic ulcer of left ankle with fat layer exposed; E11.622 Type 2 diabetes mellitus with other skin ulcer; Z79.84 Long term (current) use of oral hypoglycemic drugs | CPT/HCPCS: 97597; 97598 ==

== ENCOUNTER 2025-03-11 12:30 | Outpatient (CLI) | payer MEDICARE, BC, SELFPAY | END 2025-03-11 12:31 | disposition home or self-care (01) | LOC: WOUND 12:30 | PROVIDERS: PCP Internal Medicine; Visit Provider Physician Assistant Surgical | DX: I87.311 Chronic venous hypertension (idiopathic) with ulcer of right lower extremity (principal); I87.2 Venous insufficiency (chronic) (peripheral); E11.622 Type 2 diabetes mellitus with other skin ulcer; L97.812 Non-pressure chronic ulcer of other part of right lower leg with fat layer exposed; I89.0 Lymphedema, not elsewhere classified; Z79.84 Long term (current) use of oral hypoglycemic drugs | CPT/HCPCS: 11042; 11045 ==